=== PATIENT | female | born 1940 | race Caucasian/White ===

== ENCOUNTER 2022-03-11 17:16 | Emergency (ER) | payer OTHER ==
--- OUTSIDE RECORDS SUMMARY | 2022-03-11 17:24 | XMS REPORT | Continuity of Care Document ---
:1940 Author Organization [facility] t Address [address] [place] [address] Care Team Providers Name Role Phone FLORIAN Primary Care Physician Unavailable Rashida Attending Clinician Unavailable Rashida Attending Clinician Unavailable JEWELL Attending Clinician Unavailable Andrew IRAHETA, A Attending Clinician Unavailable JEWELL Attending Clinician Unavailable Franklyn HERNANDEZ Attending Clinician Dany HERNANDEZ Attending Clinician Jewell HERNANDEZ Attending Clinician MAYE Attending Clinician Unavailable Doctor Unassigned, Name Attending Clinician Unavailable Giorgio HERNANDEZ Attending Clinician GIORGIO Attending Clinician Unavailable HOSSEINR Attending Clinician Unavailable Bebe Hale DO Attending Clinician Bebe HALE Attending Clinician Unavailable ZITA Attending Clinician Unavailable TARA Attending Clinician Unavailable Daryl IRAHETA, M Attending Clinician Juan Carlos IRAHETA, L Attending Clinician Singer CHAVEZ Attending Clinician Bbee Johnson MD Attending Clinician Nayely HERNANDEZ Attending Clinician Trevor HERNANDEZ Attending Clinician Attending Clinician Unavailable Rashida Admitting Clinician Unavailable Milton Box Admitting Clinician Unavailable JEWELL Admitting Clinician Unavailable Jewell HERNANDEZ Admitting Clinician Giorgio HERNANDEZ Admitting Clinician GIORGIO Admitting Clinician Unavailable SICKLER Admitting Clinician Unavailable Trevor HERNANDEZ Admitting Clinician Payers Payer Name Policy Type Policy Number Effective Date Expiration Date S [place] Problems Condition Condition Condition Status Onset Resolution Last Treating Co mments Source Name Details Category Date Date Treatment Clinician Date Chest pain Chest pain Disease Active U nivers 5-18 ity of 00:00: [place] 00 Medical Branch Elevated Elevated Disease Active 2020-10 Unive rs troponin troponin 0-21 ity of 00:00: [place] 00 Medical Branch Essential Essential Disease Active 2020-10 Uni vers hypertensi hypertensi 0-21 it y of on on 00:00: [place] 00 Medical Branch 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 0-21 ity of disease disease 00:00: [place] involving involving 00 Medi lyssa [place] Branch coronary coronary artery of artery of [place] heart heart without without angina angina pectoris pectoris Dyslipidem Dyslipidem Disease Active 2020-10 U nivers ia ia 0-21 ity of 00:00: [place] 00 Medical Branch Elevated Elevated Disease Active 2020-10 Unive rs brain brain 0-21 ity of natriureti natriureti 00:00: [place] c peptide c peptide 00 Medi lyssa (BNP) (BNP) Branch level level Syncopal Syncopal Disease Active 2020-10 Unive rs episodes episodes 0-21 ity of 00:00: [place] 00 Medical Branch AMS AMS Disease Active 2020-10 Univers (altered (altered 0-21 ity of mental mental 00:00: [place] status) status) 00 Medical Branch New onset New onset Disease Active 2019-10 Uni vers a-fib a-fib 2-01 ity of 00:00: [place] 00 Medical Branch PAF PAF Disease Active 2019-10 Univers (paroxysma (paroxysma 2- it y of l atrial l atrial 00:00: [place] fibrillati fibrillati 00 Me dical on) on) Branch Acute Acute Disease Active 2019-10 Univers renal renal 1-29 ity of failure failure 00:00: [place] 00 Medical Branch Tachycardi Tachycardi Disease Active 2019-10 U nivers a a 1-29 ity of 00:00: [place] 00 Medical Branch Dementia Dementia Disease Active Unive rs 6-29 ity of 00:00: [place] 00 Medical Branch Allergies, Adverse Reactions, Alerts Allergy Allergy Status Severity Reaction(s) Onset Inactive Treating Comm ents Source Name Type Date Date Clinician No Known DA Active [facility] 03-03 [facility] NO KNOWN Drug Active Univers ALLERGIE Class ity of S [place] [facility] Social History Social Habit Start Date Stop Date Quantity Comments Source Exposure to 2022-02-17 2022-02-27 Not sure [facility] SARS-CoV-2 00:00:00 21:46:00 [facility] (event) [facility] Alcohol intake 2022-02-27 2022-02-27 Ex-drinker [facility] 00:00:00 00:00:00 (finding) [place] [facility] Tobacco use and 2021-08-03 2021-08-03 Never used Universit y of exposure 00:00:00 00:00:00 [place] [facility] Tobacco Comment 2021-08-03 2021-08-03 Stopped in 1963 Univ ersity of 00:00:00 00:00:00 [place] [facility] Sex Ass[birth year] At [birth year] Universit y of 00:00:00 00:00:00 [place] [facility] Smoking Status Start Date Stop Date Source Former smoker 2021-08-03 00:00:00 2021-08-03 00:00:00 Universi ty [facility] Unknown if ever smoked [facility] Medications Ordered Filled Start Stop Current Ordering Indication Dosage Frequency Signature Comments Components Source Medication Medication Date Date Medication? Clinician (SIG) Name Name NaCl 0.9% Yes Infuse Univer s (NS) PgBk 5-22 every 24 ity of 50 mL with 00:00: (twenty-[place] cefTRIAXone 00 ur) hours. Me dical 1 gram SolR Branch NaCl 0.9% Yes Infuse Univer s (NS) PgBk 5-22 every 24 ity of 50 mL with 00:00: (twenty-fo [place] cefTRIAXone 00 ur) hours. Me dical 1 gram SolR Branch pantoprazol Yes 40mg 40 mg, Univ ers e 03-03 Oral, ity of (PROTONIX) 14:00: DAILY, [place] EC tablet 00 First dose Medi lyssa 40 mg on Sat Branch 03/03/22 at 0900, Until Discontinu ed, Routine donepeziL 0 Yes 10mg Take 10 mg Un matti 10 mg 5-21 by mouth ity of tablet 02:42: every [place] [address] morning. Medical Branch memantine 0 Yes 28mg Take 28 mg Un matti HCl 5-21 by mouth ity of (MEMANTINE 02:42: daily. [place] ORAL) Medical Branch glimepiride 0 Yes 1mg Take 1 mg U nivers 1 mg tablet 5-21 by mouth ity of 02:42: daily with [place] [address] breakfast. Medical Branch psyllium Yes Take by Unive rs husk 5-21 mouth 2 ity of (METAMUCIL 02:42: (two) [place] ORAL) 33 times Medical daily. Branch atorvastati Yes 40mg Take 40 mg Univers n 40 mg 5-21 by mouth ity of tablet 02:42: at [place] [address] bedtime. Medical Branch carvediloL Yes 3.125mg Take 3.125 Univers 3.125 mg 5-21 mg by ity of tablet 02:42: mouth [place] [address] daily. Medical Branch carvediloL Yes 6.25mg Take 6.25 Univers 6.25 mg 5-21 mg by ity of tablet 02:42: mouth at [place] [address] bedtime. Medical Branch aspirin 81 0 Yes 81mg Take 81 mg U nivers mg chewable 5-21 by mouth ity of tablet 02:42: daily. [place] [address] Medical Branch donepeziL 0 Yes 10mg Take 10 mg Un matti 10 mg 5-21 by mouth ity of tablet 02:42: every [place] [address] morning. Medical Branch memantine Yes 28mg Take 28 mg Un matti HCl 5-21 by mouth ity of (MEMANTINE 02:42: daily. [place] ORAL) Medical Branch glimepiride 0 Yes 1mg Take 1 mg U nivers 1 mg tablet 5-21 by mouth ity of 02:42: daily with [place] [address] breakfast. Medical Branch psyllium Yes Take by Unive rs husk 5-21 mouth 2 ity of (METAMUCIL 02:42: (two) [place] ORAL) 33 times Medical daily. Branch atorvastati 2022-0 Yes 40mg Take 40 mg Univers n 40 mg 5-21 by mouth ity of tablet 02:42: at [place] [address] bedtime. Medical Branch carvediloL 2021-0 Yes 3.125mg Take 3.125 Univers 3.125 mg 5-21 mg by ity of tablet 02:42: mouth [place] [address] daily. Medical Branch carvediloL 2021-0 Yes 6.25mg Take 6.25 Univers 6.25 mg 5-21 mg by ity of tablet 02:42: mouth at [place] [address] bedtime. Medical Branch aspirin 81 2021-0 Yes 81mg Take 81 mg U nivers mg chewable 5-21 by mouth ity of tablet 02:42: daily. [place] [address] Medical Branch enoxaparin 2021-0 Yes 61mg inject Unive rs 60 mg/0.6 5-21 0.61 mL ity of mL 00:00: under the [place] injection 00 skin every Medi lyssa 12 Branch (twelve) hours. nitroglycer 2021-[address] 1 Uni vers in 0.4 mg 5-21 tablet ity of sublingual 00:00: under the [place] tablet 00 tongue Medical every 5 Branch (five) minutes as needed for Chest pain. pantoprazol 2021-0 Yes 40mg Take 1 Univ ers e 40 mg EC 5-21 tablet by ity of tablet 00:00: mouth [place] 00 daily. Medical Branch enoxaparin 2021-0 Yes 61mg inject Unive rs 60 mg/0.6 5-21 0.61 mL ity of mL 00:00: under the [place] injection 00 skin every Medi lyssa 12 Branch (twelve) hours. nitroglycer 2021-[address] 1 Uni vers in 0.4 mg 5-21 tablet ity of sublingual 00:00: under the [place] tablet 00 tongue Medical every 5 Branch (five) minutes as needed for Chest pain. pantoprazol 2021-0 Yes 40mg Take 1 Univ ers e 40 mg EC 5-21 tablet by ity of tablet 00:00: mouth [place] 00 daily. Medical Branch aspirin 2021-0 Yes 81mg 81 mg, Univers chewable 5-19 Oral, ity of tablet 81 14:00: DAILY, [place] mg 00 First dose Medical on [place] Branch 03/01/22 at 0900, Until Discontinu ed, Routine cefTRIAXone 2022-0 Yes 1000mg 1,000 mg, Univers (ROCEPHIN) 5-19 IV ity of 1,000 mg in 05:00: Piggyback, [place] NaCl 0.9% 00 Q24H ABX, Medic al (NS) 50 mL First dose Bra nch MINI-BAG (after last reorder) on [place] 03/01/22 at 0000, Until Discontinu ed, Administer over 30 Minutes, 50 mL
Reas on for Anti-Infec tive: Empiric Therapy for Suspected Infection< br>Empiric Therapy Site: Urine
D uration of therapy: 7 days carvediloL 0 Yes 6.25mg 6.25 mg, U nivers (COREG) 5-19 Oral, QHS, ity of tablet 6.25 02:00: First dose [place] mg 00 on [facility] 02/28/22 at Branch 2100, Until Discontinu ed, Routine atorvastati 0 Yes 40mg 40 mg, Univ ers n (LIPITOR) -19 Oral, QHS, it y of tablet 40 02:00: First dose [place] mg 00 on [facility] 02/28/22 at Branch 2100, Until Discontinu ed, Routine enoxaparin 0 Yes 1mg/kg 60 mg Univ ers (LOVENOX) 18 (rounded ity of injection 20:00: from 61.2 [place] 60 mg 00 mg = 1 Medical mg/kg Branch ?61.2 kg), Subcutaneo us, Q12H, First dose (after last reorder) on [facility] 02/28/22 at 1500, Until Discontinu ed, MARIELA memantine 0 Yes 20mg 20 mg, Univer s (NAMENDA) -18 Oral, ity of tablet 20 14:00: DAILY, [place] mg 00 First dose Medical on [facility] 02/28/22 at 0900, Until Discontinu ed
Facu lty member approving Restricted medication : NANDO MATTHEWS isosorbide 0 Yes 30mg 30 mg, Unive rs mononitrate 5-18 Oral, ity of (IMDUR) 24 14:00: DAILY, [place] hr tablet 00 First dose Medi lyssa 30 mg on [facility] 02/28/22 at 0900, Until Discontinu ed, Routine donepeziL Yes 10mg 10 mg, Univer s (ARICEPT) 02-28 Oral, QAM, ity of tablet 10 14:00: First dose [place] mg 00 on [facility] Medical 02/28/22 at Branch 0900, Until Discontinu ed, Routine aspirin No 325mg 325 mg, Unive rs tablet 325 02-2818 Oral, ity of mg 13:00: 13:47 ONCE, 1 [place] 00 :00 dose, On Medical [facility] Branch 02/28/22 at 0800, Routine artificial Yes 1[drp] 1 Drop, Un matti tears(hypro 02-28 Both Eyes, it y of mellose) 12:49: PRN, [place] (ISOPTO-TEA 00 Starting Medi lyssa RS) 0.5 % on Sat Branch ophthalmic 02/28/22 at drops 1 0749, Drop Until Discontinu ed, Routine, Dry eyes nitroglycer Yes .4mg 0.4 mg, Uni vers in 02-28 Sublingual ity of (NITROSTAT) 09:14: , Q5MIN [place] as sublingual 40 PRN, Medical tablet 0.4 Starting Branc h mg on [facility] 02/28/22 at 0414, Until Discontinu ed, Routine, Chest pain ondansetron Yes 4mg 4 mg, Slow Univers (ZOFRAN 02-28 IV Push, ity of (PF)) 09:14: Q6HPRN, [place] injection 4 21 Starting Medi lyssa mg on [facility] Branch 02/28/22 at 0414, Until Discontinu ed, Routine, Nausea and Vomiting (N/V) acetaminoph Yes 650mg 650 mg, Un amtti en 02-28 Oral, ity of (TYLENOL) 09:13: Q6HPRN, [place] tablet 650 45 Starting Medic al mg on [facility] Branch 02/28/22 at 0413, Until Discontinu ed, Routine, Pain (scale 1-3) enoxaparin 0 No 1mg/kg 60 mg Uni vers (LOVENOX) 02-2818 (rounded ity o f injection 08:15: 07:33 [place] 61.2 [place] 60 mg 00 :00 mg = 1 Medical mg/kg Branch ?61.2 kg), Subcutaneo us, ONCE, 1 dose, On Sat02/28/22 at 0315, MARIELA Cholecalcif No 2000U Take 2,000 Univers jovita, 02-28 Units by ity of Vitamin D3, 06:53: 00:00 [place] (VITAMIN 29 :00 daily. Medical D3) 50 mcg Branch (2,000 unit) tablet cefTRIAXone 2021- No 1000mg 1,000 mg, Univers (ROCEPHIN) 02-28 IV ity of 1,000 mg in 06:15: 07:35 Piggyback, [place] NaCl 0.9% 00 :00 ONCE, 1 Medical (NS) 50 mL dose, On Branc h MINI-BAG Sat02/28/22 at 0115, Administer over 30 Minutes, 50 mL
Reas on for Anti-Infec tive: Documented Infection< br>Documen romain Infection Site: Urine<br&g t;Duration of Therapy: Other (see Comments) furosemide 2020-10 No [id number] 20mg Take 1 Univers (LASIX) 20 0-23 11-23 tablet by ity of mg tablet 00:00: 05:59 mouth [place] 00 :00 every Medical morning Branch and evening for 30 days. furosemide 2020-10- No [id number] 20mg Take 1 Univers (LASIX) 20 0-23 11-23 tablet by ity of mg tablet 00:00: 05:59 mouth [place] 00 :00 every Medical morning Branch and evening for 30 days. donepeziL 2020-10 Yes 10mg Take 10 mg Un matti 10 mg 0-22 by mouth ity of tablet 18:48: every [place] [address] morning. Medical Branch memantine 2020-10 Yes 28mg Take 28 mg Un matti HCl 0-22 by mouth ity of (MEMANTINE 18:48: daily. [place] ORAL) 36 Medical Branch glimepiride 2020-10 Yes 1mg Take 1 mg U nivers 1 mg tablet 0-22 by mouth ity of 18:48: daily with [place] [address] breakfast. Medical Branch Cholecalcif 2020-10 Yes 2000U Take 2,000 Univers jovita, 0-22 Units by ity of Vitamin D3, 18:48: mouth [place] (VITAMIN 36 daily. Medical D3) 50 mcg Branch (2,000 unit) tablet psyllium 2020-10 Yes Take by Unive rs husk 0-22 mouth 2 ity of (METAMUCIL 18:48: (two) [place] ORAL) 36 times Medical daily. Branch donepeziL 2020-10 Yes 10mg Take 10 mg Un matti 10 mg 0-22 by mouth ity of tablet 18:48: every [place] 36 morning. Medical Branch memantine 2020-10 Yes 28mg Take 28 mg Un matti HCl 0-22 by mouth ity of (MEMANTINE 18:48: daily. [place] ORAL) 36 Medical Branch glimepiride 2020-10 Yes 1mg Take 1 mg U nivers 1 mg tablet 0-22 by mouth ity of 18:48: daily with [place] 36 breakfast. Medical Branch Cholecalcif 2020-10 Yes 2000U Take 2,000 Univers jovita, 0-22 Units by ity of Vitamin D3, 18:48: mouth [place] (VITAMIN 36 daily. Medical D3) 50 mcg Branch (2,000 unit) tablet psyllium 2020-10 Yes Take by Unive rs husk 0-22 mouth 2 ity of (METAMUCIL 18:48: (two) [place] ORAL) 36 times Medical daily. Branch donepeziL 2020-10 Yes 10mg Take 10 mg Un matti 10 mg 0-22 by mouth ity of tablet 18:48: every [place] 36 morning. Medical Branch memantine 2020-10 Yes 28mg Take 28 mg Un matti HCl 0-22 by mouth ity of (MEMANTINE 18:48: daily. [place] ORAL) 36 Medical Branch glimepiride 2020-10 Yes 1mg Take 1 mg U nivers 1 mg tablet 0-22 by mouth ity of 18:48: daily with [place] 36 breakfast. Medical Branch Cholecalcif 2020-10 Yes 2000U Take 2,000 Univers jovita, 0-22 Units by ity of Vitamin D3, 18:48: mouth [place] (VITAMIN 36 daily. Medical D3) 50 mcg Branch (2,000 unit) tablet psyllium 2020-10 Yes Take by Unive rs husk 0-22 mouth 2 ity of (METAMUCIL 18:48: (two) [place] ORAL) 36 times Medical daily. Branch furosemide 2020-10- No 20mg Take 20 mg Univers (LASIX) 20 0-22 by mouth ity of mg tablet 17:40: 00:00 daily. [place] 59 :00 Medical Branch furosemide 2020-10 Yes 20mg 20 mg, Unive rs (LASIX) 0-22 Oral, ity of tablet 20 14:00: QAM+PM, [place] mg 00 First dose Medical (after Branch last modificati on) on Sat08/04/21 at 0900, Until Discontinu ed, Routine memantine 2020-10 Yes 20mg 20 mg, Univer s (NAMENDA) 0-22 Oral, ity of tablet 20 14:00: DAILY, [place] mg 00 First dose Medical (after Branch last modificati on) on Sat08/04/21 at 0900, Until Discontinu ed
F aculty member approving Restricted medication : DAIANA SARGENT isosorbide 2020-10 Yes 30mg 30 mg, Unive rs mononitrate 0-22 Oral, ity of (IMDUR) 24 14:00: DAILY, [place] hr tablet 00 First dose Medi lyssa 30 mg on Sat Branch 08/04/21 at 0900, Until Discontinu ed, Routine donepeziL 2020-10 Yes 10mg 10 mg, Univer s (ARICEPT) 0-22 Oral, QAM, ity of tablet 10 14:00: First dose [place] mg 00 on Sat [facility] 08/04/21 Branch at 0900, Until Discontinu ed, Routine carvediloL 2020-10 Yes 3.125mg 3.125 mg, Univers (COREG) 0-22 Oral, BID ity of tablet 13:00: MEALS, [place] 3.125 mg 00 First dose Medic al on Sat Branch 08/04/21 at 0800, Until Discontinu ed, Routine atorvastati 2020-10 Yes 40mg 40 mg, Univ ers n (LIPITOR) 0-22 Oral, QHS, it y of tablet 40 02:00: First dose [place] mg 00 on [place] [facility] 08/03/21 Branch at 2100, Until Discontinu ed, Routine enoxaparin 2020-10 Yes 30mg 30 mg, Unive rs (LOVENOX) 0-21 Subcutaneo ity of injection 22:00: us, DAILY, [place] 30 mg 00 First dose Medical on [place] Branch 08/03/21 at 1700, Until Discontinu ed, Routine acetaminoph 2020-10 Yes 650mg 650 mg, Un matti en 0-21 Oral, ity of (TYLENOL) 20:54: Q6HPRN, [place] tablet 650 58 Starting Medic al mg on [place] Branch 08/03/21 at 1554, Until Discontinu ed, Routine, Pain (scale 1-3) isosorbide 2019-10 Yes 30mg 30 mg, Unive rs mononitrate 2-05 Oral, ity of (IMDUR) 24 15:00: DAILY, [place] hr tablet 00 First dose Medi lyssa 30 mg on [facility] Branch 09/17/20 at 0900, Until Discontinu ed, Routine atorvastati 2019-10 Yes 80mg 80 mg, Univ ers n (LIPITOR) 2-05 Oral, QHS, it y of tablet 80 03:00: First dose [place] mg 00 on Sat Medical 09/16/20 at Branch 2100, Until Discontinu ed, Routine lactated 2019-10 2020- No 500mL at 50 Univer s ringers IV 2-05 12-05 mL/hr, 500 it y of infusion 00:30: 00:06 mL, [place] 500 mL 00 :00 Intravenou Medical s, ONCE, 1 Branch dose, 09/16/20 at 1830, Routine apixaban 2019-10 Yes [id number] 2.5mg Take 1 Univer s 2.5 mg 2-05 tablet by ity of tablet 00:00: mouth 2 [place] [address] (two) Medical times Branch daily. Indication s: prevention of thromboemb olism in paroxysmal atrial fibrillati on atorvastati 2019-10 Yes [id number] 80mg Take 1 Univers n 80 mg 2-05 tablet by ity of tablet 00:00: mouth at [place] [address] bedtime. Medical Branch apixaban 2019-10 Yes [id number] 2.5mg Take 1 Univer s 2.5 mg 2-05 tablet by ity of tablet 00:00: mouth 2 [place] 00 (two) Medical times Branch daily. Indication s: prevention of thromboemb olism in paroxysmal atrial fibrillati on atorvastati 2019-10 Yes [id number] 80mg Take 1 Univers n 80 mg 2-05 tablet by ity of tablet 00:00: mouth at [place] 00 bedtime. Medical Branch carvediloL 2019-10 Yes [id number] 3.125mg Take 1 Univers 3.125 mg 2-05 tablet by ity of tablet 00:00: mouth (two) Medical times [facility] daily with meals. clopidogreL 2019-10 Yes [id number] 75mg Take 1 Univers 75 mg 2-05 tablet by ity of tablet 00:00: mouth [place] 00 daily. Medical Branch isosorbide 2019-10 Yes [id number] 30mg Take 1 U nivers mononitrate 2-05 tablet by ity of 30 mg 24 hr 00:00: mouth [place] tablet 00 daily. Medical Branch carvediloL 2019-10 Yes [id number] 3.125mg Take 1 Univers 3.125 mg 2-05 tablet by ity of tablet 00:00: mouth (two) Medical times [facility] daily with meals. apixaban 2019-10 Yes [id number] 2.5mg Take 1 Univer s 2.5 mg 2-05 tablet by ity of tablet 00:00: mouth (two) Medical times [facility] daily. Indication s: prevention of thromboemb olism in paroxysmal atrial fibrillati on atorvastati 2019-10 Yes [id number] 80mg Take 1 Univers n 80 mg 2-05 tablet by ity of tablet 00:00: mouth at [place] 00 bedtime. Medical Branch carvediloL 2019-10 Yes [id number] 3.125mg Take 1 Univers 3.125 mg 2-05 tablet by ity of tablet 00:00: mouth (two) Medical times [facility] daily with meals. clopidogreL 2019-10 Yes [id number] 75mg Take 1 Univers 75 mg 2-05 tablet by ity of tablet 00:00: mouth [place] 00 daily. Medical Branch isosorbide 2019-10 Yes [id number] 30mg Take 1 U nivers mononitrate 2-05 tablet by ity of 30 mg 24 hr 00:00: mouth [place] tablet 00 daily. Medical Branch apixaban 2019-10 Yes [id number] 2.5mg Take 1 Univer s 2.5 mg 2-05 tablet by ity of tablet 00:00: mouth (two) Medical times Branch daily. Indication s: prevention of thromboemb olism in paroxysmal atrial fibrillati on atorvastati 2019-10 Yes [id number] 80mg Take 1 Univers n 80 mg 2-05 tablet by ity of tablet 00:00: mouth at [place] 00 bedtime. Medical Branch clopidogreL 2019-10 Yes [id number] 75mg Take 1 Univers 75 mg 2-05 tablet by ity of tablet 00:00: mouth [place] 00 daily. Medical Branch carvediloL 2019-10 Yes [id number] 3.125mg Take 1 Univers 3.125 mg 2-05 tablet by ity of tablet 00:00: mouth 2 (two) Medical times Branch daily with meals. clopidogreL 2019-10 Yes [id number] 75mg Take 1 Univers 75 mg 2-05 tablet by ity of tablet 00:00: mouth [place] 00 daily. Medical Branch isosorbide 2019-10 Yes [id number] 30mg Take 1 U nivers mononitrate 2-05 tablet by ity of 30 mg 24 hr 00:00: mouth [place] tablet 00 daily. Medical Branch apixaban 2019-10 Yes [id number] 2.5mg Take 1 Univer s 2.5 mg 2-05 tablet by ity of tablet 00:00: mouth 2 (two) Medical times Branch daily. Indication s: prevention of thromboemb olism in paroxysmal atrial fibrillati on atorvastati 2019-10 Yes [id number] 80mg Take 1 Univers n 80 mg 2-05 tablet by ity of tablet 00:00: mouth at [place] 00 bedtime. Medical Branch carvediloL 2019-10 Yes [id number] 3.125mg Take 1 Univers 3.125 mg 2-05 tablet by ity of tablet 00:00: mouth (two) Medical times Branch daily with meals. clopidogreL 2019-10 Yes [id number] 75mg Take 1 Univers 75 mg 2-05 tablet by ity of tablet 00:00: mouth [place] 00 daily. Medical Branch isosorbide 2019-10 Yes [id number] 30mg Take 1 U nivers mononitrate 2-05 tablet by ity of 30 mg 24 hr 00:00: mouth [place] tablet 00 daily. Medical Branch isosorbide 2019-10 Yes [id number] 30mg Take 1 U nivers mononitrate 2-05 tablet by ity of 30 mg 24 hr 00:00: mouth [place] tablet 00 daily. Medical Branch apixaban 2019-10 Yes [id number] 2.5mg Take 1 Univer s 2.5 mg 2-05 tablet by ity of tablet 00:00: mouth 2 (two) Medical times Branch daily. Indication s: prevention of thromboemb olism in paroxysmal atrial fibrillati on atorvastati 2019-10 Yes [id number] 80mg Take 1 Univers n 80 mg 2-05 tablet by ity of tablet 00:00: mouth at [place] 00 bedtime. Medical Branch carvediloL 2019-10 Yes [id number] 3.125mg Take 1 Univers 3.125 mg 2-05 tablet by ity of tablet 00:00: mouth 2 (two) Medical times Branch daily with meals. clopidogreL 2019-10 Yes [id number] 75mg Take 1 Univers 75 mg 2-05 tablet by ity of tablet 00:00: mouth [place] 00 daily. Medical Branch isosorbide 2019-10 Yes [id number] 30mg Take 1 U nivers mononitrate 2-05 tablet by ity of 30 mg 24 hr 00:00: mouth [place] tablet 00 daily. Medical Branch apixaban 2019-10 Yes [id number] 2.5mg Take 1 Univer s 2.5 mg 2-05 tablet by ity of tablet 00:00: mouth 2 (two) Medical times Branch daily. Indication s: prevention of thromboemb olism in paroxysmal atrial fibrillati on atorvastati 2019-10 Yes [id number] 80mg Take 1 Univers n 80 mg 2-05 tablet by ity of tablet 00:00: mouth at [place] 00 bedtime. Medical Branch carvediloL 2019-10 Yes [id number] 3.125mg Take 1 Univers 3.125 mg 2-05 tablet by ity of tablet 00:00: mouth 2 (two) Medical times Branch daily with meals. clopidogreL 2019-10 Yes [id number] 75mg Take 1 Univers 75 mg 2-05 tablet by ity of tablet 00:00: mouth [place] 00 daily. Medical Branch isosorbide 2019-10 Yes [id number] 30mg Take 1 U nivers mononitrate 2-05 tablet by ity of 30 mg 24 hr 00:00: mouth [place] tablet 00 daily. Medical Branch apixaban 2019-10 Yes [id number] 2.5mg Take 1 Univer s 2.5 mg 2-05 tablet by ity of tablet 00:00: mouth 2 00 (two) Medical times Branch daily. Indication s: prevention of thromboemb olism in paroxysmal atrial fibrillati on atorvastati 2019-10 Yes [id number] 80mg Take 1 Univers n 80 mg 2-05 tablet by ity of tablet 00:00: mouth at 00 bedtime. Medical Branch carvediloL 2019-10 Yes [id number] 3.125mg Take 1 Univers 3.125 mg 2-05 tablet by ity of tablet 00:00: mouth 2 (two) Medical times Branch daily with meals. isosorbide 2019-10 Yes [id number] 30mg Take 1 U nivers mononitrate 2-05 tablet by ity of 30 mg 24 hr 00:00: mouth [place] tablet 00 daily. Medical Branch apixaban 2019-10 Yes [id number] 2.5mg Take 1 Univer s 2.5 mg 2-05 tablet by ity of tablet 00:00: mouth 2 (two) Medical times Branch daily. Indication s: prevention of thromboemb olism in paroxysmal atrial fibrillati on atorvastati 2019-10 Yes [id number] 80mg Take 1 Univers n 80 mg 2-05 tablet by ity of tablet 00:00: mouth at 00 bedtime. Medical Branch carvediloL 2019-10 Yes [id number] 3.125mg Take 1 Univers 3.125 mg 2-05 tablet by ity of tablet 00:00: mouth (two) Medical times Branch daily with meals. isosorbide 2019-10 Yes [id number] 30mg Take 1 U nivers mononitrate 2-05 tablet by ity of 30 mg 24 hr 00:00: mouth [place] tablet 00 daily. Medical Branch apixaban 2019-10 Yes [id number] 2.5mg Take 1 Univer s 2.5 mg 2-05 tablet by ity of tablet 00:00: mouth 2 (two) Medical times Branch daily. Indication s: prevention of thromboemb olism in paroxysmal atrial fibrillati on atorvastati 2019-10 Yes [id number] 80mg Take 1 Univers n 80 mg 2-05 tablet by ity of tablet 00:00: mouth at 00 bedtime. Medical Branch carvediloL 2019-10 Yes [id number] 3.125mg Take 1 Univers 3.125 mg 2-05 tablet by ity of tablet 00:00: mouth 2 (two) Medical times Branch daily with meals. isosorbide 2019-10 Yes [id number] 30mg Take 1 U nivers mononitrate 2-05 tablet by ity of 30 mg 24 hr 00:00: mouth [place] tablet 00 daily. Medical Branch isosorbide 2019-10 Yes [id number] 30mg Take 1 U nivers mononitrate 2-05 tablet by ity of 30 mg 24 hr 00:00: mouth [place] tablet 00 daily. Medical Branch isosorbide 2019-10 Yes [id number] 30mg Take 1 U nivers mononitrate 2-05 tablet by ity of 30 mg 24 hr 00:00: mouth [place] tablet 00 daily. Medical Branch apixaban 2019-10- No [id number] 2.5mg Take 1 Unive rs 2.5 mg 2-05 05-18 tablet by ity of tablet 00:00: 00:00 mouth 2 [place] 00 :00 (two) Medical times Branch daily. Indication s: prevention of thromboemb olism in paroxysmal atrial fibrillati on atorvastati 2019-10- No [id number] 80mg Take 1 Univers n 80 mg 2-05 05-18 tablet by ity of tablet 00:00: 00:00 mouth at [place] 00 :00 bedtime. Medical Branch carvediloL 2019-10- No [id number] 3.125mg Take 1 Univers 3.125 mg 2-05 05-18 tablet by ity o f tablet 00:00: 00:00 mouth 2 [place] 00 :00 (two) Medical times Branch daily with meals. clopidogreL 2019-10- No [id number] 75mg Take 1 Univers 75 mg 2-05 10-21 tablet by ity of tablet 00:00: 00:00 mouth [place] 00 :00 daily. Medical Branch clopidogreL 2019-10- No [id number] 75mg Take 1 Univers 75 mg 2-05 12-05 tablet by ity of tablet 00:00: 00:00 mouth [place] 00 :00 daily. Medical Branch isosorbide 2019-10- No [id number] 30mg Take 1 Univers mononitrate 2-05 12-05 tablet by it y of 30 mg 24 hr 00:00: 00:00 [place] tablet 00 :00 daily. [facility] Polyethylen 2019-10 Yes 17g 17 g, Unive rs e Glycol 2-04 Oral, ity of 3350 15:00: DAILY, [place] (MIRALAX) 00 First dose Medi lyssa powder 17 g on Sat Branch 09/16/20 at 0900, Until Discontinu ed, Routine clopidogreL 2019-10 Yes 75mg 75 mg, Univ ers (PLAVIX) 11-17 Oral, ity of tablet 75 15:00: DAILY, [place] mg 00 First dose Medical on Sat Branch 09/16/20 at 0900, Until Discontinu ed, Routine magnesium 2019-10- No 4g 4 g, IV Univ ers sulfate in 11-17 Piggyback, it y of water 4 15:00: 14:58 ONCE, 1 [place] gram/50 mL 00 :00 dose, Fri Medi lyssa (8 %) IV 09/16/20 at [facility] h Piggyback 4 0900, g Routine apixaban 2019-10 Yes 2.5mg 2.5 mg, Unive rs (ELIQUIS) 11-17 Oral, BID, ity of tablet 2.5 14:00: First dose [place] mg 00 on Sat Medical 09/16/20 at Branch 0800, Until Discontinu ed, Routine carvediloL 2019-10 Yes 3.125mg 3.125 mg, Univers (COREG) 11-17 Oral, BID ity of tablet 14:00: MEALS, [place] 3.125 mg 00 First dose Medic al on Sat Branch 09/16/20 at 0800, Until Discontinu ed, Routine KCL 2019-10- No 40meq 40 mEq, Univers (KLOR-CON 11-17 Oral, BID, ity of M20) tablet 14:00: 03:04 2 doses, [place] 40 mEq 00 :00 First dose Medical on Sat Branch 09/16/20 at 0800, Last dose on Sat09/16/20 at 2000, Routine apixaban 2019-10 2020- No [id number] 2.5mg Take 1 Unive rs 2.5 mg 11-17 tablet by ity of tablet 00:00: 00:00 mouth 2 [place] 00 :00 (two) Medical times Branch daily. Indication s: prevention of thromboemb olism in paroxysmal atrial fibrillati on atorvastati 2019-10 2020- No [id number] 80mg Take 1 Univers n 80 mg 11-17 tablet by ity of tablet 00:00: 00:00 mouth at [place] 00 :00 bedtime. Medical Branch carvediloL 2019-10- No [id number] 3.125mg Take 1 Univers 3.125 mg 11-17 tablet by ity o f tablet 00:00: 00:00 mouth 2 [place] 00 :00 (two) Medical times Branch daily with meals. NaCl 0.9% 2019-10 No 250mL at 75 Unive rs (NS) bolus 11-16 mL/hr, 250 it y of infusion 20:00: 22:55 mL, IV [place] 250 mL 00 :00 Piggyback, Medical ONCE, 1 Branch dose, [place] 12/20 at 1400, MARIELA lidocaine 2019-10- No Infiltrati U nivers 1% (PF) 11-16 on, ity of (XYLOCAINE) 17:15: 17:15 TITRATE - [place] injection 15 :15 FOR Medical PROCEDURE Branch USE, 1 dose, Starting [place] 12//20 at 1115, Until [place] 12//20 at 1115, Routine FENTanyl PF 2019-10- No Slow IV Un matti (SUBLIMAZE 11-16 Push, ity of (PF)) 17:00: 17:00 TITRATE - [place] injection 00 :00 FOR Medical PROCEDURE Branch USE, 1 dose, Starting [place] 12//20 at 1100, Until [place] 12/3/20 at 1100, Routine midazolam 2019-10- No IV Push, Uni vers (VERSED) 11-16 TITRATE - ity o f injection 17:00: 17:00 FOR [place] 00 :00 PROCEDURE Medical USE, 1 Branch dose, Starting [place] 12//20 at 1100, Until [place] 12/3/20 at 1100, Routine aspirin 2019-10- No Oral, Univers chewable 11-16 TITRATE - ity o f tablet 15:33: 15:33 FOR [place] 23 :23 PROCEDURE Medical USE, 1 Branch dose, Starting [place] 12/3/20 at 0933, Until [place] 12/3/20 at 0933, Routine magnesium 2019-10- No 2g 2 g, IV Univ ers sulfate in 11-15 Piggyback, it y of water 2 15:00: 16:00 ONCE, 1 [place] gram/50 mL 00 :00 dose, Wed Medi lyssa (4 %) 09/14/20 at [facility] infusion 2 0900, g Routine NaCl 0.9% 2019-10- No 250mL at 999 Univ ers (NS) bolus 11-1502 mL/hr, 250 it y of infusion 14:15: 14:00 mL, IV [place] 250 mL 00 :00 Piggyback, Medical ONCE, 1 Branch dose, 09/14/20 at 0815, STAT heparin 2019-10- No 80U/kg 5,000 Univer s 1000 11-15 Units (80 ity of unit/mL 05:15: 05:50 Units/kg [place] injection 00 :00 ?62.5 kg), Medi lyssa Soln 5,000 IV Push, Branc h Units ONCE, 1 dose, Sat09/13/20 at 2315, Routine heparin 2019-10- No 3000U FOR Univers (1,000 11-15 REBOLUSING ity of unit/mL, 10 05:12: 12:45 , Starting [place] mL vial) 14 :26 Tue Medical 09/13/20 at Branch 2312, Until 09/16/20 at 0645, Routine
Dosing based on aPTT testing parameters (refer to continuous heparin drip order)
heparin 2019-10- No 18U/kg/ 18 Univer s 25,000 11-15 12-04 h Units/kg/h ity of Units/250 05:12: 12:45 r ?62.5 kg [place] mL 14 :26 (11.25 Medical (Premixed mL/hr), IV Bran ch Bag) in Infusion, 0.45 % NS TITRATE, Parameters in Admin. Instr., Starting Sat09/13/20 at 2312
CA UTION - If LMWH given in ER, AVOID bolus and start next dose/drip 12 hrs after ER dosage.&nb sp; M ust program rate using programmab le infusion pump.&nbsp ;&nbsp ;Check with the ordering provider first prior to any administra tion should the patient be on existing/a dditional anticoagul ant therapy. Rang e, Dosing and Testing: &nbs p;DO NOT ADJUST INITIAL BOLUS OR INITIAL INFUSION RATE.&nbsp ; _ &nb sp;FOR [facility], AND [facility] ONLY &nbs p; - aPTT < 35: & nbsp;Bolus 5000 units, increase rate 300 units/hr&n bsp; - aPTT 35-44:&nbs p; Lv jolene 3000 units, increase rate 200 units/hr&n bsp; - aPTT 45-54:&nbs p; In crease rate 100 units/hr&n bsp; - aPTT 55-85:&nbs p; NO CHANGE&nbs p; - aPTT 86-95:&nbs p; De crease rate 100 units/hr&n bsp; - aPTT 96-120:&nb sp; H old 30 minutes, decrease rate 150 units/hr&n bsp; - aPTT > 120: Hold 60 minutes, decrease rate 200 units/hr&n bsp; Check aPTT 6 hours after initiation , then Q6H after every change, aPTT Q12H once therapeuti c levels are reached.&n bsp;&n bsp; ____ &nbs p; FO [facility] ONLY - aPTT < 40: & nbsp;Bolus 5000 units, increase rate 300 units/hr&n bsp; - aPTT 40-49:&nbs p; Lv jolene 3000 units, increase rate 200 units/hr&n bsp; - aPTT 50-59:&nbs p; In crease rate 100 units/hr&n bsp; - aPTT 60-85:&nbs p; NO CHANGE&nbs p; - aPTT 86-95:&nbs p; De crease rate 100 units/hr&n bsp; - aPTT 96-120:&nb sp; H old 30 minutes, decrease rate 150 units/hr&n bsp; - aPTT > 120: Hold 60 minutes, decrease rate 200 units/hr&a mp;nbsp;&n bsp;Check aPTT 6 hours after initiation , then Q6H after every change, aPTT Q12H once therapeuti c levels are reached.<b r> KCL 2019-10- No 40meq 40 mEq, IV Unive rs (POTASSIUM 11-15 Piggyback, it y of CHLORIDE) 03:00: 04:21 ONCE, 1 [place] 40 mEq in 00 :00 dose, [facility] Medic al NaCl 0.9% 09/13/20 at Bran ch (NS) 2100, 250 piggyback mL lidocaine 2019-10- No 5mL 5 mL, Univer s 1% (PF) 11-15 Subcutaneo ity o f (XYLOCAINE) 00:15: 01:03 us, ONCE, [place] injection 5 00 :00 1 dose, Medic al mL [facility] 09/13/20 at 1815, Routine potassium 2019-10- No 40meq 40 mEq, Uni vers chloride 40 11-14 Intravenou i ty of mEq in 100 23:30: 05:11 s, ONCE, 1 [place] mL IVPB 00 :00 dose, [facility] Medical 09/13/20 at Branch 1730, 100 mL Sliding 2019-10 Yes Subcutaneo Univ ers Scale 2-01 us, TID ity of Insulin - 23:00: MEALS+HS, [place]re as Aspart 00 First dose Medical (NOVOLOG) + on [facility] Fsbg 09/13/20 at Testing 1700, Until Discontinu ed, Routine NaCl 0.9% 2019-10 2020- No 1000mL at 999 Uni vers (NS) IV 11-14 mL/hr, IV ity of infusion 18:15: 19:00 Infusion, Jere as 1,000 mL 00 :00 ONCE, 1 Medical dose, [facility] 09/13/20 at 1215, Routine amiodarone 2019-10- No 150mg 150 mg, IV Univers 150 mg/100 11-14 Piggyback, it y of mL 18:15: 17:32 ONCE, 1 [place] (NEXTERONE) 00 :00 dose, [facility] Med ical RTU 09/13/20 at Branch infusion 1215 150 mg lactated 2019-10- No 1000mL at 100 Univ ers ringers IV 11-14 12-02 mL/hr, ity of infusion 15:30: 15:05 1,000 mL, Jere as 1,000 mL 00 :00 IV Medical Infusion, Branch ONCE, 1 dose, [facility] 09/13/20 at 0930, Routine NaCl 0.9% 2019-10 2020- No 500mL at 100 Univ ers (NS) IV 11-1402 mL/hr, IV ity of infusion 03:15: 15:04 Infusion, [place] as 500 mL 00 :00 ONCE, 1 Medical dose, [facility] 09/12/20 at 2115, Routine NaCl 0.9% 2019-10 2020- No 500mL at 999 Univ ers (NS) bolus 11-14 mL/hr, 500 it y of infusion 03:15: 15:04 mL, IV [place] 500 mL 00 :00 Piggyback, Medical ONCE, 1 Branch dose, [facility] 09/12/20 at 2115, STAT NaCl 0.9% 2019-10 2020- No 500mL at 100 Univ ers (NS) IV 11-12 1202 mL/hr, IV ity of infusion 17:45: 13:11 Infusion, [place] 500 mL 00 :02 CONTINUOUS Medical , Starting Branch 09/12/20 at 1145, Until Sat09/14/20 at 0711, Routine NaCl 0.9% 2019-10 2020- No 500mL at 999 Univ ers (NS) bolus 11-1230 mL/hr, 500 it y of infusion 17:45: 20:00 mL, IV [place] 500 mL 00 :00 Piggyback, Medical ONCE, 1 Branch dose, [facility] 09/12/20 at 1145, STAT NORepinephr 2019-10 2020- No .05ug/k 0.05-1.5 Univers ine 4 mg in 11-12 12-04 g/min mcg/kg/min ity of D5W 250 mL 16:12: 12:45 ?62.5 kg [place] infusion 13 :26 (11.7188-3 Medic al RTU 51.5625 Branch mL/hr, rounded to 11.72-351. 56 mL/hr), IV Infusion, TITRATE, MAP Goal > or = 60 mmHg, Starting Sat09/12/20 at 1012
In itiate titration at 0.05 mcg/kg/min . &nb sp;Increas e by 0.01 mcg/kg/min every 30 seconds to 5 minutes as needed to reach and maintain goal blood pressure.& nbsp;&nbsp ;Maximum dose = 1.5 mcg/kg/min . &nb sp;If goal not maintained at maximum allowed dose, contact prescriber .
magnesium 2019-10- No 2g 2 g, IV Univ ers sulfate in 11-12 Piggyback, it y of water 2 13:00: 16:00 ONCE, 1 [place] gram/50 mL 00 :00 dose, Mon Medi lyssa (4 %) 09/12/20 Branch infusion 2 at 0700, g Routine vancomycin 2019-10 No 15mg/kg 1,000 mg Univers (VANCOCIN) 11-12 (rounded ity of 1,000 mg in 11:15: 13:00 from 937.5 [place] NaCl 0.9% 00 :00 mg = 15 Medical (NS) 250 mL mg/kg Branch VIAL-MATE ?62.5 kg), IV IV piggyback Piggyback, ONCE, 1 dose, 09/12/20 at 0515, 250 mL
Reas on for Anti-Infec tive: Empiric Therapy for Suspected Infection< br>Empiric Therapy Site: Blood
D uration of therapy: 72 hours magnesium 2019-10- No 2g 2 g, IV Univ ers sulfate in 11-12 Piggyback, it y of water 2 11:00: 12:00 ONCE, 1 [place] gram/50 mL 00 :00 dose, Mon Medi lyssa (4 %) 09/12/20 Branch infusion 2 at 0500, g Routine dextrose 50 2019-10- No 1{vial} 50 mL (1 Univers % in water 11-12 Vial), ity of (D50W) 05:00: 03:15 Slow IV [place] injection 00 :00 Push, Medical 50 mL ONCE, 1 Branch dose, 09/11/20 at 2300, Routine glucagon 2019-10 Yes 1mg 1 mg, Univers (GLUCAGEN 30 Intramuscu ity of DIAGNOSTIC 03:54: lar, PRN, [place] KIT) 54 Starting Medical injection 1 [place] mg 09/11/20 at 2154, Until Discontinu ed, MARIELA, Blood Glucose < or = 70 mg/dL and patient is unable to swallow or has mental changes. dextrose 50 2019-10 Yes 25mL 25 mL, Univ ers % in water 30 Slow IV ity of (D50W) 03:54: Push, PRN, [place] injection 54 Starting Medica l 25 mL [place] Branch 09/11/20 at 2154, Until Discontinu ed, MARIELA, Blood Glucose < or = 70 mg/dL and patient is unable to swallow or has mental status changes. phenylephri 2019-10 2020- No .5ug/kg 0.5-6 U nivers ne 10 mg in 11-12 12-04 /min mcg/kg/min i ty of NaCl 0.9% 01:14: 12:45 ?62.5 kg [place] as (NS) 250 mL 14 :26 (46.875-56 Me dical infusion 2.5 mL/hr, Branc h RTU rounded to 46.88-562. 5 mL/hr), IV Infusion, TITRATE, MAP Goal > or = 65 mmHg, Starting [place] 09/11/20 at 1914
In itiate infusion at 0.5 mcg/kg/min . &nb sp;Increas e by 0.1 mcg/kg/min every 30 seconds to 5 minutes as needed to reach and maintain goal blood pressure.& nbsp;&nbsp ;Maximum dose = 6 mcg/kg/min . &nb sp;If goal not maintained at maximum allowed dose, contact prescriber .
sodium 2019-10 2020- No 150meq IV Univers bicarbonate 11-11 Infusion, it y of 150 mEq in 23:45: 00:06 at 75 [place] water for 00 :00 mL/hr, 150 Medi lyssa injection, mEq, ONCE, Bra nch sterile 1 dose, 1,000 mL IV Sun infusion 09/11/20 at 1745, Routine Sliding 2019-10- No Subcutaneo Uni vers Scale 11-11 us, TID ity of Insulin - 19:30: 22:37 MEALS+HS, [place] Aspart 00 :43 First dose Medical (NOVOLOG) + on [place] Branch Fsbg 09/11/20 Testing at 1330, Until Discontinu ed, Routine meropenem 2019-10- No 500mg 500 mg, IV Univers (MERREM) 11-11 Piggyback, ity of 500 mg in 18:45: 16:13 Administer [place] NaCl 0.9% 00 :19 over 60 Medical (NS) 100 mL Minutes, Bran ch MINI-BAG Q6H ABX, First dose (after last modificati on) on [place] 09/11/20 at 1245, Until Discontinu ed, MARIELA
Re stricted use approved by: BRIAN 8TH FLOOR
R randy for Anti-Infec tive: Empiric Therapy for Suspected Infection< br>Empiric Therapy Site: Blood
D uration of therapy: 7 days CVVHD fluid 2019-10- No 2000mL 2,000 mL, Univers (ACCUSOL 11-11 CRRT ity of 2R3811) 14:45: 13:57 Circuit, [place] dialysate 00 :34 CONTINUOUS Medi lyssa 2,000 mL , Starting Branc h [place] 09/11/20 at 0845, Until Sat09/16/20 at 0757, Routine heparin 2019-10- No 5000U 5,000 Univers (porcine) 11-11 Units, ity of injection 14:00: 21:52 Subcutaneo [place] 5,000 Units 00 :08 us, Q12H, Med ical First dose Branch on [place] 09/11/20 at 0800, Until Discontinu ed, Routine NORepinephr 2019-10- No .05ug/k 0.05-1.5 Univers ine 4 mg in 11-11 1130 g/min mcg/kg/min ity of D5W 250 mL 11:32: 16:12 ?62.5 kg [place] infusion 33 :59 (11.7188-3 Medic al RTU 51.5625 Branch mL/hr, rounded to 11.72-351. 56 mL/hr), IV Infusion, TITRATE, MAP Goal > or = 65 mmHg, Starting [place] 09/11/20 at 0532
In itiate titration at 0.05 mcg/kg/min . &nb sp;Increas e by 0.01 mcg/kg/min every 30 seconds to 5 minutes as needed to reach and maintain goal blood pressure.& nbsp;&nbsp ;Maximum dose = 1.5 mcg/kg/min . &nb sp;If goal not maintained at maximum allowed dose, contact prescriber .
CVVHD fluid 2019-10- No 2000mL 2,000 mL, Univers (ACCUSOL 11-11 1204 CRRT ity of 5B248) 11:00: 13:57 Circuit, [place] dialysate 00 :34 CONTINUOUS Medi lyssa 2,000 mL , Starting [facility] 09/11/20 at 0500, Until Sat09/16/20 at 0757, Routine NaCl 0.9% 2019-10- No 1000mL at 999 Uni vers (NS) IV 11-11 mL/hr, IV ity of infusion 10:15: 10:25 Infusion, Jere as 1,000 mL 00 :00 ONCE, 1 Medical dose, [facility] 09/11/20 at 0415, Routine calcium 2019-10- No 2g 2,000 mg Unive rs gluconate 11-11 (2 g), ity of 100 mg/mL 09:30: 08:31 Slow IV [place] (10%) 00 :00 Push, Medical injection ONCE, 1 Branch 2,000 mg dose, [place] 09/11/20 at 0330, Routine phenylephri 2019-10 2020- No .5ug/kg 0.5-6 U nivers ne 10 mg in 11-11 /min mcg/kg/min i ty of NaCl 0.9% 09:17: 21:48 ?62.5 kg [place] as (NS) 250 mL 08 :17 (46.875-56 Me dical infusion 2.5 mL/hr, [facility] h RTU rounded to 46.88-562. 5 mL/hr), IV Infusion, TITRATE, MAP Goal > or = 65 mmHg, Starting 09/11/20 at 0317
In itiate infusion at 0.5 mcg/kg/min . &nb sp;Increas e by 0.1 mcg/kg/min every 30 seconds to 5 minutes as needed to reach and maintain goal blood pressure.& nbsp;&nbsp ;Maximum dose = 6 mcg/kg/min . &nb sp;If goal not maintained at maximum allowed dose, contact prescriber .
meropenem 2019-10- No 500mg 500 mg, IV Univers (MERREM) 11-11 Piggyback, ity of 500 mg in 09:00: 18:38 Administer [place] NaCl 0.9% 00 :19 over 60 Medical (NS) 100 mL Minutes, Bran ch MINI-BAG Q24H ABX, First dose on 09/11/20 at 0300, Until Discontinu ed, MARIELA
Re stricted use approved by: BRIAN 8TH FLOOR
R randy for Anti-Infec tive: Empiric Therapy for Suspected Infection< br>Empiric Therapy Site: Blood
D uration of therapy: 7 days vancomycin 2019-10- No 15mg/kg 1,000 mg Univers (VANCOCIN) 11-11 (rounded ity of 1,000 mg in 09:00: 10:13 from 937.5 [place] NaCl 0.9% 00 :00 mg = 15 Medical (NS) 250 mL mg/kg Branch VIAL-MATE ?62.5 kg), IV IV piggyback Piggyback, ONCE NOW, 1 dose, [place] 09/11/20 at 0300, 250 mL
Reas on for Anti-Infec tive: Empiric Therapy for Suspected Infection< br>Empiric Therapy Site: Blood
D uration of therapy: 72 hours sodium 2019-10- No IV Univers bicarbonate 11-11 Infusion, it y of 150 mEq in 09:00: 21:47 CONTINUOUS [place] D5W 1,000 00 :55 , Starting Medi lyssa mL IV Sun Branch Solution 09/11/20 at 0300, Until 09/11/20 at 1547, 1,000 mL, at 150 mL/hr insulin 2019-10- No 5U 5 Units, Unive rs regular 11-11 IV Push, ity of human 09:00: 07:57 ONCE, 1 [place] (HUMULIN R) 00 :00 dose, [place] Med ical injection 5 09/11/20 Bran ch Units at 0300, Routine dextrose 2019-10- No 250mL 250 mL, IV U nivers 10% (D10W) 11-11 Infusion, ity of bolus 09:00: 07:53 ONCE, [facility] infusion 00 :00 09/11/20 Medical 250 mL at 0300, Branch For 1 dose
De xtrose 10% 250 mL bag contains:& nbsp;10 gm = 100 mL 20 gm = 200 mL 25 gm = 250 mL (whole bag) The maximum rate at which dextrose can be infused without producing glycosuria is 0.5 g/kg/hour. BUD: If wrapper is open bag is good for 30 days at room temperatur e. <b r> sodium 2019-10- No 100meq 100 mEq, Univ ers bicarbonate 11-11 Slow IV ity of 8.4 % (1 08:03: 08:15 Push, [place] mEq/mL) 00 :00 ONCE, 1 Medical injection dose, [place] Branc h 100 mEq 09/11/20 at 0215, MARIELA sodium 2019-10- No 50meq 50 mEq, [facility] s bicarbonate 11-11 Slow IV ity of 1 mEq/mL 07:48: 07:53 Push, [place] (8.4 %) 00 :00 ONCE, 1 Medical injection dose, [place] Branc h 50 mEq 09/11/20 at 0200, Routine cefTRIAXone 2019-10- No 1000mg 1,000 mg, Univers (ROCEPHIN) 11-11 IV ity of 1,000 mg in 03:45: 03:16 Piggyback, [place] NaCl 0.9% 00 :00 ONCE, 1 Medical (NS) 50 mL dose, Sat Bran ch MINI-BAG 09/10/20 at 2145, 50 mL
Reas on for Anti-Infec tive: Empiric Non-Surgic al Prophylaxi s
Durat ion of therapy: 72 hours ondansetron 2019-10- No 4mg 4 mg, Slow Univers (ZOFRAN 11-11 IV Push, ity of (PF)) 03:32: 03:33 ONCE, 1 [place] injection 4 00 :00 dose, Sat Med ical mg 09/10/20 Branch at 2145, MARIELA NaCl 0.9% 2019-10- No 30mL/kg at 999 Un matti (NS) bolus 11-11 mL/hr, ity of infusion 03:00: 05:08 1,863 mL [place] 1,863 mL 00 :00 (30 mL/kg Medica l ?62.1 kg), Branch IV Piggyback, ONCE, 1 dose, 09/10/20 at 2100, STAT Immunizations Ordered Filled Immunization Date Status Comments [facility] Immunization Name Name SARS-COV-2 COVID-19 2020-12-26 Completed Unive rsity of PFIZER VACCINE 00:00:00 [facility] SARS-COV-2 COVID-19 2020-12-26 Completed Unive rsity of PFIZER VACCINE 00:00:00 [facility] SARS-COV-2 COVID-19 2020-12-26 Completed Unive rsity of PFIZER VACCINE 00:00:00 [facility] SARS-COV-2 COVID-19 2020-12-26 Completed Unive rsity of PFIZER VACCINE 00:00:00 [facility] SARS-COV-2 COVID-19 2020-12-26 Completed Unive rsity of PFIZER VACCINE 00:00:00 [facility] SARS-COV-2 COVID-19 2020-12-26 Completed Unive rsity of PFIZER VACCINE 00:00:00 [facility] SARS-COV-2 COVID-19 2020-12-26 Completed Unive rsity of PFIZER VACCINE 00:00:00 [facility] SARS-COV-2 COVID-19 2020-12-26 Completed Unive rsity of PFIZER VACCINE 00:00:00 [facility] SARS-COV-2 COVID-19 2020-12-05 Completed Unive rsity of PFIZER VACCINE 00:00:00 [facility] SARS-COV-2 COVID-19 2020-12-05 Completed Unive rsity of PFIZER VACCINE 00:00:00 [facility] SARS-COV-2 COVID-19 2020-12-05 Completed Unive rsity of PFIZER VACCINE 00:00:00 [facility] SARS-COV-2 COVID-19 2020-12-05 Completed Unive rsity of PFIZER VACCINE 00:00:00 [facility] SARS-COV-2 COVID-19 2020-12-05 Completed Unive rsity of PFIZER VACCINE 00:00:00 [facility] SARS-COV-2 COVID-19 2020-12-05 Completed Unive rsity of PFIZER VACCINE 00:00:00 [facility] SARS-COV-2 COVID-19 2020-12-05 Completed Unive rsity of PFIZER VACCINE 00:00:00 [facility] SARS-COV-2 COVID-19 2020-12-05 Completed Unive rsity of PFIZER VACCINE 00:00:00 [facility] Vital Signs Vital Name Observation Time Observation Value Comments Source Systolic blood 2022-03-03 07:33:00 135 mm[Hg] Univer sity of pressure [facility] Diastolic blood 2022-03-03 07:33:00 76 mm[Hg] Unive rsity of pressure [facility] Heart rate 2022-03-03 07:33:00 63 /min [facility] Body temperature 2022-03-03 07:33:00 36.28 Faiza [facility] [place] [facility] Respiratory rate 2022-03-03 07:33:00 18 /min [facility] [place] [facility] [place] [facility] Oxygen saturation in 2022-03-03 07:33:00 98 /min [facility] Arterial blood by [facility] Pulse oximetry [facility] Body height 2022-03-02 19:45:00 162.6 cm [facility] Body weight 2022-03-02 19:45:00 64.864 kg [facility] BMI 2022-03-02 19:45:00 24.55 kg/m2 [facility] Systolic blood 2021-08-04 20:43:00 122 mm[Hg] Univer sity of pressure [facility] Diastolic blood 2021-08-04 20:43:00 68 mm[Hg] Unive rsity of pressure [facility] Heart rate 2021-08-04 20:43:00 81 /min [facility] [place] [facility] Body temperature 2021-08-04 20:43:00 36.22 Faiza [facility] [place] [facility] Respiratory rate 2021-08-04 20:43:00 16 /min [facility] [place] [facility] Oxygen saturation in 2021-08-04 20:43:00 98 /min [facility] of Arterial blood by [facility] Pulse oximetry Branch Body height 2021-08-03 21:57:00 162.6 cm [facility] [place] [facility] Body weight 2021-08-03 21:57:00 57.97 kg [facility] [place] [facility] BMI 2021-08-03 21:57:00 21.94 kg/m2 [facility] [place] [facility] Systolic blood 2021-03-04 19:41:00 151 mm[Hg] Univer sity of pressure [place] [facility] Diastolic blood 2021-03-04 19:41:00 95 mm[Hg] [facility] Heart rate 2021-03-04 19:41:00 76 /min [facility] Body temperature 2021-03-04 19:41:00 37 [facility] Respiratory rate 2021-03-04 19:41:00 18 /min [facility] Body weight 2021-03-04 19:41:00 61.236 kg [facility] BMI 2021-03-04 19:41:00 21.79 kg/m2 [facility] Oxygen saturation in 2021-03-04 19:41:00 99 /min [facility] Arterial blood by [facility] Pulse oximetry Branch Systolic blood 2020-09-17 17:47:00 123 mm[Hg] Univer sity of pressure [facility] Diastolic blood 2020-09-17 17:47:00 79 mm[Hg] Unive rsity of pressure [facility] Heart rate 2020-09-17 17:47:00 75 /min [facility] [place] [facility] Body temperature 2020-09-17 17:47:00 36.78 Faiza Univ ers[facility] [place] [facility] Respiratory rate 2020-09-17 17:47:00 18 /min Univ [facility] Oxygen saturation in 2020-09-17 17:47:00 97 /min University of Arterial blood by [facility] Pulse oximetry Branch Body weight 2020-09-17 10:12:00 59.467 kg bedscale [facility] BMI 2020-09-17 10:12:00 21.16 kg/m2 [facility] Body height 2020-09-15 13:48:00 167.6 cm [facility] Procedures Procedure Date / Time Performing Clinician Source Performed [id number] 2022-03-05 00:00:[address] [facility] [id number] 2022-03-05 00:00:[address] [facility] [id number] 2022-03-05 00:00:[address] [facility] TRANSTHORACIC ECHO (TTE) 2022-03-02 19:45:29 Laney Owen [facility] [place] MAGNESIUM 2022-03-02 09:20:00 [facility] COMP. METABOLIC PANEL 2022-03-02 09:20:00 [facility] ([id number]) [facility] CBC WITH DIFF 2022-03-02 09:20:00 [facility] TROPONIN I 2022-03-01 09:08:00 Dinesh Corcoran [facility] BASIC METABOLIC PANEL (NA, 2022-03-01 09:08:00 Nando Matthews [facility] K, CL, CO2, GLUCOSE, BUN, Medica l Branch CREATININE, CA) CBC WITH DIFF 2022-03-01 09:08:00 Kristan [facility] TROPONIN I 2022-02-28 15:34:00 Dany [facility] TROPONIN I 2022-02-28 09:50:00 [facility] 2022-02-28 04:03:00 Walt Estes [facility] XR CHEST 1 VW 2022-02-28 03:02:00 Walt Estes [facility] URINE CULTURE 2022-02-28 02:51:00 Walt Estes [facility] LACTIC ACID WHOLE BLOOD 2022-02-28 02:49:00 Walt Estes [facility] BLOOD CULTURE SCREEN 2022-02-28 02:47:00 Walt Estes [facility] LIPASE 2022-02-28 02:47:00 Walt Estes [facility] TROPONIN I 2022-02-28 02:47:00 Walt Estes [facility] COMP. METABOLIC PANEL 2022-02-28 02:47:00 Walt Estes [facility] ([id number]) [facility] CBC WITH DIFF 2022-02-28 02:47:00 Walt Estes [facility] PROTHROMBIN TIME / INR 2022-02-28 02:47:00 Walt [facility]es [facility] ACTIVATED PARTIAL THRMPLAS 2022-02-28 02:47:00 Walt Estes [facility] N-TERMINAL PRO-BNP 2022-02-28 02:47:00 Walt Estes [facility] BLOOD CULTURE SCREEN 2022-02-28 02:46:00 Walt Estes [facility] HB ECG ROUTINE & RHYTHM 2022-02-28 02:32:25 Walt Estes [facility] AUTHORIZATION FOR RELEASE 2021-09-04 06:01:00 Doctor Unassigned, [facility] [place] [facility] CAROTID DUPLEX BILATERAL - 2021-08-04 16:17:00 Evelyn Saha [facility] BY VASCULAR LAB [facility] TRANSTHORACIC ECHO (TTE) 2021-08-04 15:42:00 Palak Alvares [facility] COMPLETE Medical Branch MAGNESIUM 2021-08-04 09:07:00 Palak Alvares [facility] TROPONIN I 2021-08-04 09:07:00 Evelyn Saha [facility] BASIC METABOLIC PANEL (NA, 2021-08-04 09:07:00 Palak [facility] K, CL, CO2, GLUCOSE, BUN, Medica l Branch CREATININE, CA) CBC WITH DIFF 2021-08-04 09:07:00 Palak Alvares [facility] N-TERMINAL PRO-BNP 2021-08-04 09:07:00 Palak Alvares [facility] LACTIC ACID WHOLE BLOOD 2021-08-04 02:41:00 Walt Estes [facility] TROPONIN I 2021-08-04 01:40:00 Giorgio [facility] CT HEAD WO CONTRAST 2021-08-03 18:56:10 Walt Estes [facility] XR CHEST 1 VW 2021-08-03 18:51:29 Walt Estes [facility] CONSENT/REFUSAL FOR 2021-08-03 18:21:08 Doctor Unassigned, [facility] DIAGNOSIS AND TREATMENT [place] [facility] URINE CULTURE 2021-08-03 18:21:00 Walt Estes [facility] URINALYSIS 2021-08-03 18:20:00 Walt Estes [facility] URINE DRUG (IMMUNOASSAY) - 2021-08-03 18:20:00 [facility] COMPREHENSIVE DRUG SCREEN Medica l [facility] W/O REFLEX BLOOD CULTURE SCREEN 2021-08-03 18:19:00 Walt Estes [facility] TROPONIN I 2021-08-03 18:19:00 Walt Estes [facility] COMP. METABOLIC PANEL 2021-08-03 18:19:00 Walt Estes [facility] ([id number]) Medical Branch ETHANOL 2021-08-03 18:19:00 Walt Estes [facility] CBC WITH DIFF 2021-08-03 18:19:00 Walt Estes [facility] PROTHROMBIN TIME / INR 2021-08-03 18:19:00 [facility]es [facility] ACTIVATED PARTIAL THRMPLAS 2021-08-03 18:19:00 Walt Estes [facility] N-TERMINAL PRO-BNP 2021-08-03 18:19:00 Walt Estes [facility] LACTIC ACID WHOLE BLOOD 2021-08-03 18:19:00 Walt Estes [facility] COVID-19 (ID NOW RAPID 2021-08-03 18:19:00 Walt Estes [facility] TESTING) Medical Branch LAB ONLY COVID 2021-08-03 18:19:00 Walt Estes [facility] INTERPRETATION [facility] - OTHER 2021-03-01 05:01:00 Doctor Unassgerald [facility] 2021-02-06 05:01:00 Doctor Unasulma [facility] 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 POCT GLUCOSE (AUTOMATED) 2020-09-17 16:16:00 Nayely [facility] POCT GLUCOSE (AUTOMATED) 2020-09-17 03:01:00 Nayely [facility] POCT GLUCOSE (AUTOMATED) 2020-09-16 23:25:00 Nayely [facility] POCT GLUCOSE (AUTOMATED) 2020-09-16 18:53:00 Nayely [facility] POCT GLUCOSE (AUTOMATED) 2020-09-16 15:17:00 Nayely [facility] HB ECG ROUTINE & RHYTHM 2020-09-16 14:14:[address] [facility] PHOSPHORUS 2020-09-16 12:11:00 Anna, [facility] MAGNESIUM 2020-09-16 12:11:00 Shoshana [facility] BASIC METABOLIC PANEL (NA, 2020-09-16 12:11:00 Harmeet Anna [facility] K, CL, CO2, GLUCOSE, BUN, Medica l Branch CREATININE, CA) CBC WITH DIFF 2020-09-16 12:11:00 Shoshana [facility] ACTIVATED PARTIAL THRMPLAS 2020-09-16 12:11:00 Dorys Das [facility] ACTIVATED PARTIAL THRMPLAS 2020-09-16 04:53:00 Dorys Das [facility] POCT GLUCOSE (AUTOMATED) 2020-09-16 03:47:00 Nayely [facility] ACTIVATED PARTIAL THRMPLAS 2020-09-15 21:50:00 Dorys Das [facility] POCT GLUCOSE (AUTOMATED) 2020-09-15 19:16:00 Maria R Adler [facility] CORONARY ANGIOGRAPHY 2020-09-15 17:13:45 Doctor Unassigned, [facility] [place] [facility] PHOSPHORUS 2020-09-15 09:29:00 Shoshana [facility] MAGNESIUM 2020-09-15 09:29:00 Shoshana [facility] BASIC METABOLIC PANEL (NA, 2020-09-15 09:29:00 Shoshana, [facility] K, CL, CO2, GLUCOSE, BUN, Medica l Branch CREATININE, CA) CBC WITH DIFF 2020-09-15 09:29:00 Shoshana [facility] ACTIVATED PARTIAL THRMPLAS 2020-09-15 09:29:00 Dorys Das [facility] ACTIVATED PARTIAL THRMPLAS 2020-09-15 02:24:00 Dorys Das [facility] POCT GLUCOSE (AUTOMATED) 2020-09-15 02:24:00 Darrel Johnson [facility] POCT GLUCOSE (AUTOMATED) 2020-09-14 22:53:00 Darrel Johnson [facility] ACTIVATED PARTIAL THRMPLAS 2020-09-14 19:15:00 Dorys Das [facility] POCT GLUCOSE (AUTOMATED) 2020-09-14 18:13:00 Darrel Johnson [facility] ECHO ROUTINE W/DOPPLER 2020-09-14 16:56:06 Christina Infante [facility] EKG-12 LEAD 2020-09-14 15:15:58 Nayely [facility] POCT GLUCOSE (AUTOMATED) 2020-09-14 15:03:00 Darrel Johnson [facility] ACTIVATED PARTIAL THRMPLAS 2020-09-14 11:36:00 [facility] PHOS[facility]US 2020-09-14 10:06:00 Shoshana [facility] MAGNESIUM 2020-09-14 10:06:00 Shoshana [facility] TROPONIN I 2020-09-14 10:06:00 Marquez, [facility] BASIC METABOLIC PANEL (NA, 2020-09-14 10:06:00 Harmeet Anna [facility] K, CL, CO2, GLUCOSE, BUN, Medica l Branch CREATININE, CA) INTACT PTH CALCIUM GROUP 2020-09-14 10:06:00 [facility] CBC WITH DIFF 2020-09-14 10:06:00 Shoshana [facility] VITAMIN D, 25-OH 2020-09-14 10:06:00 [facility] TROPONIN I 2020-09-14 02:52:00 Marquez [facility] BASIC METABOLIC PANEL (NA, 2020-09-14 02:52:00 Dread [facility] K, CL, CO2, GLUCOSE, BUN, [facility] CREATININE, CA) CREATININE, URINE RANDOM 2020-09-14 02:52:00 [facility] TOTAL PROTEIN, URINE 2020-09-14 02:52:00 [facility] POCT GLUCOSE (AUTOMATED) 2020-09-13 22:33:00 Darrel Johnson [facility] HB ECG ROUTINE & RHYTHM 2020-09-13 21:47:12 Kamrar, [facility] POCT GLUCOSE (AUTOMATED) 2020-09-13 18:03:00 Darrel Johnson [facility] HB ECG ROUTINE & RHYTHM 2020-09-13 17:28:21 Arelis, [facility] HB ECG ROUTINE & RHYTHM 2020-09-13 16:59:49 Arelis, [facility] PHOSPHORUS 2020-09-13 11:30:00 Shoshana [facility] MAGNESIUM 2020-09-13 11:30:00 Shoshana [facility] FREE T4 2020-09-13 11:30:00 Kamrar, [facility] THYROID STIMULATING 2020-09-13 11:30:00 Arelis, Christina [facility] BASIC METABOLIC PANEL (NA, 2020-09-13 11:30:00 Harmeet [facility] K, CL, CO2, GLUCOSE, BUN, Medica l Branch CREATININE, CA) VANCOMYCIN RANDOM LEVEL 2020-09-13 11:30:00 Harmeet Anna [facility] CBC WITH DIFF 2020-09-13 11:30:00 Shoshana [facility] POCT GLUCOSE (AUTOMATED) 2020-09-13 02:35:00 Darrel Johnson [facility] POCT GLUCOSE (AUTOMATED) 2020-09-12 22:35:00 Darrel Johnson [facility] BASIC METABOLIC PANEL (NA, 2020-09-12 20:12:00 [facility] K, CL, CO2, GLUCOSE, BUN, Medica l Branch CREATININE, CA) AC PANEL 20 + LACTIC ACID 2020-09-12 18:35:00 Christina [facility] ([facility]OMATED) 2020-09-12 17:59:00 Darrel Johnson [facility] EKG-12 LEAD 2020-09-12 15:23:11 Darrel Johnson [facility] POCT GLUCOSE (AUTOMATED) 2020-09-12 13:56:00 Darrel Johnson [facility] AC PANEL 20 + LACTIC ACID 2020-09-12 12:23:00 Christina [facility] CBC WITH DIFF 2020-09-12 09:39:00 Shoshana [facility] PHOSPHORUS 2020-09-12 08:01:00 Shoshana [facility] MAGNESIUM 2020-09-12 08:01:00 Shoshana [facility] BASIC METABOLIC PANEL (NA, 2020-09-12 08:01:00 Harmeet [facility] K, CL, CO2, GLUCOSE, BUN, Medica l Branch CREATININE, CA) VANCOMYCIN RANDOM LEVEL 2020-09-12 08:01:00 Navya [facility] AC PANEL 20 + LACTIC ACID 2020-09-12 08:01:00 Christina [facility] POCT GLUCOSE (AUTOMATED) 2020-09-12 04:52:00 Darrel Johnson [facility] POCT GLUCOSE (AUTOMATED) 2020-09-12 03:57:00 Darrel Johnson [facility] POCT GLUCOSE (AUTOMATED) 2020-09-12 03:14:00 Darrel Johnson [facility] AC PANEL 20 + LACTIC ACID 2020-09-12 02:47:00 Christina Infante [facility] AC PANEL 20 + LACTIC ACID 2020-09-11 23:04:00 [facility]OUTINE & RHYTHM 2020-09-11 20:22:51 [facility] 2020-09-11 19:07:00 [facility] MAGN[facility]UM 2020-09-11 19:07:00 [facility] BASIC METABOLIC PANEL (NA, 2020-09-11 19:07:00 Harmeet Anna [facility] K, CL, CO2, GLUCOSE, BUN, Medica l Branch CREATININE, CA) AC PANEL 20 + LACTIC ACID 2020-09-11 19:07:00 Navya [facility] POCT GLUCOSE (AUTOMATED) 2020-09-11 18:49:00 Darrel Johnson [facility] US RETROPERITONEAL LIMITED 2020-09-11 16:06:00 Navya U [facility] AC PANEL 20 + LACTIC ACID 2020-09-11 14:17:00 Christina [facility] AC PANEL 20 + LACTIC ACID 2020-09-11 11:54:00 [facility]Sonny [facility] AC PANEL 20 + LACTIC ACID 2020-09-11 09:39:00 GrierSonny [facility] XR CHEST 1 VW 2020-09-11 09:20:00 Joseph Aguirre [facility] BLOOD CULTURE SCREEN 2020-09-11 08:08:00 [facility] PROT[facility] / INR 2020-09-11 08:08:00 [facility]itt [facility] D-DIMER 2020-09-11 08:08:00 [facility] ACTIVATED PARTIAL THRMPLAS 2020-09-11 08:08:00 [facility] FIBRINOGEN 2020-09-11 08:08:00 [facility] BLOOD CULTURE SCREEN 2020-09-11 08:05:00 [facility] CREATININE, URINE RANDOM 2020-09-11 08:05:00 Navya [facility] UREA NITROGEN, URINE 2020-09-11 08:05:00 [facility] SODIUM, URINE RANDOM 2020-09-11 08:05:00 [facility] AC PANEL 20 + LACTIC ACID 2020-09-11 08:00:00 GrierBritt [facility] POCT GLUCOSE (AUTOMATED) 2020-09-11 07:47:00 Darrel Johnson [facility] EKG-12 LEAD 2020-09-11 07:34:24 Darrel Johnson [facility] ABG+COOX+NA+K+GLU+CA2+ 2020-09-11 05:13:00 Zaheer Bautista [facility] IRON PANEL 2020-09-11 05:08:00 Zaheer Bautista [facility] SALICYLATE 2020-09-11 05:08:00 Zaheer Bautista [facility] ETHANOL 2020-09-11 05:08:00 Singer [facility] METHANOL 2020-09-11 05:08:00 Zaheer Bautista [facility] ETHYLENE GLYCOL 2020-09-11 05:08:00 Singer [facility] LACTIC ACID WHOLE BLOOD 2020-09-11 04:34:00 Zaheer Bautista [facility] HB ECG ROUTINE & RHYTHM 2020-09-11 03:51:54 Singer [facility] STRIP [facility] ABDOMEN PELVIS WO 2020-09-11 03:30:[address] [facility] CONTRAST [facility] HEAD WO CONTRAST 2020-09-11 03:29:43 Zaheer Bautista [facility] LACTIC ACID WHOLE BLOOD 2020-09-11 02:40:00 Singer [facility] BLOOD CULTURE SCREEN 2020-09-11 02:19:00 Singer Zaheer [facility] PHOSPHORUS 2020-09-11 02:17:00 Shoshana [facility] TROPONIN I 2020-09-11 02:17:00 Singer [facility] COMP. METABOLIC PANEL 2020-09-11 02:17:00 Singer [facility] ([id number] Medical Branch URINALYSIS 2020-09-11 02:17:00 Singer [facility] URINE CULTURE 2020-09-11 02:17:00 Singer [facility] COVID-19 (ID NOW RAPID 2020-09-11 02:17:00 Singer [facility] TESTING) Medical Branch LAB ONLY COVID 2020-09-11 02:17:00 Singer [facility] INTERPRETATION [facility] CBC WITH DIFF 2020-09-11 02:16:00 Singer [facility] GLYCOSYLATED HEMOGLOBIN 2020-09-11 02:16:00 Shoshana [facility] (A1C) Medical Branch LACTIC ACID WHOLE BLOOD 2020-09-11 02:15:00 Singer [facility] XR CHEST 1 VW 2020-09-11 02:09:22 Singer [facility] EMERGENCY SERVICES 2020-09-10 06:01:00 Doctor Unassigned, [facility] AGREEMENTS AND [place] [facility] AUTHORIZATIONS Encounters Start End Encounter Admission Attending Care Care Encounter Source Date/Time Date/Time Type Type Clinicians Facility Department ID 2019-11-02 Inpatient Jessica Field [facility] MAMMO [id number] 09:54:00 Jessica Field [facility] 2022-03-03 2022-03-06 Inpatient MILAGRO FRASER ADMI [id number] [facility] 03:52:00 13:27:00 DINESH 19 [facility] 2022-03-03 2022-03-06 Inpatient MILAGRO FRASER ADMI [id number] [facility] 03:52:00 13:27:00 DINESH [id number] [facility] 2022-03-05 2022-03-05 Transition GIGI Morales [id number] Univers 00:00:00 00:00:00 of Care Cholo SERRATO [id number] ity of [id number] [id number] [facility] 403 Branch 2022-02-27 2022-03-03 Inpatient X JEWELL [facility] [id number] Univers 21:26:00 02:41:00 DINESH ity of [facility] 2022-02-27 2022-03-03 [facility] Walt Estes [facility] [id number] Univers 21:26:00 02:41:00 Encounter Nando Matthews [id number] ity of [place] [id number] [facility] [id number] [facility] lyssa 081 Branch 2021-10-26 2021-10-26 Outpatient MAYE, [facility] [id number] [place] 00:00:00 00:00:00 GORD[address] 2021-10-26 2021-10-26 Outpatient [facility] [id number] [place] 00:00:00 00:00:[address] 2021-09-04 2021-09-04 Orders Doctor TONEY [id number] [facility] 00:00:00 00:00:00 Only Unassigned, SAMANTHA [id number] [facility] [id number] Jere as [id number] Medi lyssa 009 Branch 2021-08-07 2021-08-07 Transition Gigi Morales [id number] Univers 00:00:00 00:00:00 of Care Cholo Serrato [id number] it[place] of [id number] [id number] [facility] 403 Branch 2021-08-03 2021-08-04 Emergency FranklynWalt [facility] 1.2.840. [id number] Univers 13:13:00 18:15:00 Palak Alvares [id number] ity of [place] [id number] [facility] [id number] [facility] 081 [facility] 2021-08-03 2021-08-04 Outpatient X GIORGIO [facility] KENDAL [id number] Univers 13:13:00 18:15:00 [facility] 2021-06-12 2021-06-12 Outpatient SICKLER, [facility] [id number] [place] 00:00:00 00:00:00 LUKASZ 158 Method i 2021-05-22 2021-05-22 Outpatient SICKLER, [facility] 021 [id number] [place] 00:00:00 00:00:00 LUKASZ 979 Method i 2021-04-20 2021-04-20 Outpatient FARIDAR, [facility] [id number] [place] 00:00:00 00:00:00 GORDY 676 Method i 2021-04-20 2021-04-20 Outpatient [facility] [id number] [place] 00:00:00 00:00:00 549 Method i 2021-03-04 2021-03-04 [facility] [id number] Univers 14:43:00 15:15:00 Jyothi Knutson [id number] ity of [place] [id number] [facility] [id number] [facility] 084 [facility] 2021-03-04 2021-03-04 Emergency X [facility] ERT [id number] Univers 14:43:00 14:43:00 JYOTHI carter [facility] 2021-03-03 2021-03-03 Outpatient ZITA, [facility] [id number] 473 [place] 00:00:00 00:00:00 ALDEN 073 Method i 2021-03-01 2021-03-01 Orders Doctor FENG [id number] [facility] 00:00:00 00:00:00 Only Unassigned, SAMANTHA [id number] ity [facility] [id number] Jere as [id number] [address] 2021-02-22 2021-02-22 Outpatient ZITA, [facility] [id number] [place] 00:00:00 00:00:00 ALDEN 958 Method i 2021-02-17 2021-02-17 Outpatient ZITA, [facility] [id number] [place] 00:00:00 00:00:00 ALDEN 672 Method i 2021-02-17 2021-02-17 Outpatient ZITA [facility] [id number] 509 [place] 00:00:00 00:00:00 ALDEN 673 Method i 2021-02-08 2021-02-08 Outpatient ZITA, [facility] [id number] 374 [place] 00:00:00 00:00:00 ALDEN 888 Method i 2021-02-06 2021-02-06 Orders Doctor FENG [id number] [facility] 00:00:00 00:00:00 Only Unassigned, SAMANTHA [id number] ity [facility] [id number] Jere as [id number] [address] 2020-12-21 2020-12-21 Outpatient TORINIDAR, [facility] [id number] [place] 00:00:00 00:00:00 GORDY 012 Method i 2020-12-21 2020-12-21 Outpatient TORINIDAR, [facility] [id number] [place] 00:00:00 00:00:00 GORDY 183 Method i 2020-12-21 2020-12-21 Outpatient TORINIDAR, [facility] [id number] [place] 00:00:00 00:00:00 GORDY 693 Method i 2020-12-152020-12-15 Outpatient TARA, [facility] [id number] 447 [place] 00:00:00 00:00:00 MADHURI [address] 2020-12-15 2020-12-15 Outpatient [facility] [id number] 353 [place] 00:00:00 00:00:[address] 2020-09-25 2020-09-25 Orders Doctor FENG 1.2.840.114 [id number] Univers 00:00:00 00:00:00 Only Unassigned, SAMANTHA [id number] [facility] [id number] Jere as [phone] [facility] 009 Branch 2020-09-19 2020-09-19 Transition Gigi Brito 1.2.840.114 [id number] Univers 00:00:00 00:00:00 of Care Madelyn Medinay [id number] i [id number] [id number] [facility] 403 Branch 2020-09-19 2020-09-19 Transition Gigi Rangel 1.2.840.114 [id number] Univers 00:00:00 00:00:00 of Care Alsysa L Serrato [id number] [id number] [id number] [facility] 403 Branch 2020-09-10 2020-09-17 [facility] Zaheer Bautista 1.2.840.1 [id number] Univers 19:40:00 18:12:00 Encounter Darrel Johnson [id number]. 10 ity of [facility] [id number] [place] Serina Murray [id number] Medical 3 Branch 2020-09-10 2020-09-10 Emergency X SINGER [facility] ERT [id number] Univers 19:40:00 19:40:00 ZAHEER carter of [facility] 2017-09-10 2017-09-10 Outpatient C [facility] [id number] 09:15:00 09:15:00 [facility] 2017 2017 Outpatient C [facility] [id number] 14:37:00 14:37:00 [facility] 2017-07-24 2017-07-24 Outpatient C [facility] [id number] 12:19:00 12:19:00 [facility] Results Test Description Test Time Test Comments Results Result Comments Source COAGULATION TIME ACTIVATED 2022-03-05 21:50:00 Test Item Value Reference Range Interpretation Comme nts COAGULATION TIME ACTIVATED (test code = ACT) 299 sec 250-300 N ACTIVATED CLOTTING TIME RESULT (seconds) = 299BASIC METABOLIC [id number] 10:15:00 Test Item Value Reference Range Interpretation Comments SODIUM (test code = NA) 141 mmol/l 134.0-147.0 N POTASSIUM (test code = K) 3.7 mmol/L 3.6-5.2 N CHLORIDE (test code = CL) 107 mmol/l 98.0-107.0 N CARBON DIOXIDE (test code = CO2) 27.7 mmol/l 21.0-33.0 N ANION GAP (test code = GAP) 10.0 0-20 N GLUCOSE (test code = GLU) 119 mg/dl 70.0-110.0 H BLOOD UREA NITROGEN (test code = 16 mg/dl 7.0-18.0 N BUN) CREATININE (test code = CREAT) 0.78 mg/dL 0.60-1.30 N GFR NON BLACK (test code = 75 mL/min 70-80 N GFRNONBLACK) GFR BLACK (test code = GFRBLACK) 91 mL/min 85-97 N CALCIUM (test code = CA) 8.5 mg/dl 8.0-10.5 N FAMILY DIDNT WANT HER WOKEN UP SPOKE TO SUSANNE IRWIN.03/05/22 0707.CBC W/AUTO [id number] 09:50:00 Test Item Value Reference Range Interpretation Comments WHITE BLOOD CELL (test code = 4.8 K/mm3 4.5-11.0 N WBC) RED BLOOD CELL (test code = 4.15 M/mm3 3.80-5.20 N RBC) HEMOGLOBIN (test code = HGB) 12.9 gm/dL 12.0-16.0 N HEMATOCRIT (test code = HCT) 38.9 % 36.0-48.0 N MEAN CELL VOLUME (test code = 93.7 UM3 82.0-99.0 N MCV) MEAN CELL HGB (test code = MCH) 31.1 UUG 25.5-32.5 N MEAN CELL HGB CONCETRATION 33.2 gm/dL 29.0-35.5 N (test code = MCHC) RED CELL DISTRIBUTION WIDTH 12.5 % 11.5-15.0 N (test code = RDW) RED CELL DISTRIBUTION WIDTH SD 42.9 fL 34.8-50.2 N (test code = RDW-SD) PLATELET COUNT (test code = 179 K/mm3 150-400 N PLT) MEAN PLATELET VOLUME (test code 11.7 fl 7.4-10.4 H = MPV) NEUTROPHIL % (test code = NT%) 54.3 % 49.0-76.0 N IMMATURE GRANULOCYTE % (test 0.2 % 0.0-0.4 N code = IG%) LYMPHOCYTE % (test code = LY%) 31.7 % 23.0-38.0 N MONOCYTE % (test code = MO%) 9.4 % 1.0-10.0 N EOSINOPHIL % (test code = EO%) 4.0 % 1.0-5.0 N BASOPHIL % (test code = BA%) 0.4 % 0.0-1.0 N NUCLEATED RBC % (test code = 0.0 % 0.0-0.1 N NRBC%) NEUTROPHIL # (test code = NT#) 2.6 K/mm3 2.4-6.3 N IMMATURE GRANULOCYTE # (test 0.01 x10 3/uL 0.00-0.07 N code = IG#) LYMPHOCYTE # (test code = LY#) 1.5 K/mm3 1.2-4.0 N MONOCYTE # (test code = MO#) 0.5 K/mm3 0.0-0.6 N EOSINOPHIL # (test code = EO#) 0.2 K/MM3 0.0-0.7 N BASOPHIL # (test code = BA#) 0.0 K/mm3 0.0-0.2 N NUCLEATED RBC # (test code = 0.00 X10 3uL 0.00-0.01 N NRBC#) DIDNT WANT HER WOKEN UP SPOKE TO SUSANNE PEREZKN03/05/22 0708. [id number] 17:04:00 Test Item Value Reference Range Interpretation Comments TROPONIN-I (test <0.02 NG/ML 0.00-0.06 N REFERENCE R PERNELL code = TROPI) TROPONIN I HEA LTHY INDIVIDUALS: < 0.06 ng/mL R/O ISCHE STEVE: 0.07 - 0.60 ng/ mL CUT-OFF RANGE F OR AMI: 0.60 - 1.5 ng/m L BASIC METABOLIC [id number] 13:14:00 Test Item Value Reference Range Interpretation Comments SODIUM (test code = NA) 141 mmol/l 134.0-147.0 N POTASSIUM (test code = K) 3.8 mmol/L 3.6-5.2 N CHLORIDE (test code = CL) 105 mmol/l 98.0-107.0 N CARBON DIOXIDE (test code = CO2) 28.3 mmol/l 21.0-33.0 N ANION GAP (test code = GAP) 11.5 0-20 N GLUCOSE (test code = GLU) 192 mg/dl 70.0-110.0 H BLOOD UREA NITROGEN (test code = 16 mg/dl 7.0-18.0 N BUN) CREATININE (test code = CREAT) 0.84 mg/dL 0.60-1.30 N GFR NON BLACK (test code = 69 mL/min 70-80 L GFRNONBLACK) GFR BLACK (test code = GFRBLACK) 84 mL/min 85-97 L CALCIUM (test code = CA) 8.6 mg/dl 8.0-10.5 N [id number] 13:14:00 Test Item Value Reference Range Interpretation Comments TROPONIN-I (test 0.04 NG/ML 0.00-0.06 N REFERENCE R PERNELL TROPONIN code = TROPI) I HEALTHY DOE VIDUALS: <0.06 ng/mL R/O ISCHEMIA: 0.07 - 0.60 ng/mL CUT-OFF R PERNELL FOR AMI: 0.60 - 1. 5 ng/mL CBC W/AUTO [id number] 13:02:00 Test Item Value Reference Range Interpretation Comments WHITE BLOOD CELL (test code = 5.7 K/mm3 4.5-11.0 N WBC) RED BLOOD CELL (test code = 4.33 M/mm3 3.80-5.20 N RBC) HEMOGLOBIN (test code = HGB) 13.7 gm/dL 12.0-16.0 N HEMATOCRIT (test code = HCT) 41.6 % 36.0-48.0 N MEAN CELL VOLUME (test code = 96.1 UM3 82.0-99.0 N MCV) MEAN CELL HGB (test code = MCH) 31.6 UUG 25.5-32.5 N MEAN CELL HGB CONCETRATION 32.9 gm/dL 29.0-35.5 N (test code = MCHC) RED CELL DISTRIBUTION WIDTH 12.2 % 11.5-15.0 N (test code = RDW) RED CELL DISTRIBUTION WIDTH SD 43.6 fL 34.8-50.2 N (test code = RDW-SD) PLATELET COUNT (test code = 189 K/mm3 150-400 N PLT) MEAN PLATELET VOLUME (test code 11.4 fl 7.4-10.4 H = MPV) NEUTROPHIL % (test code = NT%) 57.9 % 49.0-76.0 N IMMATURE GRANULOCYTE % (test 0.2 % 0.0-0.4 N code = IG%) LYMPHOCYTE % (test code = LY%) 30.8 % 23.0-38.0 N MONOCYTE % (test code = MO%) 7.4 % 1.0-10.0 N EOSINOPHIL % (test code = EO%) 3.2 % 1.0-5.0 N BASOPHIL % (test code = BA%) 0.5 % 0.0-1.0 N NUCLEATED RBC % (test code = 0.0 % 0.0-0.1 N NRBC%) NEUTROPHIL # (test code = NT#) 3.3 K/mm3 2.4-6.3 N IMMATURE GRANULOCYTE # (test 0.01 x10 3/uL 0.00-0.07 N code = IG#) LYMPHOCYTE # (test code = LY#) 1.8 K/mm3 1.2-4.0 N MONOCYTE # (test code = MO#) 0.4 K/mm3 0.0-0.6 N EOSINOPHIL # (test code = EO#) 0.2 K/MM3 0.0-0.7 N BASOPHIL # (test code = BA#) 0.0 K/mm3 0.0-0.2 N NUCLEATED RBC # (test code = 0.00 X10 3uL 0.00-0.01 N NRBC#) Transthoracic echo (TTE)2022-03-02 21:15:33 Test Item Value Reference Range Interpretation Comments LVOT diameter (test code 1.90 cm = 9251275856) LVIDD (test code = 4.00 cm 6497301241) IVS (test code = 0.77 cm 6682694981) Interventricular Septum 0.77 cm Diastolic Thickness by 2D (test code = 1450585) LVPWD (test code = 0.97 cm 7895654827) PW (test code = 0.97 cm 0.6-1.6 4261872097) EF(Teich) (test code = 68.50 % 2551021205) LVIDS (test code = 2.50 cm 3434598445) FS (test code = 38 % 4873887775) EF - 2D (test code = 68.50 % 02829347) LA size (test code = 3.1 cm 7165105778) Ao root annulus (test 2.5 cm code = 4634030576) Ao root diam (test code = 2.50 cm 5344024980) Aortic root (test code = 2.5 cm 3824620178) TR Peak Teresa (test code = 267.1 cm/s 8147815425) Triscuspid Valve mmHg Regurgitation Peak Gradient (test code = 0728918558) E wave decelartion time 0.15 s (test code = 6293792758) MV Peak A Teresa (test code 93.2 cm/s = 4516532715) MV Peak E Teresa (test code 52.8 cm/s = 6851383179) E/A ratio (test code = ratio 5214877722) MV E/e' septal (test code 7.5 cm/s = 1783290094) Tapse (test code = 2.23 cm 0416779500) LVOT stroke volume (test 58.70 cm3 code = 5668235127) LVOT peak teresa (test code 97.0 cm/s = 5885479493) LVOT mn grad (test code = mmHg 7373061511) AV LVOT peak gradient mmHg (test code = 0737649230) LVOT peak VTI (test code 20.8 cm = 1664138652) LV V1 mean (test code = 68.70 cm/s 7560067076) Aortic valve mean 69.0 cm/s velocity (test code = 9021486862) Ao peak teresa (test code = 106.9 cm/s 9369731416) Ao VTI (test code = 18.9 cm 4090074298) AV area by cont VTI (test 3.1 cm2 code = 2299799136) AV area peak teresa (test 2.6 cm2 code = 0206880227) Ao max PG (test code = 4.60 mm[Hg] 6420889729) AV peak gradient (test mmHg code = 4616517238) AV valve area (test code 3.10 cm2 = 5249859134) AV mean gradient (test mmHg code = 9685239461) Radiology Study observation (narrative) (test code = 52614-2) MYNOR (test code = MYNOR) ?Left?Ventricle: Left ventricle size is normal. Normal wall thickness. Normal wall motion. Normal systolic function with a visually estimated EF of 55 - 60%. There is impaired relaxation. ?Tricuspid?Valve: Right ventricular systolic pressure is 30-35 mmHg. ?RA pressure is 0-5 mmHg. VitalsHeight Weight BSA (Calculated - sq m) BP Pulse 5' 4" (1.626 m) 143 lb (64.9 kg) 1.71 sq meters 120/60 [facility]. METABOLIC PANEL (73174)2022-03-02 11:19:12 Test Item Value Reference Range Interpretation Comments NA (test code = 140 mmol/L 135-145 6664161444) K (test code = 4.2 mmol/L 3.5-5.0 3486076427) CL (test code = 105 mmol/L 98-108 6463499297) CO2 TOTAL (test code = 29 mmol/L 23-31 4465989383) AGAP (test code = 2-16 2770096246) BUN (test code = 27 mg/dL 7-23 H 7771611133) GLUCOSE (test code = 139 mg/dL 70-110 H 5879746938) CREATININE (test code = 0.99 mg/dL 0.50-1.04 3955500060) TOTAL BILI (test code = 0.4 mg/dL 0.1-1.2 9792241304) CALCIUM (test code = 8.2 mg/dL 8.6-10.6 L 3283697295) T PROTEIN (test code = 5.9 g/dL 6.3-8.2 L 4162878843) ALBUMIN (test code = 3.1 g/dL 3.5-5.0 L 0193808999) ALK PHOS (test code = 84 U/L 34-122 7287695925) ALTv (test code = 16 U/L 5-35 1742-6) AST(SGOT) (test code = 26 U/L 13-40 3650482385) eGFR (test code = mL/min/1.73m2 4098794409) MYNOR (test code = MYNOR) Association of Glomerular Filtration Rate (GFR) and Staging of Kidney Disease* + --+ --+ ------+| GFR (mL/min/1.73 m2) ?| With Kidney Damage ?| ?Without Kidney Damage+ --------+ --------+ +| ?>90 ?| ?Stage one ?| ? Normal ?+ ---+ ---+ -------+| ?60-89 ?| ?Stage two ?| ? Decreased GFR ? + --+ --+ ------+| ?30-59 ?| ?Stage three ?| ? Stage three ? + --+ --+ ------+| ?15-29 ?| ?Stage four ? | ? Stage four ?+ ---+ ---+ -------+| ?<15 (or dialysis) ? ?| ?Stage five ? | ? Stage five ?+ ---+ ---+ -------+ *Each stage assumes the associated GFR level has been in effect for at least three months. ?Stages 1 to 5, with or without kidney disease, indicate chronic kidney disease. Notes: Determination of stages one and two (with eGFR >59mL/min/1.73 m2) requires estimation of kidney damage for at least three months as defined by structural or functional abnormalities of the kidney, manifested by either:Pathological abnormalities or Markers of kidney damage (including abnormalities in the composition of the blood or urine or abnormalities in imaging tests). Lab Interpretation Abnormal (test code = 25324-2) [facility]12 Test Item Value Reference Range Interpretation Comments MAGNESIUM (test code = 7419127811) 2.2 mg/dL 1.7-2.4 Lab Interpretation (test code = Normal 29830-6) [facility] WITH [id number] 10:30:06 Test Item Value Reference Range Interpretation Comments WBC (test code = See_Comment [Automated 6690-2) message] The sy stem which generated this result transmitted reference range : 4.30 - 11.10 10*3/?L. The reference range was not used to interpret this result as normal/abnormal . RBC (test code = See_Comment [Automated 789-8) message] The sy stem which generated this result transmitted reference range : 3.93 - 5.25 10*6/?L. The reference range was not used to interpret this result as normal/abnormal . HGB (test code = 13.1 g/dL 11.6-15.0 718-7) HCT (test code = 41.3 % 35.7-45.2 4544-3) MCV (test code = 96.9 fL 80.6-95.5 H 787-2) MCH (test code = 30.8 pg 25.9-32.8 785-6) MCHC (test code = 31.7 g/dL 31.6-35.1 786-4) RDW-SD (test code = 43.9 fL 39.0-49.9 61960-1) RDW-CV (test code = 12.3 % 12.0-15.5 788-0) PLT (test code = See_Comment [Automated 777-3) message] The sy stem which generated this result transmitted reference range : 166 - 358 10*3/ ?L. The reference r pernell was not used to interpret this result as normal/abnormal . MPV (test code = 11.9 fL 9.5-12.9 16212-2) NRBC/100 WBC (test See_Comment [Automat ed code = 6637261378) message] The system which generated this result transmitted reference range : 0.0 - 10.0 /100 WBCs. The refer ence range was not u sed to interpret th is result as normal/abnormal . NRBC x10^3 (test code <0.01 See_Comment [Auto mated = 7047368656) message] The s ystem which generated this result transmitted reference range : 10*3/?L. The reference range was not used to interpret this result as normal/abnormal . GRAN MAT (NEUT) % 49.7 % (test code = 770-8) IMM GRAN % (test code 0.10 % = 7069112051) LYMPH % (test code = 39.1 % 736-9) MONO % (test code = 8.6 % 5905-5) EOS % (test code = 2.1 % 713-8) BASO % (test code = 0.4 % 706-2) GRAN MAT x10^3(ANC) 3.80 10*3/uL 1.88-7.09 (test code = 2986790957) IMM GRAN x10^3 (test <0.03 0.00-0.06 code = 2685596590) LYMPH x10^3 (test code 2.99 10*3/uL 1.32-3.29 = 731-0) MONO x10^3 (test code 0.66 10*3/uL 0.33-0.92 = 742-7) EOS x10^3 (test code = 0.16 10*3/uL 0.03-0.39 711-2) BASO x10^3 (test code 0.03 10*3/uL 0.01-0.07 = 704-7) Lab Interpretation Abnormal (test code = 08168-1) [facility] [id number] 10:04:54 Test Item Value Reference Interpretation Comments Range TROPONIN I (test 0.210 ng/mL See_Comment H [Automated code = 3877890668) message] The system which generated this result transmitted reference range : <=0.034. The reference range was not used to interpret this result as normal/abnormal . MYNOR (test code = Reference (Normal) MYNOR) Range (defined by the 99th percentile reference limit): <= 0.034 ng/mL Note: Cardiac troponin begins to rise 3-4 hours after the onset of ischemia. Repeat in 4-6 hours if the sample was drawn within 3-4 hours of the onset of the symptom and found normal. Diagnosis of myocardial injury is made with acute changes in cTn concentrations with at least one serial sample above the 99th percentile upper reference limit (URL), taken together with the patient's clinical presentation. Biotin has been reported to cause a negative bias, interpret results relative to patient's use of biotin. Lab Interpretation Abnormal (test code = 05000-1) [facility] with [id number] 09:53:52 Test Item Value Reference Range Interpretation Comments WBC (test code = See_Comment [Automated 6690-2) message] The sy stem which generated this result transmitted reference range : 4.30 - 11.10 10*3/?L. The reference range was not used to interpret this result as normal/abnormal . RBC (test code = See_Comment [Automated 789-8) message] The sy stem which generated this result transmitted reference range : 3.93 - 5.25 10*6/?L. The reference range was not used to interpret this result as normal/abnormal . HGB (test code = 14.4 g/dL 11.6-15.0 718-7) HCT (test code = 44.1 % 35.7-45.2 4544-3) MCV (test code = 96.1 fL 80.6-95.5 H 787-2) MCH (test code = 31.4 pg 25.9-32.8 785-6) MCHC (test code = 32.7 g/dL 31.6-35.1 786-4) RDW-SD (test code = 44.1 fL 39.0-49.9 77115-5) RDW-CV (test code = 12.4 % 12.0-15.5 788-0) PLT (test code = See_Comment [Automated 777-3) message] The sy stem which generated this result transmitted reference range : 166 - 358 10*3/ ?L. The reference r pernell was not used to interpret this result as normal/abnormal . MPV (test code = 12.0 fL 9.5-12.9 71418-4) NRBC/100 WBC (test See_Comment [Automat ed code = 9614911059) message] The system which generated this result transmitted reference range : 0.0 - 10.0 /100 WBCs. The refer ence range was not u sed to interpret th is result as normal/abnormal . NRBC x10^3 (test code <0.01 See_Comment [Auto mated = 6543270104) message] The s [employer] which generated this result transmitted reference range : 10*3/?L. The reference range was not used to interpret this result as normal/abnormal . GRAN MAT (NEUT) % 48.2 % (test code = 770-8) IMM GRAN % (test code 0.30 % = 9771129455) LYMPH % (test code = 42.0 % 736-9) MONO % (test code = 7.3 % 5905-5) EOS % (test code = 1.8 % 713-8) BASO % (test code = 0.4 % 706-2) GRAN MAT x10^3(ANC) 3.51 10*3/uL 1.88-7.09 (test code = 4863453650) IMM GRAN x10^3 (test <0.03 0.00-0.06 code = 6138143260) LYMPH x10^3 (test code 3.06 10*3/uL 1.32-3.29 = 731-0) MONO x10^3 (test code 0.53 10*3/uL 0.33-0.92 = 742-7) EOS x10^3 (test code = 0.13 10*3/uL 0.03-0.39 711-2) BASO x10^3 (test code 0.03 10*3/uL 0.01-0.07 = 704-7) Lab Interpretation Abnormal (test code = 13949-7) [facility] Metabolic Panel (NA, K, CL, CO2, GLUCOSE, BUN, CREATININE, CA)2022-03-01 09:53:52 Test Item Value Reference Range Interpretation Comments NA (test code = 140 mmol/L 135-145 0659454936) K (test code = 4.0 mmol/L 3.5-5.0 8246225747) CL (test code = 107 mmol/L 98-108 0459109047) CO2 TOTAL (test code = 28 mmol/L 23-31 7525531395) AGAP (test code = 2-16 5891779554) BUN (test code = 27 mg/dL 7-23 H 6547574898) GLUCOSE (test code = 135 mg/dL 70-110 H 6872502715) CREATININE (test code = 0.96 mg/dL 0.50-1.04 4743783452) CALCIUM (test code = 8.5 mg/dL 8.6-10.6 L 6748301699) eGFR (test code = mL/min/1.73m2 1192129093) MYNOR (test code = MYNOR) Association of Glomerular Filtration Rate (GFR) and Staging of Kidney Disease* + --+ --+ ------+| GFR (mL/min/1.73 m2) ?| With Kidney Damage ?| ?Without Kidney Damage+ --------+ --------+ +| ?>90 ?| ?Stage one ?| ? Normal ?+ ---+ ---+ -------+| ?60-89 ?| ?Stage two ?| ? Decreased GFR ? + --+ --+ ------+| ?30-59 ?| ?Stage three ?| ? Stage three ? + --+ --+ ------+| ?15-29 ?| ?Stage four ? | ? Stage four ?+ ---+ ---+ -------+| ?<15 (or dialysis) ? ?| ?Stage five ? | ? Stage five ?+ ---+ ---+ -------+ *Each stage assumes the associated GFR level has been in effect for at least three months. ?Stages 1 to 5, with or without kidney disease, indicate chronic kidney disease. Notes: Determination of stages one and two (with eGFR >59mL/min/1.73 m2) requires estimation of kidney damage for at least three months as defined by structural or functional abnormalities of the kidney, manifested by either:Pathological abnormalities or Markers of kidney damage (including abnormalities in the composition of the blood or urine or abnormalities in imaging tests). Lab Interpretation Abnormal (test code = 79012-0) [facility] [id number] 16:21:00 Test Item Value Reference Interpretation Comments Range TROPONIN I (test 0.507 ng/mL See_Comment H [Automated code = 9391078622) message] The system which generated this result transmitted reference range : <=0.034. The reference range was not used to interpret this result as normal/abnormal . MYNOR (test code = Reference (Normal) MYNOR) Range (defined by the 99th percentile reference limit): <= 0.034 ng/mL Note: Cardiac troponin begins to rise 3-4 hours after the onset of ischemia. Repeat in 4-6 hours if the sample was drawn within 3-4 hours of the onset of the symptom and found normal. Diagnosis of myocardial injury is made with acute changes in cTn concentrations with at least one serial sample above the 99th percentile upper reference limit (URL), taken together with the patient's clinical presentation. Biotin has been reported to cause a negative bias, interpret results relative to patient's use of biotin. Lab Interpretation Abnormal (test code = 35547-6) [facility] [id number] 11:06:18 Test Item Value Reference Interpretation Comments Range TROPONIN I (test 0.662 ng/mL See_Comment H [Automated code = 4283901784) message] The system which generated this result transmitted reference range : <=0.034. The reference range was not used to interpret this result as normal/abnormal . MYNOR (test code = Reference (Normal) MYNOR) Range (defined by the 99th percentile reference limit): <= 0.034 ng/mL Note: Cardiac troponin begins to rise 3-4 hours after the onset of ischemia. Repeat in 4-6 hours if the sample was drawn within 3-4 hours of the onset of the symptom and found normal. Diagnosis of myocardial injury is made with acute changes in cTn concentrations with at least one serial sample above the 99th percentile upper reference limit (URL), taken together with the patient's clinical presentation. Biotin has been reported to cause a negative bias, interpret results relative to patient's use of biotin. Lab Interpretation Abnormal (test code = 88906-8) [facility] [id number] 03:39:54 Test Item Value Reference Interpretation Comments Range TROPONIN I (test 0.048 ng/mL See_Comment H [Automated code = 2211499608) message] The system which generated this result transmitted reference range : <=0.034. The reference range was not used to interpret this result as normal/abnormal . MYNOR (test code = Reference (Normal) MYNOR) Range (defined by the 99th percentile reference limit): <= 0.034 ng/mL Note: Cardiac troponin begins to rise 3-4 hours after the onset of ischemia. Repeat in 4-6 hours if the sample was drawn within 3-4 hours of the onset of the symptom and found normal. Diagnosis of myocardial injury is made with acute changes in cTn concentrations with at least one serial sample above the 99th percentile upper reference limit (URL), taken together with the patient's clinical presentation. Biotin has been reported to cause a negative bias, interpret results relative to patient's use of biotin. Lab Interpretation Abnormal (test code = 56167-9) [facility] [id number] 03:36:52 Test Item Value Reference Range Interpretation Comments NT-proBNP (test code 140 pg/mL See_Comment [Autom ated = 4176198054) message] The system which generated this result transmitted reference range : <=450. The reference range was not used to interpret this result as normal/abnormal . MYNOR (test code = MYNOR) Biotin has been reported to cause a negative bias, interpret results relative to patient's use of biotin. Lab Interpretation Normal (test code = 26655-4) [facility] METABOLIC PANEL (22883)2022-02-28 03:28:11 Test Item Value Reference Range Interpretation Comments NA (test code = 140 mmol/L 135-145 1448099595) K (test code = 4.1 mmol/L 3.5-5.0 4982821628) CL (test code = 105 mmol/L 98-108 6744693258) CO2 TOTAL (test code = 23 mmol/L 23-31 0858728605) AGAP (test code = 2-16 9769855285) BUN (test code = 22 mg/dL 7-23 3207153178) GLUCOSE (test code = 180 mg/dL 70-110 H 7178481252) CREATININE (test code = 0.90 mg/dL 0.50-1.04 4961109254) TOTAL BILI (test code = 0.6 mg/dL 0.1-1.7 4567520780) CALCIUM (test code = 9.2 mg/dL 8.6-10.6 2884282028) T PROTEIN (test code = 7.2 g/dL 6.3-8.2 7773550126) ALBUMIN (test code = 4.2 g/dL 3.5-5.0 8417055840) ALK PHOS (test code = 138 U/L 34-122 H 8829764006) ALTv (test code = 22 U/L 5-35 1742-6) AST(SGOT) (test code = 27 U/L 13-40 8766651934) eGFR (test code = mL/min/1.73m2 7884278278) MYNOR (test code = MYNOR) Association of Glomerular Filtration Rate (GFR) and Staging of Kidney Disease* + --+ --+ ------+| GFR (mL/min/1.73 m2) ?| With Kidney Damage ?| ?Without Kidney Damage+ --------+ --------+ +| ?>90 ?| ?Stage one ?| ? Normal ?+ ---+ ---+ -------+| ?60-89 ?| ?Stage two ?| ? Decreased GFR ? + --+ --+ ------+| ?30-59 ?| ?Stage three ?| ? Stage three ? + --+ --+ ------+| ?15-29 ?| ?Stage four ? | ? Stage four ?+ ---+ ---+ -------+| ?<15 (or dialysis) ? ?| ?Stage five ? | ? Stage five ?+ ---+ ---+ -------+ *Each stage assumes the associated GFR level has been in effect for at least three months. ?Stages 1 to 5, with or without kidney disease, indicate chronic kidney disease. Notes: Determination of stages one and two (with eGFR >59mL/min/1.73 m2) requires estimation of kidney damage for at least three months as defined by structural or functional abnormalities of the kidney, manifested by either:Pathological abnormalities or Markers of kidney damage (including abnormalities in the composition of the blood or urine or abnormalities in imaging tests). Lab Interpretation Abnormal (test code = 09305-7) [facility] 03:27:26 Test Item Value Reference Range Interpretation Comments LIPASE (test code = 8584389951) 179 U/L 0-220 Lab Interpretation (test code = Normal 96823-2) [facility] CenterACTIVATED PARTIAL THRMPLAS [id number] 03:23:09 Test Item Value Reference Range Interpretation Comments APTT Patient (test See_Comment [Automat ed code = 3173-2) message] The system which generated this result transmitted reference range : 23 - 38 Seconds . The reference range was not used to interpr et this result as normal/abnormal . MYNOR (test code = MYNOR) The [facility] patient population mean normal value for aPTT is 30 seconds. Lab Interpretation Normal (test code = 93934-1) [facility] CenterPROTHROMBIN TIME / [id number] 03:21:06 Test Item Value Reference Range Interpretation Comments PROTIME PATIENT (test See_Comment [Auto mated message] code = 5964-2) The system wh ich generated this result transmitted ref erence range: 12.0 - 1 4.7 Seconds. The re ference range was not u sed to interpret this result as normal/abnor mal. INR (test code = 6301-6) Nor mal INR <1.1; Warfarin Therap eutic range 2.0 to 3. 0 or 2.5 to 3.5, dep ending upon the indica tions. Lab Interpretation (test Normal code = 07731-7) [facility] [id number] 03:18:46 Test Item Value Reference Range Interpretation Comments WBC (test code = See_Comment H [Automated 5690-2) message] The system which generated this result transmit romain reference range : 4.30 - 11.10 10*3/?L. The reference range was not used to interpret this result as normal/abnormal . RBC (test code = See_Comment [Automated 719-8) message] The system which generated this result transmit romain reference range : 3.93 - 5.25 10*6/?L. The reference range was not used to interpret this result as normal/abnormal . HGB (test code = 15.9 g/dL 11.6-15.0 H 718-7) HCT (test code = 47.2 % 35.7-45.2 H 4544-3) MCV (test code = 93.1 fL 80.6-95.5 787-2) MCH (test code = 31.4 pg 25.9-32.8 785-6) MCHC (test code = 33.7 g/dL 31.6-35.1 786-4) RDW-SD (test code = 41.8 fL 39.0-49.9 95668-2) RDW-CV (test code = 12.2 % 12.0-15.5 788-0) PLT (test code = See_Comment [Automated 777-3) message] The system which generated this result transmit romain reference range : 166 - 358 10*3/ ?L. The reference range was not u sed to interpret th is result as normal/abnormal . MPV (test code = 11.7 fL 9.5-12.9 06382-5) NRBC/100 WBC (test See_Comment [Automat ed code = 5796550230) message] The system which generated this result transmit romain reference range : 0.0 - 10.0 /100 WBCs. The reference range was not used to interpret this result as normal/abnormal . NRBC x10^3 (test code <0.01 See_Comment [Auto mated = 5272344674) message] The system which generated this result transmit romain reference range : 10*3/?L. The reference range was not used to interpret this result as normal/abnormal . GRAN MAT (NEUT) % 81.5 % (test code = 770-8) IMM GRAN % (test code 0.50 % = 5899050292) LYMPH % (test code = 11.7 % 736-9) MONO % (test code = 4.6 % 5905-5) EOS % (test code = 1.5 % 713-8) BASO % (test code = 0.2 % 706-2) GRAN MAT x10^3(ANC) 10.57 10*3/uL 1.88-7.09 H (test code = 5559264136) IMM GRAN x10^3 (test 0.06 10*3/uL 0.00-0.06 code = 6008556963) LYMPH x10^3 (test code 1.52 10*3/uL 1.32-3.29 = 731-0) MONO x10^3 (test code 0.60 10*3/uL 0.33-0.92 = 742-7) EOS x10^3 (test code = 0.19 10*3/uL 0.03-0.39 711-2) BASO x10^3 (test code 0.03 10*3/uL 0.01-0.07 = 704-7) Lab Interpretation Abnormal (test code = 86391-3) [id number] 14:13:40 Test Item Value Reference Interpretation Comments Range TROPONIN I (test 0.040 ng/mL See_Comment H [Automated code = 2135357830) message] The system which generated this result transmitted reference range : <=0.034. The reference range was not used to interpret this result as normal/abnormal . MYNOR (test code = Reference (Normal) MYNOR) Range (defined by the 99th percentile reference limit): <= 0.034 ng/mL Note: Cardiac troponin begins to rise 3-4 hours after the onset of ischemia. Repeat in 4-6 hours if the sample was drawn within 3-4 hours of the onset of the symptom and found normal. Diagnosis of myocardial injury is made with acute changes in cTn concentrations with at least one serial sample above the 99th percentile upper reference limit (URL), taken together with the patient's clinical presentation. Biotin has been reported to cause a negative bias, interpret results relative to patient's use of biotin. Lab Interpretation Abnormal (test code = 92676-4) [facility] [id number] 10:21:39 Test Item Value Reference Range Interpretation Comments NT-proBNP (test code 4390 pg/mL See_Comment H [Autom ated = 8053076350) message] The system which generated this result transmitted reference range : <=450. The reference range was not used to interpret this result as normal/abnormal . MYNOR (test code = MYNOR) Biotin has been reported to cause a negative bias, interpret results relative to patient's use of biotin. Lab Interpretation Abnormal (test code = 43878-6) [facility] Center[facility] (NA, K, CL, CO2, GLUCOSE, BUN, CREATININE, CA)2021-08-04 10:16:20 Test Item Value Reference Range Interpretation Comments NA (test code = 135 mmol/L 135-145 9511492006) K (test code = 3.6 mmol/L 3.5-5.0 1763350038) CL (test code = 103 mmol/L 98-108 5003659871) CO2 TOTAL (test code = 30 mmol/L 23-31 6474314103) AGAP (test code = 2-16 4286084631) BUN (test code = 25 mg/dL 7-23 H 9207598138) GLUCOSE (test code = 107 mg/dL 70-110 6331904658) CREATININE (test code = 0.83 mg/dL 0.50-1.04 8196125023) CALCIUM (test code = 9.0 mg/dL 8.6-10.6 5342760851) eGFR (test code = mL/min/1.73m2 6061105493) MYNOR (test code = MYNOR) Association of Glomerular Filtration Rate (GFR) and Staging of Kidney Disease* + --+ --+ ------+| GFR (mL/min/1.73 m2) ?| With Kidney Damage ?| ?Without Kidney Damage+ --------+ --------+ +| ?>90 ?| ?Stage one ?| ? Normal ?+ ---+ ---+ -------+| ?60-89 ?| ?Stage two ?| ? Decreased GFR ? + --+ --+ ------+| ?30-59 ?| ?Stage three ?| ? Stage three ? + --+ --+ ------+| ?15-29 ?| ?Stage four ? | ? Stage four ?+ ---+ ---+ -------+| ?<15 (or dialysis) ? ?| ?Stage five ? | ? Stage five ?+ ---+ ---+ -------+ *Each stage assumes the associated GFR level has been in effect for at least three months. ?Stages 1 to 5, with or without kidney disease, indicate chronic kidney disease. Notes: Determination of stages one and two (with eGFR >59mL/min/1.73 m2) requires estimation of kidney damage for at least three months as defined by structural or functional abnormalities of the kidney, manifested by either:Pathological abnormalities or Markers of kidney damage (including abnormalities in the composition of the blood or urine or abnormalities in imaging tests). Lab Interpretation Abnormal (test code = 18368-8) [facility] CenterMagnesium [id number] 10:16:20 Test Item Value Reference Range Interpretation Comments MAGNESIUM (test code = 3675339393) 2.0 mg/dL 1.7-2.4 Lab Interpretation (test code = Normal 03248-6) [facility] with [id number] 09:41:17 Test Item Value Reference Range Interpretation Comments WBC (test code = See_Comment [Automated message] 9290-2) The system [employer] generated this result transmitted ref erence range: 4.30 - 1 1.10 10*3/?L. The re ference range was not u sed to interpret this result as normal/abnor mal. RBC (test code = See_Comment [Automated message] 079-8) The system [employer] generated this result transmitted ref erence range: 3.93 - 5 .25 10*6/?L. The re ference range was not u sed to interpret this result as normal/abnor mal. HGB (test code = 13.5 g/dL 11.6-15.0 718-7) HCT (test code = 39.9 % 35.7-45.2 4544-3) MCV (test code = 94.3 fL 80.6-95.5 787-2) MCH (test code = 31.9 pg 25.9-32.8 785-6) MCHC (test code = 33.8 g/dL 31.6-35.1 786-4) RDW-SD (test code 42.8 fL 39.0-49.9 = 88191-5) RDW-CV (test code 12.3 % 12.0-15.5 = 788-0) PLT (test code = See_Comment [Automated message] 187-3) The system [employer] generated this result transmitted ref erence range: 166 - 35 8 10*3/?L. The re ference range was not u sed to interpret this result as normal/abnor mal. MPV (test code = 12.0 fL 9.5-12.9 95173-5) NRBC/100 WBC (test See_Comment [Automat ed message] code = 1229362085) The syste [employer] which generated this result transmitted ref erence range: 0.0 - 10 .0 /100 WBCs. The refer ence range was not u sed to interpret this result as normal/abnor mal. NRBC x10^3 (test <0.01 See_Comment [Automated message] code = 8814474585) The syste m which generated this result transmitted ref erence range: 10*3/?L. The reference range was not used to interpr et this result as normal/abnormal . GRAN MAT (NEUT) % 50.0 % (test code = 770-8) IMM GRAN % (test 0.30 % code = 7999221878) LYMPH % (test code 38.3 % = 736-9) MONO % (test code 9.1 % = 5905-5) EOS % (test code = 1.9 % 713-8) BASO % (test code 0.4 % = 706-2) GRAN MAT 3.69 10*3/uL 1.88-7.09 x10^3(ANC) (test code = 9576768227) IMM GRAN x10^3 <0.03 0.00-0.06 (test code = 6360534383) LYMPH x10^3 (test 2.82 10*3/uL 1.32-3.29 code = 731-0) MONO x10^3 (test 0.67 10*3/uL 0.33-0.92 code = 742-7) EOS x10^3 (test 0.14 10*3/uL 0.03-0.39 code = 711-2) BASO x10^3 (test 0.03 10*3/uL 0.01-0.07 code = 704-7) [facility] CenterLactic Acid Whole [id number] 03:02:20 Test Item Value Reference Range Interpretation Comments LACTIC ACID (test code = 1.50 mmol/L 0.50-2.20 1515455927) Lab Interpretation (test code = Normal 95825-4) [facility] CenterTROPONIN [id number] 02:58:46 Test Item Value Reference Interpretation Comments Range TROPONIN I (test 0.051 ng/mL See_Comment H [Automated code = 5360412039) message] The system which generated this result transmitted reference range : <=0.034. The reference range was not used to interpret this result as normal/abnormal . MYNOR (test code = Reference (Normal) MYNOR) Range (defined by the 99th percentile reference limit): <= 0.034 ng/mL Note: Cardiac troponin begins to rise 3-4 hours after the onset of ischemia. Repeat in 4-6 hours if the sample was drawn within 3-4 hours of the onset of the symptom and found normal. Diagnosis of myocardial injury is made with acute changes in cTn concentrations with at least one serial sample above the 99th percentile upper reference limit (URL), taken together with the patient's clinical presentation. Biotin has been reported to cause a negative bias, interpret results relative to patient's use of biotin. 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 The reference range was not used to interpret this result as normal/abnormal . MYNOR (test code = Reference (Normal) MYNOR) Range (defined by the 99th percentile reference limit): <= 0.034 ng/mL Note: Cardiac troponin begins to rise 3-4 hours after the onset of ischemia. Repeat in 4-6 hours if the sample was drawn within 3-4 hours of the onset of the symptom and found normal. Diagnosis of myocardial injury is made with acute changes in cTn concentrations with at least one serial sample above the 99th percentile upper reference limit (URL), taken together with the patient's clinical presentation. Biotin has been reported to cause a negative bias, interpret results relative to patient's use of biotin. Lab Interpretation Abnormal (test code = 46377-6) [facility] CenterN-TERMINAL [id number] 18:58:35 Test Item Value Reference Range Interpretation Comments NT-proBNP (test code 8920 pg/mL See_Comment H [Autom ated = 0443967166) message] The system which generated this result transmitted reference range : <=450. The reference range was not used to interpret this result as normal/abnormal . MYNOR (test code = MYNOR) Biotin has been reported to cause a negative bias, interpret results relative to patient's use of biotin. Lab Interpretation Abnormal (test code = 24154-5) [facility] CenterACTIVATED PARTIAL THRMPLAS [id number] 18:54:36 Test Item Value Reference Range Interpretation Comments APTT Patient (test See_Comment H [Automat ed code = 3173-2) message] The system which generated this result transmitted reference range : 23 - 38 Seconds . The reference range was not used to interpr et this result as normal/abnormal . MYNOR (test code = MYNOR) The [facility] patient population mean normal value for aPTT is 30 seconds. Lab Interpretation Abnormal (test code = 04647-9) [facility] CenterPROTHROMBIN TIME / [id number] 18:52:31 Test Item Value Reference Range Interpretation Comments PROTIME PATIENT (test See_Comment H [Auto mated message] code = 5964-2) The system wh ich generated this result transmitted ref erence range: 12.0 - 1 4.7 Seconds. The reference range was not used to int erpret this result as normal/abnormal . INR (test code = 6301-6) Nor mal INR <1.1; Warfarin Therap eutic range 2.0 to 3. 0 or 2.5 to 3.5, dep ending upon the indica tions. Lab Interpretation (test Abnormal code = 80344-7) [facility] CenterCOMP. METABOLIC PANEL (44772)2021-08-03 18:49:51 Test Item Value Reference Range Interpretation Comments NA (test code = 137 mmol/L 135-145 2242133115) K (test code = 3.9 mmol/L 3.5-5.0 8158485886) CL (test code = 101 mmol/L 98-108 4692911276) CO2 TOTAL (test code = 28 mmol/L 23-31 1869354252) AGAP (test code = 2-16 0249399174) BUN (test code = 26 mg/dL 7-23 H 5766348306) GLUCOSE (test code = 261 mg/dL 70-110 H 3967498429) CREATININE (test code = 1.10 mg/dL 0.50-1.04 H 2505464563) TOTAL BILI (test code = 0.5 mg/dL 0.1-1.9 0334397116) CALCIUM (test code = 8.6 mg/dL 8.6-10.6 3130016959) T PROTEIN (test code = 6.0 g/dL 6.3-8.2 L 9572252532) ALBUMIN (test code = 3.3 g/dL 3.5-5.0 L 6487393440) ALK PHOS (test code = 77 U/L 34-122 3362873707) ALTv (test code = 19 U/L 5-35 1742-6) AST(SGOT) (test code = 26 U/L 13-40 2698210847) eGFR (test code = mL/min/1.73m2 2897294184) MYNOR (test code = MYNOR) Association of Glomerular Filtration Rate (GFR) and Staging of Kidney Disease* + --+ --+ ------+| GFR (mL/min/1.73 m2) ?| With Kidney Damage ?| ?Without Kidney Damage+ --------+ --------+ +| ?>90 ?| ?Stage one ?| ? Normal ?+ ---+ ---+ -------+| ?60-89 ?| ?Stage two ?| ? Decreased GFR ? + --+ --+ ------+| ?30-59 ?| ?Stage three ?| ? Stage three ? + --+ --+ ------+| ?15-29 ?| ?Stage four ? | ? Stage four ?+ ---+ ---+ -------+| ?<15 (or dialysis) ? ?| ?Stage five ? | ? Stage five ?+ ---+ ---+ -------+ *Each stage assumes the associated GFR level has been in effect for at least three months. ?Stages 1 to 5, with or without kidney disease, indicate chronic kidney disease. Notes: Determination of stages one and two (with eGFR >59mL/min/1.73 m2) requires estimation of kidney damage for at least three months as defined by structural or functional abnormalities of the kidney, manifested by either:Pathological abnormalities or Markers of kidney damage (including abnormalities in the composition of the blood or urine or abnormalities in imaging tests). Lab Interpretation Abnormal (test code = 82299-8) [facility] WITH [id number] 18:33:30 Test Item Value Reference Range Interpretation Comments WBC (test code = See_Comment [Automated 2690-2) message] The sy stem which generated this result transmitted reference range : 4.30 - 11.10 10*3/?L. The reference range was not used to interpret this result as normal/abnormal . RBC (test code = See_Comment [Automated 789-8) message] The sy stem which generated this result transmitted reference range : 3.93 - 5.25 10*6/?L. The reference range was not used to interpret this result as normal/abnormal . HGB (test code = 14.2 g/dL 11.6-15.0 718-7) HCT (test code = 43.1 % 35.7-45.2 4544-3) MCV (test code = 96.6 fL 80.6-95.5 H 787-2) MCH (test code = 31.8 pg 25.9-32.8 785-6) MCHC (test code = 32.9 g/dL 31.6-35.1 786-4) RDW-SD (test code = 44.2 fL 39.0-49.9 20214-2) RDW-CV (test code = 12.3 % 12.0-15.5 788-0) PLT (test code = See_Comment [Automated 777-3) message] The sy stem which generated this result transmitted reference range : 166 - 358 10*3/ ?L. The reference r pernell was not used to interpret this result as normal/abnormal . MPV (test code = 11.2 fL 9.5-12.9 89187-9) NRBC/100 WBC (test See_Comment [Automat ed code = 1576557489) message] The system which generated this result transmitted reference range : 0.0 - 10.0 /100 WBCs. The refer ence range was not u sed to interpret th is result as normal/abnormal . NRBC x10^3 (test code <0.01 See_Comment [Auto mated = 5474983502) message] The s ystem which generated this result transmitted reference range : 10*3/?L. The reference range was not used to interpret this result as normal/abnormal . GRAN MAT (NEUT) % 69.9 % (test code = 770-8) IMM GRAN % (test code 0.30 % = 9240144755) LYMPH % (test code = 21.0 % 736-9) MONO % (test code = 7.6 % 5905-5) EOS % (test code = 0.9 % 713-8) BASO % (test code = 0.3 % 706-2) GRAN MAT x10^3(ANC) 6.30 10*3/uL 1.88-7.09 (test code = 1154684421) IMM GRAN x10^3 (test 0.03 10*3/uL 0.00-0.06 code = 3564691851) LYMPH x10^3 (test code 1.89 10*3/uL 1.32-3.29 = 731-0) MONO x10^3 (test code 0.69 10*3/uL 0.33-0.92 = 742-7) EOS x10^3 (test code = 0.08 10*3/uL 0.03-0.39 711-2) BASO x10^3 (test code 0.03 10*3/uL 0.01-0.07 = 704-7) Lab Interpretation Abnormal (test code = 03367-3) [facility] GLUCOSE (AUTOMATED)2020-09-17 16:17:00 Test Item Value Reference Range Interpretation Comments POCT GLU (test code = 4577598048) 184 mg/dL 70-110 H Lab Interpretation (test code = Abnormal 27932-8) [facility] GLUCOSE (AUTOMATED)2020-09-17 03:08:00 Test Item Value Reference Range Interpretation Comments POCT GLU (test code = 1604426042) 150 mg/dL 70-110 H Lab Interpretation (test code = Abnormal 11854-8) [facility] GLUCOSE (AUTOMATED)2020-09-16 23:26:00 Test Item Value Reference Range Interpretation Comments POCT GLU (test code = 166 mg/dL 70-110 H Notifi ed Provider [id number]) Lab Interpretation (test Abnormal code = 52176-6) [facility] GLUCOSE (AUTOMATED)2020-09-16 18:54:00 Test Item Value Reference Range Interpretation Comments POCT GLU (test code = 147 mg/dL 70-110 H Notifi ed Provider [id number]) Lab Interpretation (test Abnormal code = 41666-3) [facility] GLUCOSE (AUTOMATED)2020-09-16 15:18:00 Test Item Value Reference Range Interpretation Comments POCT GLU (test code = 146 mg/dL 70-110 H Notif ed Provider [id number]) Lab Interpretation (test Abnormal code = 74622-4) [facility] METABOLIC PANEL (NA, K, CL, CO2, GLUCOSE, BUN, CREATININE, CA)2020-09-16 13:17:00 Test Item Value Reference Range Interpretation Comments NA (test code = 149 mmol/L 135-145 H 3378202911) K (test code = 3.3 mmol/L 3.5-5 L 9870108431) CL (test code = 114 mmol/L 98-108 H 5192996387) CO2 TOTAL (test code = 31 mmol/L 23-31 7487097032) AGAP (test code = 2-16 4442349297) BUN (test code = 31 mg/dL 7-23 H 1509239284) GLUCOSE (test code = 141 mg/dL 70-110 H 0651263136) CREATININE (test code = 1.66 mg/dL 0.5-1.04 H 5638503033) CALCIUM (test code = 8.6 mg/dL 8.6-10.6 3231625548) eGFR Calculation mL/min/1.73m2 (Non-) (test code = 3170485637) eGFR Calculation mL/min/1.73m2 () (test code = 3205514513) MYNOR (test code = MYNOR) Association of Glomerular Filtration Rate (GFR) and Staging of Kidney Disease* + --+ --+ ------+| GFR (mL/min/1.73 m2) ?| With Kidney Damage ?| ?Without Kidney Damage+ --------+ --------+ +| ?>90 ?| ?Stage one ?| ? Normal ?+ ---+ ---+ -------+| ?60-89 ?| ?Stage two ?| ? Decreased GFR ? + --+ --+ ------+| ?30-59 ?| ?Stage three ?| ? Stage three ? + --+ --+ ------+| ?15-29 ?| ?Stage four ? | ? Stage four ?+ ---+ ---+ -------+| ?<15 (or dialysis) ? ?| ?Stage five ? | ? Stage five ?+ ---+ ---+ -------+ *Each stage assumes the associated GFR level has been in effect for at least three months. ?Stages 1 to 5, with or without kidney disease, indicate chronic kidney disease. Notes: Determination of stages one and two (with eGFR >59mL/min/1.73 m2) requires estimation of kidney damage for at least three months as defined by structural or functional abnormalities of the kidney, manifested by either:Pathological abnormalities or Markers of kidney damage (including abnormalities in the composition of the blood or urine or abnormalities in imaging tests). Lab Interpretation Abnormal (test code = 11020-0) [facility] Center[facility]2020-12-04 13:17:00 Test Item Value Reference Range Interpretation Comments MAGNESIUM (test code = 7791273282) 1.7 mg/dL 1.7-2.4 Lab Interpretation (test code = Normal 57023-1) [facility] CenterPHOSPHORUS2020-12-04 13:17:00 Test Item Value Reference Range Interpretation Comments PHOSPHORUS (test code = 9346106667) 3.3 mg/dL 2.5-5 Lab Interpretation (test code = Normal 45672-5) [facility] CenteraPTT (for use with Heparin Drip)2020-09-16 13:05:00 Test Item Value Reference Range Interpretation Comments APTT Patient (test code See_Comment H [Au tomated message] = 3173-2) The system [employer] generated this result transmitted ref erence range: 26 - 36 Seconds. The reference range was not used to int erpret this result as normal/abnormal . Lab Interpretation (test Abnormal code = 48290-3) [facility] CenterCBC WITH [id number] 12:55:00 Test Item Value Reference Range Interpretation Comments WBC (test code = See_Comment [Automated 4090-2) message] The sy stem which generated this result transmitted reference range : 4.30 - 11.10 10*3/?L. The reference range was not used to interpret this result as normal/abnormal . RBC (test code = See_Comment L [Automated 039-8) message] The sy stem which generated this result transmitted reference range : 3.93 - 5.25 10*6/?L. The reference range was not used to interpret this result as normal/abnormal . HGB (test code = 10.2 g/dL 11.6-15 L 718-7) HCT (test code = 30.9 % 35.7-45.2 L 4544-3) MCV (test code = 94.8 fL 80.6-95.5 787-2) MCH (test code = 31.3 pg 25.9-32.8 785-6) MCHC (test code = 33.0 g/dL 31.6-35.1 786-4) RDW-SD (test code = 41.2 fL 39-49.9 46268-4) RDW-CV (test code = 11.9 % 12-15.5 L 788-0) PLT (test code = See_Comment [Automated 777-3) message] The sy stem which generated this result transmitted reference range : 166 - 358 10*3/ ?L. The reference r pernell was not used to interpret this result as normal/abnormal . MPV (test code = 11.3 fL 9.5-12.9 45194-8) NRBC/100 WBC (test See_Comment [Automat ed code = 0047157056) message] The system which generated this result transmitted reference range : 0.0 - 10.0 /100 WBCs. The refer ence range was not u sed to interpret th is result as normal/abnormal . NRBC x10^3 (test code <0.01 See_Comment [Auto mated = 2474282619) message] The s ystem which generated this result transmitted reference range : 10*3/?L. The reference range was not used to interpret this result as normal/abnormal . GRAN MAT (NEUT) % 67.4 % (test code = 770-8) IMM GRAN % (test code 0.40 % = 1183150681) LYMPH % (test code = 18.5 % 736-9) MONO % (test code = 10.2 % 5905-5) EOS % (test code = 3.1 % 713-8) BASO % (test code = 0.4 % 706-2) GRAN MAT x10^3(ANC) 4.73 10*3/uL 1.88-7.09 (test code = 4847611408) IMM GRAN x10^3 (test 0.03 10*3/uL 0-0.06 code = 9666896128) LYMPH x10^3 (test code 1.30 10*3/uL 1.32-3.29 L = 731-0) MONO x10^3 (test code 0.72 10*3/uL 0.33-0.92 = 742-7) EOS x10^3 (test code = 0.22 10*3/uL 0.03-0.39 711-2) BASO x10^3 (test code 0.03 10*3/uL 0.01-0.07 = 704-7) Lab Interpretation Abnormal (test code = 80321-8) [facility] CULTURE [id number] 11:01:00 Test Item Value Reference Range Interpretation Comments Blood Culture-Aerobic No organisms No growth Previo us (test code = 56849-8) isolated prelim inary verified result was Culture In Progress on 09/11/2020 at 0801 CSTPreviou s preliminary verified result was No growth a t 24 hours on 09/12/2020 at 0501 CSTPreviou s preliminary verified result was No growth a t 48 hours on 09/13/2020 at 05 01 CSTPrevious preliminary verified result was No growth a t 72 hours on 09/14/2020 at 05 01 [employer] Blood No organisms No growth Previous Culture-Anaerobic isolated preliminar y (test code = 02236-8) verifi ed result was Culture In Progress on 09/11/2020 at 0801 CSTPreviou s preliminary verified result was No growth a t 24 hours on 09/12/2020 at 0501 CSTPreviou s preliminary verified result was No growth a t 48 hours on 09/13/2020 at 05 01 CSTPrevious preliminary verified result was No growth a t 72 hours on 09/14/2020 at 05 01 [employer] Lab Interpretation Normal (test code = 55987-8) [facility] CULTURE [id number] 11:01:00 Test Item Value Reference Range Interpretation Comments Blood Culture-Aerobic No organisms No growth Previo us (test code = 94994-3) isolated prelim inary verified result was Culture In Progress on 09/11/2020 at 0801 CSTPreviou s preliminary verified result was No growth a t 24 hours on 09/12/2020 at 0501 CSTPreviou s preliminary verified result was No growth a t 48 hours on 09/13/2020 at 05 01 CSTPrevious preliminary verified result was No growth a t 72 hours on 09/14/2020 at 05 01 [employer] Blood No organisms No growth Previous Culture-Anaerobic isolated preliminar y (test code = 76255-5) verifi ed result was Culture In Progress on 09/11/2020 at 0801 CSTPreviou s preliminary verified result was No growth a t 24 hours on 09/12/2020 at 0501 CSTPreviou s preliminary verified result was No growth a t 48 hours on 09/13/2020 at 05 01 CSTPrevious preliminary verified result was No growth a t 72 hours on 09/14/2020 at 05 01 [employer] Lab Interpretation Normal (test code = 42165-2) [facility]2020-09-16 05:35:00 Test Item Value Reference Range Interpretation Comments APTT Patient (test code See_Comment HH [Au tomated message] = 3173-2) The system [employer] generated this result transmitted ref erence range: 26 - 36 Seconds. The reference range was not used to int erpret this result as normal/abnormal . Lab Interpretation (test Abnormal code = 02553-1) [facility]2020-09-16 03:48:00 Test Item Value Reference Range Interpretation Comments POCT GLU (test code = 129 mg/dL 70-110 H Notifi ed Provider [id number]) Lab Interpretation (test Abnormal code = 19235-9) [facility] Center[facility] - Peripheral # [id number] 03:01:00 Test Item Value Reference Range Interpretation Comments Blood Culture-Aerobic No organisms No growth Previo us (test code = 76978-3) isolated prelim inary verified result was Culture In Progress on 09/11/2020 at 0001 CSTPreviou s preliminary verified result was No growth a t 24 hours on 09/11/2020 at 2101 CSTPreviou s preliminary verified result was No growth a t 48 hours on 09/12/2020 at 2101 CSTPreviou s preliminary verified result was No growth a t 72 hours on 09/13/2020 at 21 01 [employer] Blood No organisms No growth Previous Culture-Anaerobic isolated preliminar y (test code = 37531-6) verifi ed result was Culture In Progress on 09/11/2020 at 0001 CSTPreviou s preliminary verified result was No growth a t 24 hours on 09/11/2020 at 210 CSTPreviou s preliminary verified result was No growth a t 48 hours on 09/12/2020 at 2101 CSTPreviou s preliminary verified result was No growth a t 72 hours on 09/13/2020 at 21 01 [employer] Lab Interpretation Normal (test code = 00690-5) [facility] # [id number] 03:01:00 Test Item Value Reference Range Interpretation Comments Blood Culture-Aerobic No organisms No growth Previo us (test code = 05389-0) isolated prelim inary verified result was Culture In Progress on 09/11/2020 at 0001 CSTPreviou s preliminary verified result was No growth a t 24 hours on 09/11/2020 at 210 CSTPreviou s preliminary verified result was No growth a t 48 hours on 09/12/2020 at 210 CSTPreviou s preliminary verified result was No growth a t 72 hours on 09/13/2020 at 21 01 [employer] Blood No organisms No growth Previous Culture-Anaerobic isolated preliminar y (test code = 78433-1) verifi ed result was Culture In Progress on 09/11/2020 at 0001 CSTPreviou s preliminary verified result was No growth a t 24 hours on 09/11/2020 at 210 CSTPreviou s preliminary verified result was No growth a t 48 hours on 09/12/2020 at 210 CSTPreviou s preliminary verified result was No growth a t 72 hours on 09/13/2020 at 21 01 [employer] Lab Interpretation Normal (test code = 47021-8) [facility]arin Drip[facility]2020-09-15 22:29:00 Test Item Value Reference Range Interpretation Comments APTT Patient (test code See_Comment L [Au tomated message] = 3173-2) The system [employer] generated this result transmitted ref erence range: 26 - 36 Seconds. The reference range was not used to int erpret this result as normal/abnormal . Lab Interpretation (test Abnormal code = 70628-4) [facility]2020-09-15 19:17:00 Test Item Value Reference Range Interpretation Comments POCT GLU (test code = 2076389386) 137 mg/dL 70-110 H Lab Interpretation (test code = Abnormal 70285-0) [facility] METABOLIC PANEL (NA, K, CL, CO2, GLUCOSE, BUN, CREATININE, CA)2020-09-15 10:11:00 Test Item Value Reference Range Interpretation Comments NA (test code = 145 mmol/L 135-145 0227238361) K (test code = 3.6 mmol/L 3.5-5 2266229171) CL (test code = 111 mmol/L 98-108 H 2131589856) CO2 TOTAL (test code = 30 mmol/L 23-31 0776231008) AGAP (test code = 2-16 4578201900) BUN (test code = 39 mg/dL 7-23 H 6819570431) GLUCOSE (test code = 149 mg/dL 70-110 H 0866989970) CREATININE (test code = 2.05 mg/dL 0.5-1.04 H 9483853996) CALCIUM (test code = 8.2 mg/dL 8.6-10.6 L 4317074983) eGFR Calculation mL/min/1.73m2 (Non-) (test code = 9543682500) eGFR Calculation mL/min/1.73m2 () (test code = 9044749898) MYNOR (test code = MYNOR) Association of Glomerular Filtration Rate (GFR) and Staging of Kidney Disease* + --+ --+ ------+| GFR (mL/min/1.73 m2) ?| With Kidney Damage ?| ?Without Kidney Damage+ --------+ --------+ +| ?>90 ?| ?Stage one ?| ? Normal ?+ ---+ ---+ -------+| ?60-89 ?| ?Stage two ?| ? Decreased GFR ? + --+ --+ ------+| ?30-59 ?| ?Stage three ?| ? Stage three ? + --+ --+ ------+| ?15-29 ?| ?Stage four ? | ? Stage four ?+ ---+ ---+ -------+| ?<15 (or dialysis) ? ?| ?Stage five ? | ? Stage five ?+ ---+ ---+ -------+ *Each stage assumes the associated GFR level has been in effect for at least three months. ?Stages 1 to 5, with or without kidney disease, indicate chronic kidney disease. Notes: Determination of stages one and two (with eGFR >59mL/min/1.73 m2) requires estimation of kidney damage for at least three months as defined by structural or functional abnormalities of the kidney, manifested by either:Pathological abnormalities or Markers of kidney damage (including abnormalities in the composition of the blood or urine or abnormalities in imaging tests). Lab Interpretation Abnormal (test code = 39708-1) [facility]2020-12-03 10:11:00 Test Item Value Reference Range Interpretation Comments MAGNESIUM (test code = 4953140375) 2.2 mg/dL 1.7-2.4 Lab Interpretation (test code = Normal 08455-4) [facility]PH[facility]2020-12-03 10:11:00 Test Item Value Reference Range Interpretation Comments PHOSPHORUS (test code = 2016058889) 2.8 mg/dL 2.5-5 Lab Interpretation (test code = Normal 58820-0) [facility]for use with Heparin Drip)2020-09-15 09:53:00 Test Item Value Reference Range Interpretation Comments APTT Patient (test code See_Comment H [Au tomated message] = 3173-2) The system [employer] generated this result transmitted ref erence range: 26 - 36 Seconds. The reference range was not used to int erpret this result as normal/abnormal . Lab Interpretation (test Abnormal code = 64643-9) [facility] CenterCBC WITH [id number] 09:49:00 Test Item Value Reference Range Interpretation Comments WBC (test code = See_Comment [Automated 7390-2) message] The sy stem which generated this result transmitted reference range : 4.30 - 11.10 10*3/?L. The reference range was not used to interpret this result as normal/abnormal . RBC (test code = See_Comment L [Automated 789-8) message] The sy stem which generated this result transmitted reference range : 3.93 - 5.25 10*6/?L. The reference range was not used to interpret this result as normal/abnormal . HGB (test code = 10.4 g/dL 11.6-15 L 718-7) HCT (test code = 31.8 % 35.7-45.2 L 4544-3) MCV (test code = 95.5 fL 80.6-95.5 787-2) MCH (test code = 31.2 pg 25.9-32.8 785-6) MCHC (test code = 32.7 g/dL 31.6-35.1 786-4) RDW-SD (test code = 42.1 fL 39-49.9 56170-7) RDW-CV (test code = 11.9 % 12-15.5 L 788-0) PLT (test code = See_Comment L [Automated 777-3) message] The sy stem which generated this result transmitted reference range : 166 - 358 10*3/ ?L. The reference r pernell was not used to interpret this result as normal/abnormal . MPV (test code = 11.8 fL 9.5-12.9 82208-3) NRBC/100 WBC (test See_Comment [Automat ed code = 9008674198) message] The system which generated this result transmitted reference range : 0.0 - 10.0 /100 WBCs. The refer ence range was not u sed to interpret th is result as normal/abnormal . NRBC x10^3 (test code <0.01 See_Comment [Auto mated = 4218445905) message] The s ystem which generated this result transmitted reference range : 10*3/?L. The reference range was not used to interpret this result as normal/abnormal . GRAN MAT (NEUT) % 76.7 % (test code = 770-8) IMM GRAN % (test code 0.30 % = 5160788836) LYMPH % (test code = 13.9 % 736-9) MONO % (test code = 7.1 % 5905-5) EOS % (test code = 1.7 % 713-8) BASO % (test code = 0.3 % 706-2) GRAN MAT x10^3(ANC) 5.97 10*3/uL 1.88-7.09 (test code = 1986804225) IMM GRAN x10^3 (test <0.03 0-0.06 code = 9949101307) LYMPH x10^3 (test code 1.08 10*3/uL 1.32-3.29 L = 731-0) MONO x10^3 (test code 0.55 10*3/uL 0.33-0.92 = 742-7) EOS x10^3 (test code = 0.13 10*3/uL 0.03-0.39 711-2) BASO x10^3 (test code <0.03 0.01-0.07 = 704-7) Lab Interpretation Abnormal (test code = 32442-7) [facility] CenterMETHANOL2020-12-03 03:31:00 Test Item Value Reference Range Interpretation Comments METHANOL (test code = <5 mg/dL INTERP RETIVE INFORMATION: 5693-7) Methanol No the rapeutic range - Limit o f detection: 5 mg/dLToxic: G reater than 20 mg/dLToxic concentrations may cause intoxication, m etabolic acidosis, ocula r toxicity, PLASMA CENTER TECHNICIAN depression and fatality if patients do not receive medical treatme nt. See Compliance Stat ement B: [email or web address] /CSPerformed By: FLAKO vásquez[address] [address] ory Director: Sridevi Chambers MD [facility] CenterLAB ONLY COVID [id number] 03:07:00COVID DMT InterpretationInterpretation/Recommendations: Molecular NAAT Tests for Active Infection with the SARS-CoV-2 Virus: This result indicates that the patient has tested negative on one occasion for the SARS-CoV-2 virus that causes COVID-19 illness. This most likely indicates that the patient does not have an active infection with the SARS-CoV-2 virus. However, infection is not completely ruled out as the false negative rate for molecular NAAT testing using a nasopharyngeal sample can be up to 30%, mostly dependent on the timing of sample collection in relation to illness onset and any deficiencies in sampling techniques. If the patient continues to have persistent or worsening symptoms concerning for COVID-19 illness, a repeat NAAT test (PCR, Rapid ID Now, etc.) should be performed, at which time the SARS-CoV-2 virus - if present - may have reached a detectable viral load (usually peaking by the end of the first week of symptoms). Tests for IgM and/or IgG Antibodies to SARS-CoV-2 Virus: Testing for IgM and IgG antibodies 1-3 weeks after illness onset will indicate whether the patient has produced antibodies to the virus. At this time, it is not known if the production of antibodies - specifically IgG antibodies - indicates whether the patient is immune to future infections with the SARS-CoV-2 virus. ? ? Interp retation Result Comments: These interpretation comments are based upon aggregate COVID-19 test results pooled from [facility]. They apply to the following tests offered at [facility] and assume the acceptable specimen type(s) were used: A. Tests for the Identification of SARS-CoV-2 RNA (Molecular NAAT Tests): ?- SARS-CoV-2 PCR assays including [place] Aptima, [place] Fusion, Rocha RealTime, and [employer] Xpert Xpress. ?- SARS-CoV-2 Rapid ID NOW by the ID NOW assay. ? B. Tests for the Identification of SARS-CoV-2 Antibodies: ?- Chemiluminescent immunoassays including Access SARS-CoV-2 IgM (DXI 600), VITROS Mizd-UFHS-WqL-2 IgG (Vitros 5600 and Vitros 3600), and Rocha SARS-CoV-2 IgG (PROFESSOR OF EARLY CHILDHOOD EDUCATION I System). These interpretations are autopopulated into [facility] based on computerized algorithms matching an interpretation code to the patient's set of test results, and a clinical pathologist evaluates the comments for accuracy. However, these comments do not consider testing a patient may have hadoutside of the [facility] system. If results for COVID-19 infection continue to be negative in the contextof a suspected viral respiratory illness, it is possible the patient may have an infection with another respiratory virus. Influenza testing and a respiratory pathogen panel if clinically indicated maybe beneficial in this setting. If there continues to be a high degree of clinical suspicion for COVID- 19 illness despite multiple negative tests on nasopharyngeal specimens, then it may be necessary totest the patient for the SARS-CoV-2 virus using lower respiratory tract samples (such as sputum, bronchoalveolar lavage fluid (BAL), tracheal aspirate, etc.). ? [facility] LABORATORY SERVICESCOVID DvcjcddYJZY-LwP-6 Rapid ID NOW (no units) ? ? Date ? Value ? 09/10/2020 ? Not Detected ? [facility] (for use with Heparin Drip)2020-09-15 02:56:00 Test Item Value Reference Range Interpretation Comments APTT Patient (test code See_Comment H [Au tomated message] = 3173-2) The system [employer] generated this result transmitted ref erence range: 26 - 36 Seconds. The reference range was not used to int erpret this result as normal/abnormal . Lab Interpretation (test Abnormal code = 13525-3) [facility] GLUCOSE (AUTOMATED)2020-09-15 02:25:00 Test Item Value Reference Range Interpretation Comments POCT GLU (test code = 6165729281) 149 mg/dL 70-110 H Lab Interpretation (test code = Abnormal 34220-4) [facility] GLUCOSE (AUTOMATED)2020-09-14 22:55:00 Test Item Value Reference Range Interpretation Comments POCT GLU (test code = 9832901437) 162 mg/dL 70-110 H Lab Interpretation (test code = Abnormal 72999-4) [facility] (for use with Heparin Drip)2020-09-14 19:54:00 Test Item Value Reference Range Interpretation Comments APTT Patient (test code >150 See_Comment HH [Au tomated message] = 3173-2) The system [employer] generated this result transmitted ref erence range: 26 - 36 Seconds. The reference range was not used to int erpret this result as normal/abnormal . Lab Interpretation (test Abnormal code = 61689-1) [facility] GLUCOSE (AUTOMATED)2020-09-14 18:15:00 Test Item Value Reference Range Interpretation Comments POCT GLU (test code = 3424973142) 169 mg/dL 70-110 H Lab Interpretation (test code = Abnormal 78695-7) [facility] GLUCOSE (AUTOMATED)2020-09-14 15:04:00 Test Item Value Reference Range Interpretation Comments POCT GLU (test code = 6898757199) 147 mg/dL 70-110 H Lab Interpretation (test code = Abnormal 02822-8) [facility] D, [id number] 13:56:00 Test Item Value Reference Range Interpretation Comments VIT D 25OH (test code = 34 ng/mL 80 86938-0) MYNOR (test code = MYNOR) Deficiency: <20 ng/mLInsufficiency : 20-24 ng/mLOptimal: 25-80 ng/mL Lab Interpretation (test Normal code = 05530-9) [facility] CenterINTACT PTH CALCIUM [id number] 13:10:00 Test Item Value Reference Range Interpretation Comments PTH-INTACT (test code = 161.7 pg/mL H 4457375122) PTH-CA Interpretation Furthe r clinical (test code = 9053416688) mirna a needed for interpretation. CALCIUM (test code = 8.1 mg/dL 8.6-10.6 L 5784168234) Lab Interpretation (test Abnormal code = 58135-6) [facility] (for use with Heparin Drip)2020-09-14 12:09:00 Test Item Value Reference Range Interpretation Comments APTT Patient (test code >150 See_Comment HH [Au tomated message] = 3173-2) The system [employer] generated this result transmitted ref erence range: 26 - 36 Seconds. The reference range was not used to int erpret this result as normal/abnormal . Lab Interpretation (test Abnormal code = 64419-6) [facility] CenterCBC WITH [id number] 11:14:00 Test Item Value Reference Range Interpretation Comments WBC (test code = See_Comment [Automated 7690-2) message] The sy stem which generated this result transmitted reference range : 4.30 - 11.10 10*3/?L. The reference range was not used to interpret this result as normal/abnormal . RBC (test code = See_Comment L [Automated 789-8) message] The sy stem which generated this result transmitted reference range : 3.93 - 5.25 10*6/?L. The reference range was not used to interpret this result as normal/abnormal . HGB (test code = 10.6 g/dL 11.6-15 L 718-7) HCT (test code = 32.2 % 35.7-45.2 L 4544-3) MCV (test code = 94.4 fL 80.6-95.5 787-2) MCH (test code = 31.1 pg 25.9-32.8 785-6) MCHC (test code = 32.9 g/dL 31.6-35.1 786-4) RDW-SD (test code = 42.9 fL 39-49.9 46939-4) RDW-CV (test code = 12.4 % 12-15.5 788-0) PLT (test code = See_Comment L [Automated 777-3) message] The sy stem which generated this result transmitted reference range : 166 - 358 10*3/ ?L. The reference r pernell was not used to interpret this result as normal/abnormal . MPV (test code = 11.9 fL 9.5-12.9 73065-1) IPF % (test code = 4.5 % 1.3-7.7 Platelet count 6830757573) measured by fluorescence method. NRBC/100 WBC (test See_Comment [Automat ed code = 4592299008) message] The system which generated this result transmitted reference range : 0.0 - 10.0 /100 WBCs. The refer ence range was not u sed to interpret th is result as normal/abnormal . NRBC x10^3 (test code <0.01 See_Comment [Auto mated = 3076364710) message] The s ystem which generated this result transmitted reference range : 10*3/?L. The reference range was not used to interpret this result as normal/abnormal . GRAN MAT (NEUT) % 75.1 % (test code = 770-8) IMM GRAN % (test code 0.20 % = 6264325871) LYMPH % (test code = 15.9 % 736-9) MONO % (test code = 7.6 % 5905-5) EOS % (test code = 1.1 % 713-8) BASO % (test code = 0.1 % 706-2) GRAN MAT x10^3(ANC) 6.35 10*3/uL 1.88-7.09 (test code = 3093278506) IMM GRAN x10^3 (test <0.03 0-0.06 code = 0216439139) LYMPH x10^3 (test code 1.34 10*3/uL 1.32-3.29 = 731-0) MONO x10^3 (test code 0.64 10*3/uL 0.33-0.92 = 742-7) EOS x10^3 (test code = 0.09 10*3/uL 0.03-0.39 711-2) BASO x10^3 (test code <0.03 0.01-0.07 = 704-7) Lab Interpretation Abnormal (test code = 88020-1) [facility] METABOLIC PANEL (NA, K, CL, CO2, GLUCOSE, BUN, CREATININE, CA)2020-09-14 11:10:00 Test Item Value Reference Range Interpretation Comments NA (test code = 145 mmol/L 135-145 0042147662) K (test code = 4.1 mmol/L 3.5-5 8413066333) CL (test code = 112 mmol/L 98-108 H 4346108017) CO2 TOTAL (test code = 27 mmol/L 23-31 6914660758) AGAP (test code = 2-16 1316406862) BUN (test code = 45 mg/dL 7-23 H 3350102676) GLUCOSE (test code = 173 mg/dL 70-110 H 2419747905) CREATININE (test code = 2.89 mg/dL 0.5-1.04 H 8936245045) CALCIUM (test code = 8.1 mg/dL 8.6-10.6 L 9722364199) eGFR Calculation mL/min/1.73m2 (Non-) (test code = 7403148584) eGFR Calculation mL/min/1.73m2 () (test code = 3563214645) MYNOR (test code = MYNOR) Association of Glomerular Filtration Rate (GFR) and Staging of Kidney Disease* + --+ --+ ------+| GFR (mL/min/1.73 m2) ?| With Kidney Damage ?| ?Without Kidney Damage+ --------+ --------+ +| ?>90 ?| ?Stage one ?| ? Normal ?+ ---+ ---+ -------+| ?60-89 ?| ?Stage two ?| ? Decreased GFR ? + --+ --+ ------+| ?30-59 ?| ?Stage three ?| ? Stage three ? + --+ --+ ------+| ?15-29 ?| ?Stage four ? | ? Stage four ?+ ---+ ---+ -------+| ?<15 (or dialysis) ? ?| ?Stage five ? | ? Stage five ?+ ---+ ---+ -------+ *Each stage assumes the associated GFR level has been in effect for at least three months. ?Stages 1 to 5, with or without kidney disease, indicate chronic kidney disease. Notes: Determination of stages one and two (with eGFR >59mL/min/1.73 m2) requires estimation of kidney damage for at least three months as defined by structural or functional abnormalities of the kidney, manifested by either:Pathological abnormalities or Markers of kidney damage (including abnormalities in the composition of the blood or urine or abnormalities in imaging tests). Lab Interpretation Abnormal (test code = 71047-5) [facility]2020-12-02 11:10:00 Test Item Value Reference Range Interpretation Comments MAGNESIUM (test code = 8370921809) 1.9 mg/dL 1.7-2.4 Lab Interpretation (test code = Normal 94516-9) [facility] CenterPHOSPHORUS2020-12-02 11:10:00 Test Item Value Reference Range Interpretation Comments PHOSPHORUS (test code = 8609759712) 2.6 mg/dL 2.5-5 Lab Interpretation (test code = Normal 63017-9) [facility] CenterTROPONIN [id number] 10:52:00 Test Item Value Reference Range Interpretation Comments TROPONIN I (test 2.800 ng/mL See_Comment H [Automated code = 4377719906) message] The system which generated this result transmitted reference range : <=0.034. The reference range was not used to interpret this result as normal/abnormal . MYNOR (test code = Equal or Less than MYNOR) 0.034 ng/ml---Normal ?Note: Cardiac troponin begins to rise 3-4 hours after the onset of ischemia. Repeat in 4-6 hours if the sample was drawn within 3-4 hours of the onset of the symptom and found normal. Between 0.035 and 0.120 ng/mL--- Borderline. Questionable myocardial injury or necrosis ? ?Note: Serial measurement may be necessary to confirm or exclude the diagnosis of myocardial injury or necrosis; Clinical correlation (symptoms, EKGs, imaging studies, and others) required; Repeat in 4-6 hours if clinically indicated. ? Equal or Higher than 0.121 ng/mL---Abnormal. Myocardial Injury or Necrosis Likely ? Biotin has been reported to cause a negative bias, interpret results relative to patient's use of biotin. ? Lab Interpretation Abnormal (test code = 18140-6) [facility] CenterTROPONIN [id number] 04:51:00 Test Item Value Reference Range Interpretation Comments TROPONIN I (test 3.250 ng/mL See_Comment H [Automated code = 3231839627) message] The system which generated this result transmitted reference range : <=0.034. The reference range was not used to interpret this result as normal/abnormal . MYNOR (test code = Equal or Less than MYNOR) 0.034 ng/ml---Normal ?Note: Cardiac troponin begins to rise 3-4 hours after the onset of ischemia. Repeat in 4-6 hours if the sample was drawn within 3-4 hours of the onset of the symptom and found normal. Between 0.035 and 0.120 ng/mL--- Borderline. Questionable myocardial injury or necrosis ? ?Note: Serial measurement may be necessary to confirm or exclude the diagnosis of myocardial injury or necrosis; Clinical correlation (symptoms, EKGs, imaging studies, and others) required; Repeat in 4-6 hours if clinically indicated. ? Equal or Higher than 0.121 ng/mL---Abnormal. Myocardial Injury or Necrosis Likely ? Biotin has been reported to cause a negative bias, interpret results relative to patient's use of biotin. ? Lab Interpretation Abnormal (test code = 25116-2) [facility] CenterETHYLENE [id number] 04:37:00 Test Item Value Reference Range Interpretation Comments ETHYLENE GLY (test <5 mg/dL THERAPEUT IC RANGE: Ethylene code = 5646-5) Glycol Thera peutic: No therapeutic ran ge ? Assay detecti on limit 5 mg/dL. Potentia lly toxic: Greater than 20 mg/dL. Toxic concentra tions may cause intoxicat ion, PLASMA CENTER TECHNICIAN depression, met abolic acidosis, renal damage and hypocalcemia. E thylene glycol is extre maura toxic. Ingestion can b e fatal if patients do not receive immediate medic al treatment. INTE RPRETIVE INFORMATION: Et hylene Glycol Test de veloped and characteristics determined by [facility]. See Compliance Stat ement B: [employer]com/CSP erformed By: [facility] [address] [place], [place] [address]Aepnxrr [facility] Director: Sridevi Chambers MD [facility] CenterTOKETTERING [facility] PROTEIN, URINE [id number] 03:16:00 Test Item Value Reference Range Interpretation Comments T. PROT U (test code 37 mg/dL = 2888-6) MYNOR (test code = Random Urine Total MYNOR) Protein Reference Ranges Random Specimen: ? Less than 10 mg/dLFirst Morning Specimen: ? ?Less than 20 mg/dL ? [facility] CenterCREAT[facility], URINE [id number] 03:16:00 Test Item Value Reference Range Interpretation Comments CREAT U (test code = 0204936857) 29.1 mg/dL [facility]OL[facility] PANEL (NA, K, CL, CO2, GLUCOSE, BUN, CREATININE, CA)2020-09-14 03:15:00 Test Item Value Reference Range Interpretation Comments NA (test code = 144 mmol/L 135-145 3412817806) K (test code = 3.9 mmol/L 3.5-5 4303702097) CL (test code = 109 mmol/L 98-108 H 8012985740) CO2 TOTAL (test code = 33 mmol/L 23-31 H 9415187657) AGAP (test code = 2-16 5510043089) BUN (test code = 48 mg/dL 7-23 H 4740750869) GLUCOSE (test code = 154 mg/dL 70-110 H 7305751713) CREATININE (test code = 3.23 mg/dL 0.5-1.04 H 9387135056) CALCIUM (test code = 7.7 mg/dL 8.6-10.6 L 7903084622) eGFR Calculation mL/min/1.73m2 (Non-) (test code = 5938316673) eGFR Calculation mL/min/1.73m2 () (test code = 7109005547) MYNOR (test code = MYNOR) Association of Glomerular Filtration Rate (GFR) and Staging of Kidney Disease* + --+ --+ ------+| GFR (mL/min/1.73 m2) ?| With Kidney Damage ?| ?Without Kidney Damage+ --------+ --------+ +| ?>90 ?| ?Stage one ?| ? Normal ?+ ---+ ---+ -------+| ?60-89 ?| ?Stage two ?| ? Decreased GFR ? + --+ --+ ------+| ?30-59 ?| ?Stage three ?| ? Stage three ? + --+ --+ ------+| ?15-29 ?| ?Stage four ? | ? Stage four ?+ ---+ ---+ -------+| ?<15 (or dialysis) ? ?| ?Stage five ? | ? Stage five ?+ ---+ ---+ -------+ *Each stage assumes the associated GFR level has been in effect for at least three months. ?Stages 1 to 5, with or without kidney disease, indicate chronic kidney disease. Notes: Determination of stages one and two (with eGFR >59mL/min/1.73 m2) requires estimation of kidney damage for at least three months as defined by structural or functional abnormalities of the kidney, manifested by either:Pathological abnormalities or Markers of kidney damage (including abnormalities in the composition of the blood or urine or abnormalities in imaging tests). Lab Interpretation Abnormal (test code = 92012-8) [facility] CenterTHYROID STIMULATING [id number] 22:38:00 Test Item Value Reference Range Interpretation Comments TSH (test code = See_Comment Biotin has been 8444694877) reported to cau se a negative bias, interpret resul ts relative to pat allie's use of biotin. [Automated mess age] The system [employer] generated this result transmitted ref erence range: 0.45 - 4 .70 mIU/L. The refe rence range was not u sed to interpret this result as normal/abnor mal. Lab Interpretation (test Normal code = 35434-4) [facility] GLUCOSE (AUTOMATED)2020-09-13 22:36:00 Test Item Value Reference Range Interpretation Comments POCT GLU (test code = 1570903623) 136 mg/dL 70-110 H Lab Interpretation (test code = Abnormal 07318-3) [facility] CenterFREE [id number] 22:23:00 Test Item Value Reference Range Interpretation Comments FREE T4 (test code = See_Comment [Autom ated message] 5206365964) The system [employer] generated this result transmitted ref erence range: 0.78 - 2 .20 ng/dL:. The ref erence range was not u sed to interpret this result as normal/abnor mal. Lab Interpretation (test Normal code = 63182-5) [facility] GLUCOSE (AUTOMATED)2020-09-13 18:05:00 Test Item Value Reference Range Interpretation Comments POCT GLU (test code = 1047388366) 227 mg/dL 70-110 H Lab Interpretation (test code = Abnormal 97881-8) [facility] CenterVancomycin Random [id number] 12:41:00 Test Item Value Reference Range Interpretation Comments VANCO RANDOM (test code = 12.7 ug/mL 8971366334) [facility] (NA, K, CL, CO2, GLUCOSE, BUN, CREATININE, CA)2020-09-13 12:36:00 Test Item Value Reference Range Interpretation Comments NA (test code = 141 mmol/L 135-145 4644775896) K (test code = 3.4 mmol/L 3.5-5 L 9901484662) CL (test code = 106 mmol/L 98-108 9992250457) CO2 TOTAL (test code = 34 mmol/L 23-31 H 7984045737) AGAP (test code = 2-16 L 1258263915) BUN (test code = 55 mg/dL 7-23 H 8043483882) GLUCOSE (test code = 196 mg/dL 70-110 H 8668326228) CREATININE (test code = 3.88 mg/dL 0.5-1.04 H 5405063565) CALCIUM (test code = 7.5 mg/dL 8.6-10.6 L 3808301725) eGFR Calculation mL/min/1.73m2 (Non-) (test code = 9390835971) eGFR Calculation mL/min/1.73m2 () (test code = 3839272365) MYNOR (test code = MYNOR) Association of Glomerular Filtration Rate (GFR) and Staging of Kidney Disease* + --+ --+ ------+| GFR (mL/min/1.73 m2) ?| With Kidney Damage ?| ?Without Kidney Damage+ --------+ --------+ +| ?>90 ?| ?Stage one ?| ? Normal ?+ ---+ ---+ -------+| ?60-89 ?| ?Stage two ?| ? Decreased GFR ? + --+ --+ ------+| ?30-59 ?| ?Stage three ?| ? Stage three ? + --+ --+ ------+| ?15-29 ?| ?Stage four ? | ? Stage four ?+ ---+ ---+ -------+| ?<15 (or dialysis) ? ?| ?Stage five ? | ? Stage five ?+ ---+ ---+ -------+ *Each stage assumes the associated GFR level has been in effect for at least three months. ?Stages 1 to 5, with or without kidney disease, indicate chronic kidney disease. Notes: Determination of stages one and two (with eGFR >59mL/min/1.73 m2) requires estimation of kidney damage for at least three months as defined by structural or functional abnormalities of the kidney, manifested by either:Pathological abnormalities or Markers of kidney damage (including abnormalities in the composition of the blood or urine or abnormalities in imaging tests). Lab Interpretation Abnormal (test code = 21328-2) [facility] CenterMAG[facility]IUM2020-12-01 12:36:00 Test Item Value Reference Range Interpretation Comments MAGNESIUM (test code = 2196161781) 2.4 mg/dL 1.7-2.4 Lab Interpretation (test code = Normal 14737-7) [facility] CenterPHOSPHORUS2020-12-01 12:36:00 Test Item Value Reference Range Interpretation Comments PHOSPHORUS (test code = 8387419207) 3.1 mg/dL 2.5-5 Lab Interpretation (test code = Normal 13510-3) [facility] WITH [id number] 11:53:00 Test Item Value Reference Range Interpretation Comments WBC (test code = See_Comment [Automated 6690-2) message] The sy stem which generated this result transmitted reference range : 4.30 - 11.10 10*3/?L. The reference range was not used to interpret this result as normal/abnormal . RBC (test code = See_Comment L [Automated 789-8) message] The sy stem which generated this result transmitted reference range : 3.93 - 5.25 10*6/?L. The reference range was not used to interpret this result as normal/abnormal . HGB (test code = 10.9 g/dL 11.6-15 L 718-7) HCT (test code = 32.8 % 35.7-45.2 L 4544-3) MCV (test code = 94.0 fL 80.6-95.5 787-2) MCH (test code = 31.2 pg 25.9-32.8 785-6) MCHC (test code = 33.2 g/dL 31.6-35.1 786-4) RDW-SD (test code = 43.3 fL 39-49.9 68632-8) RDW-CV (test code = 12.6 % 12-15.5 788-0) PLT (test code = See_Comment L [Automated 777-3) message] The sy stem which generated this result transmitted reference range : 166 - 358 10*3/ ?L. The reference r pernell was not used to interpret this result as normal/abnormal . MPV (test code = 12.0 fL 9.5-12.9 79949-3) NRBC/100 WBC (test See_Comment [Automat ed code = 3327436694) message] The system which generated this result transmitted reference range : 0.0 - 10.0 /100 WBCs. The refer ence range was not u sed to interpret th is result as normal/abnormal . NRBC x10^3 (test code <0.01 See_Comment [Auto mated = 5147494761) message] The s ystem which generated this result transmitted reference range : 10*3/?L. The reference range was not used to interpret this result as normal/abnormal . GRAN MAT (NEUT) % 76.4 % (test code = 770-8) IMM GRAN % (test code 0.50 % = 8878698592) LYMPH % (test code = 13.6 % 736-9) MONO % (test code = 8.8 % 5905-5) EOS % (test code = 0.5 % 713-8) BASO % (test code = 0.2 % 706-2) GRAN MAT x10^3(ANC) 8.12 10*3/uL 1.88-7.09 H (test code = 0484559008) IMM GRAN x10^3 (test 0.05 10*3/uL 0-0.06 code = 6892287860) LYMPH x10^3 (test code 1.45 10*3/uL 1.32-3.29 = 731-0) MONO x10^3 (test code 0.94 10*3/uL 0.33-0.92 H = 742-7) EOS x10^3 (test code = 0.05 10*3/uL 0.03-0.39 711-2) BASO x10^3 (test code <0.03 0.01-0.07 = 704-7) Lab Interpretation Abnormal (test code = 53770-4) [facility] GLUCOSE (AUTOMATED)2020-09-13 06:36:00 Test Item Value Reference Range Interpretation Comments POCT GLU (test code = 0931347578) 244 mg/dL 70-110 H Lab Interpretation (test code = Abnormal 15641-2) [facility] GLUCOSE (AUTOMATED)2020-09-12 22:40:00 Test Item Value Reference Range Interpretation Comments POCT GLU (test code = 2198877227) 216 mg/dL 70-110 H Lab Interpretation (test code = Abnormal 83724-7) [facility] (NA, K, CL, CO2, GLUCOSE, BUN, CREATININE, CA)2020-09-12 20:50:00 Test Item Value Reference Range Interpretation Comments NA (test code = 137 mmol/L 135-145 0394653269) K (test code = 3.8 mmol/L 3.5-5 4770910911) CL (test code = 101 mmol/L 98-108 0217852792) CO2 TOTAL (test code = 30 mmol/L 23-31 3071506581) AGAP (test code = 2-16 2781951313) BUN (test code = 61 mg/dL 7-23 H 7183400875) GLUCOSE (test code = 250 mg/dL 70-110 H 3699554872) CREATININE (test code = 4.53 mg/dL 0.5-1.04 H 0546986650) CALCIUM (test code = 7.4 mg/dL 8.6-10.6 L 7065363549) eGFR Calculation mL/min/1.73m2 (Non-) (test code = 6344781620) eGFR Calculation mL/min/1.73m2 () (test code = 9588709181) MYNOR (test code = MYNOR) Association of Glomerular Filtration Rate (GFR) and Staging of Kidney Disease* + --+ --+ ------+| GFR (mL/min/1.73 m2) ?| With Kidney Damage ?| ?Without Kidney Damage+ --------+ --------+ +| ?>90 ?| ?Stage one ?| ? Normal ?+ ---+ ---+ -------+| ?60-89 ?| ?Stage two ?| ? Decreased GFR ? + --+ --+ ------+| ?30-59 ?| ?Stage three ?| ? Stage three ? + --+ --+ ------+| ?15-29 ?| ?Stage four ? | ? Stage four ?+ ---+ ---+ -------+| ?<15 (or dialysis) ? ?| ?Stage five ? | ? Stage five ?+ ---+ ---+ -------+ *Each stage assumes the associated GFR level has been in effect for at least three months. ?Stages 1 to 5, with or without kidney disease, indicate chronic kidney disease. Notes: Determination of stages one and two (with eGFR >59mL/min/1.73 m2) requires estimation of kidney damage for at least three months as defined by structural or functional abnormalities of the kidney, manifested by either:Pathological abnormalities or Markers of kidney damage (including abnormalities in the composition of the blood or urine or abnormalities in imaging tests). Lab Interpretation Abnormal (test code = 82115-5) [facility] CenterAC [facility] 20 + LACTIC [id number] 18:39:00 Test Item Value Reference Range Interpretation Comments PH (test code = 2) 7.35-7.45 PCO2 (test code = See_Comment [Automat ed 9438313483) message] The sy stem which generated this result transmitted reference range : 35 - 45 mmHg. The reference range was not used to interpret this result as normal/abnormal . PO2 (test code = See_Comment H [Automated 9696620542) message] The sy stem which generated this result transmitted reference range : 80 - 100 mmHg. The reference range was not used to interpret this result as normal/abnormal . HCO3 (test code = See_Comment H [Automate d 3819011794) message] The sy stem which generated this result transmitted reference range : 22 - 26 mEq/L. The reference range was not used to interpret this result as normal/abnormal . BE (test code = See_Comment [Automated 1600002596) message] The sy stem which generated this result transmitted reference range : -3.0 - 3.0 mEq/ L. The reference r pernell was not used to interpret this result as normal/abnormal . THB (test code = 11.7 g/dL 12-16 L 4500488000) %O2HB (test code = 98.2 % 94-99 3648360734) %COHB ART (test code = 0.3 % 0-1.5 0803619477) %METHB ART (test code = 0.1 % 0.4-1.5 L 4123977238) VOL%O2 ART (test code = 16.4 % 15-23 3684192479) NA (test code = 142 mmol/L 135-145 6514654761) K+ (test code = 3.9 mmol/L 3.5-5 2032230542) AC CA IONZ (test code = 4.10 mg/dL 4.5-5.3 L 0388966858) GLUCOSE (test code = 269 mg/dL 70-110 H 3639297016) LACTIC ACID (test code 2.25 mmol/L = 2991523994) Lab Interpretation Abnormal (test code = 51756-4) [facility]2020-09-12 18:01:00 Test Item Value Reference Range Interpretation Comments POCT GLU (test code = 4482060582) 209 mg/dL 70-110 H Lab Interpretation (test code = Abnormal 41687-7) [facility] CenterURINE [id number] 16:04:00 Test Item Value Reference Range Interpretation Comments URINE CULTURE (test code <10,000 CFU/mL = 630-4) Gram-Positive Cocci [facility]2020-09-12 14:01:00 Test Item Value Reference Range Interpretation Comments POCT GLU (test code = 6138941581) 182 mg/dL 70-110 H Lab Interpretation (test code = Abnormal 97640-3) [facility] 20 + LACTIC [id number] 12:30:00 Test Item Value Reference Range Interpretation Comments PH (test code = 2) 7.35-7.45 PCO2 (test code = See_Comment [Automat ed 3641449030) message] The sy stem which generated this result transmitted reference range : 35 - 45 mmHg. The reference range was not used to interpret this result as normal/abnormal . PO2 (test code = See_Comment L [Automated 6105068430) message] The sy stem which generated this result transmitted reference range : 80 - 100 mmHg. The reference range was not used to interpret this result as normal/abnormal . HCO3 (test code = See_Comment [Automate d 7945165614) message] The sy stem which generated this result transmitted reference range : 22 - 26 mEq/L. The reference range was not used to interpret this result as normal/abnormal . BE (test code = See_Comment [Automated 9187502612) message] The sy stem which generated this result transmitted reference range : -3.0 - 3.0 mEq/ L. The reference r pernell was not used to interpret this result as normal/abnormal . THB (test code = 11.7 g/dL 12-16 L 6334155319) %O2HB (test code = 91.3 % 94-99 L 4636855682) %COHB ART (test code = 0.3 % 0-1.5 7958720099) %METHB ART (test code = 0.3 % 0.4-1.5 L 6687242375) VOL%O2 ART (test code = 15.0 % 15-23 7202992216) NA (test code = 141 mmol/L 135-145 2238795243) K+ (test code = 3.9 mmol/L 3.5-5 6750636853) AC CA IONZ (test code = 4.20 mg/dL 4.5-5.3 L 5411739288) GLUCOSE (test code = 190 mg/dL 70-110 H 1075419845) LACTIC ACID (test code 1.35 mmol/L = 2069618859) Lab Interpretation Abnormal (test code = 61601-2) [facility] WITH [id number] 10:21:00 Test Item Value Reference Range Interpretation Comments WBC (test code = See_Comment H [Automated 6690-2) message] The system which generated this result transmit romain reference range : 4.30 - 11.10 10*3/?L. The reference range was not used to interpret this result as normal/abnormal . RBC (test code = See_Comment L [Automated 789-8) message] The system which generated this result transmit romain reference range : 3.93 - 5.25 10*6/?L. The reference range was not used to interpret this result as normal/abnormal . HGB (test code = 10.9 g/dL 11.6-15 L 718-7) HCT (test code = 31.5 % 35.7-45.2 L 4544-3) MCV (test code = 92.1 fL 80.6-95.5 787-2) MCH (test code = 31.9 pg 25.9-32.8 785-6) MCHC (test code = 34.6 g/dL 31.6-35.1 786-4) RDW-SD (test code = 41.0 fL 39-49.9 61340-9) RDW-CV (test code = 12.1 % 12-15.5 788-0) PLT (test code = See_Comment L [Automated 777-3) message] The system which generated this result transmit romain reference range : 166 - 358 10*3/ ?L. The reference range was not u sed to interpret th is result as normal/abnormal . MPV (test code = 11.4 fL 9.5-12.9 97876-8) NRBC/100 WBC (test See_Comment [Automat ed code = 8732173587) message] The system which generated this result transmit romain reference range : 0.0 - 10.0 /100 WBCs. The reference range was not used to interpret this result as normal/abnormal . NRBC x10^3 (test code <0.01 See_Comment [Auto mated = 7584264210) message] The system which generated this result transmit romain reference range : 10*3/?L. The reference range was not used to interpret this result as normal/abnormal . GRAN MAT (NEUT) % 80.3 % (test code = 770-8) IMM GRAN % (test code 0.40 % = 6310681895) LYMPH % (test code = 8.8 % 736-9) MONO % (test code = 10.2 % 5905-5) EOS % (test code = 0.1 % 713-8) BASO % (test code = 0.2 % 706-2) GRAN MAT x10^3(ANC) 13.20 10*3/uL 1.88-7.09 H (test code = 2396568688) IMM GRAN x10^3 (test 0.07 10*3/uL 0-0.06 H code = 9548470514) LYMPH x10^3 (test code 1.45 10*3/uL 1.32-3.29 = 731-0) MONO x10^3 (test code 1.67 10*3/uL 0.33-0.92 H = 742-7) EOS x10^3 (test code = <0.03 0.03-0.39 L 711-2) BASO x10^3 (test code 0.03 10*3/uL 0.01-0.07 = 704-7) BASO STIPPLING (test Present A code = 703-9) BANDS (test code = Increased A 5330814687) Lab Interpretation Abnormal (test code = 29237-8) [facility] CenterVancom[facility] Random [id number] 09:53:00 Test Item Value Reference Range Interpretation Comments VANCO RANDOM (test code = 8.2 ug/mL 0714745774) [facility]OL[facility] (NA, K, CL, CO2, GLUCOSE, BUN, CREATININE, CA)2020-09-12 09:48:00 Test Item Value Reference Range Interpretation Comments NA (test code = 139 mmol/L 135-145 8521581283) K (test code = 4.3 mmol/L 3.5-5 Slight 1303453616) hemolysis CL (test code = 102 mmol/L 98-108 0998621288) CO2 TOTAL (test code 26 mmol/L 23-31 = 8266403030) AGAP (test code = 2-16 1167410991) BUN (test code = 64 mg/dL 7-23 H Slight 4645731352) hemolysis GLUCOSE (test code = 127 mg/dL 70-110 H 3146243916) CREATININE (test code 4.08 mg/dL 0.5-1.04 H = 1911882792) CALCIUM (test code = 7.4 mg/dL 8.6-10.6 L 8376896468) eGFR Calculation mL/min/1.73m2 (Non-) (test code = 1566200752) eGFR Calculation mL/min/1.73m2 () (test code = 0015353061) MYNOR (test code = MYNOR) Association of Glomerular Filtration Rate (GFR) and Staging of Kidney Disease* + -----+ --------+ +| GFR (mL/min/1.73 m2) ?| With Kidney Damage ?| ?Without Kidney Damage+ +------- +---- --+| ?>90 ?| ?Stage one ?| ? Normal ?+ ------+ ---------+--------- +| ?60-89 ?| ?Stage two ?| ? Decreased GFR ? + -----+ --------+ +| ?30-59 ?| ?Stage three ?| ? Stage three ? + -----+ --------+ +| ?15-29 ?| ?Stage four ? | ? Stage four ?+ ------+ ---------+--------- +| ?<15 (or dialysis) ? ?| ?Stage five ? | ? Stage five ?+ ------+ ---------+--------- + *Each stage assumes the associated GFR level has been in effect for at least three months. ?Stages 1 to 5, with or without kidney disease, indicate chronic kidney disease. Notes: Determination of stages one and two (with eGFR >59mL/min/1.73 m2) requires estimation of kidney damage for at least three months as defined by structural or functional abnormalities of the kidney, manifested by either:Pathological abnormalities or Markers of kidney damage (including abnormalities in the composition of the blood or urine or abnormalities in imaging tests). Lab Interpretation Abnormal (test code = 28448-9) [facility]2020-[facility]-30 09:48:00 Test Item Value Reference Range Interpretation Comments MAGNESIUM (test code = 8776928033) 1.4 mg/dL 1.7-2.4 L Lab Interpretation (test code = Abnormal 05831-9) [facility]2020-11-30 09:48:00 Test Item Value Reference Range Interpretation Comments PHOSPHORUS (test code = 7678210163) 3.0 mg/dL 2.5-5 Lab Interpretation (test code = Normal 90785-8) [facility] 20 + LACTIC [id number] 08:16:00 Test Item Value Reference Range Interpretation Comments PH (test code = 2) 7.35-7.45 H PCO2 (test code = See_Comment [Automat ed 0292655241) message] The sy stem which generated this result transmitted reference range : 35 - 45 mmHg. The reference range was not used to interpret this result as normal/abnormal . PO2 (test code = See_Comment H [Automated 6267903669) message] The sy stem which generated this result transmitted reference range : 80 - 100 mmHg. The reference range was not used to interpret this result as normal/abnormal . HCO3 (test code = See_Comment H [Automate d 9861391640) message] The sy stem which generated this result transmitted reference range : 22 - 26 mEq/L. The reference range was not used to interpret this result as normal/abnormal . BE (test code = See_Comment H [Automated 5981815912) message] The sy stem which generated this result transmitted reference range : -3.0 - 3.0 mEq/ L. The reference r pernell was not used to interpret this result as normal/abnormal . THB (test code = 12.4 g/dL 12-16 4412118013) %O2HB (test code = 98.0 % 94-99 1884361442) %COHB ART (test code = 0.3 % 0-1.5 5762890404) %METHB ART (test code = 0.1 % 0.4-1.5 L 6600501328) VOL%O2 ART (test code = 17.3 % 15-23 7657541006) NA (test code = 141 mmol/L 135-145 7766187386) K+ (test code = 3.9 mmol/L 3.5-5 7530980760) AC CA IONZ (test code = 4.50 mg/dL 4.5-5.3 1315840438) GLUCOSE (test code = 138 mg/dL 70-110 H 6414473437) LACTIC ACID (test code 2.15 mmol/L = 2999657238) Lab Interpretation Abnormal (test code = 55893-8) [facility] GLUCOSE (AUTOMATED)2020-09-12 04:54:00 Test Item Value Reference Range Interpretation Comments POCT GLU (test code = 4726677428) 51 mg/dL 70-110 L Lab Interpretation (test code = Abnormal 91039-0) [facility] GLUCOSE (AUTOMATED)2020-09-12 04:54:00 Test Item Value Reference Range Interpretation Comments POCT GLU (test code = 1255592301) 139 mg/dL 70-110 H Lab Interpretation (test code = Abnormal 04160-6) [facility] GLUCOSE (AUTOMATED)2020-09-12 04:54:00 Test Item Value Reference Range Interpretation Comments POCT GLU (test code = 1775654734) 124 mg/dL 70-110 H Lab Interpretation (test code = Abnormal 66516-8) [facility]2020-[facility] 03:26:00 Test Item Value Reference Range Interpretation Comments ALBUMIN (test code = 9921664524) 2.7 g/dL 3.5-5 L Lab Interpretation (test code = Abnormal 52477-7) [facility] + LACTIC [id number] 02:55:00 Test Item Value Reference Range Interpretation Comments PH (test code = 2) 7.35-7.45 H PCO2 (test code = See_Comment L [Automat ed 2479907438) message] The sy stem which generated this result transmitted reference range : 35 - 45 mmHg. The reference range was not used to interpret this result as normal/abnormal . PO2 (test code = See_Comment H [Automated 5062524789) message] The sy stem which generated this result transmitted reference range : 80 - 100 mmHg. The reference range was not used to interpret this result as normal/abnormal . HCO3 (test code = See_Comment [Automate d 4845276941) message] The sy stem which generated this result transmitted reference range : 22 - 26 mEq/L. The reference range was not used to interpret this result as normal/abnormal . BE (test code = See_Comment [Automated 1123075361) message] The sy stem which generated this result transmitted reference range : -3.0 - 3.0 mEq/ L. The reference r pernell was not used to interpret this result as normal/abnormal . THB (test code = 10.6 g/dL 12-16 L 1331851808) %O2HB (test code = 97.1 % 94-99 7533136659) %COHB ART (test code = 0.2 % 0-1.5 1986438511) %METHB ART (test code = 0.3 % 0.4-1.5 L 5558203145) VOL%O2 ART (test code = 14.6 % 15-23 L 0260889973) NA (test code = 142 mmol/L 135-145 6401818214) K+ (test code = 3.9 mmol/L 3.5-5 6800087058) AC CA IONZ (test code = 4.00 mg/dL 4.5-5.3 L 0953168461) GLUCOSE (test code = 54 mg/dL 70-110 L 4765659533) LACTIC ACID (test code 4.53 mmol/L = 8722933743) Lab Interpretation Abnormal (test code = 80401-0) [facility] + LACTIC [id number] 23:11:00 Test Item Value Reference Range Interpretation Comments PH (test code = 2) 7.35-7.45 PCO2 (test code = See_Comment L [Automat ed 1199424530) message] The sy stem which generated this result transmitted reference range : 35 - 45 mmHg. The reference range was not used to interpret this result as normal/abnormal . PO2 (test code = See_Comment [Automated 9452638416) message] The sy stem which generated this result transmitted reference range : 80 - 100 mmHg. The reference range was not used to interpret this result as normal/abnormal . HCO3 (test code = See_Comment L [Automate d 5319933300) message] The sy stem which generated this result transmitted reference range : 22 - 26 mEq/L. The reference range was not used to interpret this result as normal/abnormal . BE (test code = See_Comment L [Automated 2408257064) message] The sy stem which generated this result transmitted reference range : -3.0 - 3.0 mEq/ L. The reference r pernell was not used to interpret this result as normal/abnormal . THB (test code = 10.4 g/dL 12-16 L 3131281179) %O2HB (test code = 96.9 % 94-99 3705865853) %COHB ART (test code = 0.2 % 0-1.5 4108345309) %METHB ART (test code = 0.3 % 0.4-1.5 L 9635097831) VOL%O2 ART (test code = 14.3 % 15-23 L 8371107266) NA (test code = 142 mmol/L 135-145 8303723825) K+ (test code = 3.9 mmol/L 3.5-5 3601941257) AC CA IONZ (test code = 4.10 mg/dL 4.5-5.3 L 0588756699) GLUCOSE (test code = 159 mg/dL 70-110 H 7438152547) LACTIC ACID (test code 7.50 mmol/L = 1075368808) Lab Interpretation Abnormal (test code = 17222-4) [facility] 22:30:00 Test Item Value Reference Range Interpretation Comments MAGNESIUM (test code = 2865822318) 1.6 mg/dL 1.7-2.4 L Lab Interpretation (test code = Abnormal 37573-9) [facility] (NA, K, CL, CO2, GLUCOSE, BUN, CREATININE, CA)2020-09-11 19:39:00 Test Item Value Reference Range Interpretation Comments NA (test code = 142 mmol/L 135-145 9771303477) K (test code = 4.0 mmol/L 3.5-5 7172337829) CL (test code = 103 mmol/L 98-108 2563991979) CO2 TOTAL (test code = 13 mmol/L 23-31 L 9290570473) AGAP (test code = 2-16 H 0217643929) BUN (test code = 56 mg/dL 7-23 H 0700121474) GLUCOSE (test code = 240 mg/dL 70-110 H 5205725632) CREATININE (test code = 3.86 mg/dL 0.5-1.04 H 0576927929) CALCIUM (test code = 7.9 mg/dL 8.6-10.6 L 2049713625) eGFR Calculation mL/min/1.73m2 (Non-) (test code = 5311929148) eGFR Calculation mL/min/1.73m2 () (test code = 2580778882) MYNOR (test code = MYNOR) Association of Glomerular Filtration Rate (GFR) and Staging of Kidney Disease* + --+ --+ ------+| GFR (mL/min/1.73 m2) ?| With Kidney Damage ?| ?Without Kidney Damage+ --------+ --------+ +| ?>90 ?| ?Stage one ?| ? Normal ?+ ---+ ---+ -------+| ?60-89 ?| ?Stage two ?| ? Decreased GFR ? + --+ --+ ------+| ?30-59 ?| ?Stage three ?| ? Stage three ? + --+ --+ ------+| ?15-29 ?| ?Stage four ? | ? Stage four ?+ ---+ ---+ -------+| ?<15 (or dialysis) ? ?| ?Stage five ? | ? Stage five ?+ ---+ ---+ -------+ *Each stage assumes the associated GFR level has been in effect for at least three months. ?Stages 1 to 5, with or without kidney disease, indicate chronic kidney disease. Notes: Determination of stages one and two (with eGFR >59mL/min/1.73 m2) requires estimation of kidney damage for at least three months as defined by structural or functional abnormalities of the kidney, manifested by either:Pathological abnormalities or Markers of kidney damage (including abnormalities in the composition of the blood or urine or abnormalities in imaging tests). Lab Interpretation Abnormal (test code = 80191-8) [facility] GLUCOSE (AUTOMATED)2020-09-11 19:31:00 Test Item Value Reference Range Interpretation Comments POCT GLU (test code = 6478709320) 241 mg/dL 70-110 H Lab Interpretation (test code = Abnormal 46297-0) [facility] CenterUS RETROPERITONEAL [id number] 19:22:01 1. ?Mildly increased bilateral renal cortical echogenicity, may representunderlying medical renal disease. 2. ?No nephrolithiasis or hydronephrosis. Preliminary Report Dictated by Resident: Seamus Roach MD., have reviewed this study and agree with the abovereport.EXAM: US RETROPERITONEAL LIMITED HISTORY: 80 years-old Female with JENA . TECHNIQUE: Ultrasound of kidneys was performed with grayscale and selectedcolor Doppler imaging. Pad Machine Feeder images were obtained for the record.COMPARISON: CT abdomen pelvis 09/10/2020 FINDINGS: KIDNEYS:RIGHT:Length: Normal, 9.5 cm.Parenchyma:Mildly increased renal cortical echogenicity with normalthickness. No focal solid or cystic renal lesions are detected.Collecting System: No hydronephrosis.Other: None. LEFT:Length: Normal, 9.5 cm.Parenchyma: Mildly increased renal cortical echogenicity with normalthickness. No focal solid or cystic renal lesions are detected.Collecting System: No hydronephrosis.Other: None. OTHER: None. [facility], Radiant Results Inft User - 09/11/2020 1:23 PM CSTEXAM: US RETROPERITONEAL LIMITEDHISTORY: 80 years-old Female with JENA .TECHNIQUE: Ultrasound of kidneys was performed with grayscale and selectedcolor Doppler imaging. Pad Machine Feeder images were obtained for the record.COMPARISON: CT abdomen pelvis 09/10/2020FINDINGS: KIDNEYS:RIGHT:Length: Normal, 9.5 cm.Parenchyma: Mildly increased renal cortical echogenicity with normalthickness. No focal solid or cystic renal lesions are detected.Collecting System: No hydronephrosis.Other: None.LEFT:Length: Normal, 9.5 cm.Parenchyma: Mildly increased renal cortical echogenicity with normalthickness. No focal solid or cystic renal lesions are detected.Collecting System: No hydronephrosis.Other: None.OTHER: None.IMPRESSION1. Mildly increased bilateral renal cortical echogenicity, may representunderlying medical renal disease.2. No nephrolithiasis or hydronephrosis. Preliminary Report Dictated by Resident: Ali MorshidI, Seamus M Rosas, MD., have reviewed this study and agree with the abovereport.[facility] CenterAC PAN[facility] 20 + LACTIC ACID 2020-09-11 19:15:00 Test Item Value Reference Range Interpretation Comments PH (test code = 2) 7.35-7.45 PCO2 (test code = See_Comment L [Automat ed 1811459090) message] The sy stem which generated this result transmitted reference range : 35 - 45 mmHg. The reference range was not used to interpret this result as normal/abnormal . PO2 (test code = See_Comment H [Automated 9102303145) message] The sy stem which generated this result transmitted reference range : 80 - 100 mmHg. The reference range was not used to interpret this result as normal/abnormal . HCO3 (test code = See_Comment L [Automate d 4245621468) message] The sy stem which generated this result transmitted reference range : 22 - 26 mEq/L. The reference range was not used to interpret this result as normal/abnormal . BE (test code = See_Comment L [Automated 5983944119) message] The sy stem which generated this result transmitted reference range : -3.0 - 3.0 mEq/ L. The reference r pernell was not used to interpret this result as normal/abnormal . THB (test code = 11.2 g/dL 12-16 L 2286380912) %O2HB (test code = 97.0 % 94-99 8712169706) %COHB ART (test code = 0.2 % 0-1.5 6979039341) %METHB ART (test code = 0.3 % 0.4-1.5 L 8043682260) VOL%O2 ART (test code = 15.4 % 15-23 4295102092) NA (test code = 143 mmol/L 135-145 6537760378) K+ (test code = 4.0 mmol/L 3.5-5 6916112261) AC CA IONZ (test code = 4.40 mg/dL 4.5-5.3 L 7147749191) GLUCOSE (test code = 248 mg/dL 70-110 H 3015855461) LACTIC ACID (test code 8.69 mmol/L = 1941304192) Lab Interpretation Abnormal (test code = 02968-9) [facility] CenterXR CHEST 1 [id number] 16:36:18 FINDINGS/IMPRESSION: The lung apices are not fully visualized. A right-sided central venous catheterappears to end in the projection ofthe mid SVC. No interval parenchymal consolidation, definite pneumothorax, orappreciable pleural effusion. The cardiac silhouette is not enlarged. EXAM: XR CHEST 1 VWHISTORY: ?80 yearsyear-old Female CVC placement COMPARISON: Chest x-ray 09/10/2020 [facility], Radiant Results Inft User - 09/11/2020 10:37 AM CSTEXAM: XR CHEST 1 VWHISTORY: 80 yearsyear-old Female CVC placement COMPARISON: Chest x-ray 09/10/2020IMPRESSIONFINDINGS/IMPRESSION:The lung apices are not fully v isualized.A right-sided central venous catheter appears to end in the projection ofthe mid SVC.No interval parenchymal consolidation, definite pneumothorax, orappreciable pleural effusion. The cardiac silhouette is not enlarged. [facility] CenterPHOSPHORUS2020-11-29 15:01:00 Test Item Value Reference Range Interpretation Comments PHOSPHORUS (test code = 10.5 mg/dL 2.5-5 H 8352101212) Lab Interpretation (test code = Abnormal 80874-7) [facility] CenterAC PAN[facility] 20 + LACTIC [id number] 14:27:00 Test Item Value Reference Range Interpretation Comments PH (test code = 2) 7.35-7.45 LL PCO2 (test code = See_Comment L [Automat ed 7834502887) message] The sy stem which generated this result transmitted reference range : 35 - 45 mmHg. The reference range was not used to interpret this result as normal/abnormal . PO2 (test code = See_Comment H [Automated 4064328117) message] The sy stem which generated this result transmitted reference range : 80 - 100 mmHg. The reference range was not used to interpret this result as normal/abnormal . HCO3 (test code = See_Comment L [Automate d 6054847601) message] The sy stem which generated this result transmitted reference range : 22 - 26 mEq/L. The reference range was not used to interpret this result as normal/abnormal . BE (test code = See_Comment L [Automated 0071396212) message] The sy stem which generated this result transmitted reference range : -3.0 - 3.0 mEq/ L. The reference r pernell was not used to interpret this result as normal/abnormal . THB (test code = 12.6 g/dL 12-16 2959367640) %O2HB (test code = 97.0 % 94-99 9144760744) %COHB ART (test code = 0.3 % 0-1.5 6699988009) %METHB ART (test code 0.0 % 0.4-1.5 L = 9076865285) VOL%O2 ART (test code 17.4 % 15-23 = 9385441750) NA (test code = 148 mmol/L 135-145 H 0205991832) K+ (test code = 5.0 mmol/L 3.5-5 4629948935) AC CA IONZ (test code 4.80 mg/dL 4.5-5.3 = 5387485308) GLUCOSE (test code = 340 mg/dL 70-110 H 1564705769) LACTIC ACID (test code 14.49 mmol/L = 0130906405) Lab Interpretation Abnormal (test code = 11675-1) [facility] CenterGLYCOSYLATED HEMOGLOBIN (A1C)2020-09-11 12:53:00 Test Item Value Reference Range Interpretation Comments HGB A1C (test code = 5.8 % 4-6 4548-4) MYNOR (test code = MYNOR) %A1C (NGSP) Interpretation (ADA)4.8-5.6 ? ? Normal or (Non-Diabetic Range)5.7-6.4 ? ? Increased Risk (Pre-Diabetic)>6.5 ?Diabetes Indicated Lab Interpretation Normal (test code = 05347-8) [facility]AC PAN[facility] 20 + LACTIC [id number] 12:10:00 Test Item Value Reference Range Interpretation Comments PH (test code = 2) 7.35-7.45 LL PCO2 (test code = <14 See_Comment L [Automat ed 9978944891) message] The sy stem which generated this result transmitted reference range : 35 - 45 mmHg. The reference range was not used to interpret this result as normal/abnormal . PO2 (test code = See_Comment H [Automated 9614783843) message] The sy stem which generated this result transmitted reference range : 80 - 100 mmHg. The reference range was not used to interpret this result as normal/abnormal . HCO3 (test code = See_Comment L [Automate d 0393779293) message] The sy stem which generated this result transmitted reference range : 22 - 26 mEq/L. The reference range was not used to interpret this result as normal/abnormal . BE (test code = See_Comment L [Automated 5374659037) message] The sy stem which generated this result transmitted reference range : -3.0 - 3.0 mEq/ L. The reference r pernell was not used to interpret this result as normal/abnormal . THB (test code = 11.9 g/dL 12-16 L 1267679065) %O2HB (test code = 97.5 % 94-99 3724239510) %COHB ART (test code = 0.2 % 0-1.5 4009851140) %METHB ART (test code 0.0 % 0.4-1.5 L = 8974611514) VOL%O2 ART (test code 16.6 % 15-23 = 3056731540) NA (test code = 157 mmol/L 135-145 H 1294029705) K+ (test code = 5.5 mmol/L 3.5-5 H 3304925041) AC CA IONZ (test code 4.90 mg/dL 4.5-5.3 = 2180968792) GLUCOSE (test code = 311 mg/dL 70-110 H 8855389065) LACTIC ACID (test code 21.31 mmol/L = 3231173660) Lab Interpretation Abnormal (test code = 27018-1) [facility]AC [facility] + LACTIC [id number] 12:00:00 Test Item Value Reference Range Interpretation Comments PH (test code = 2) 7.35-7.45 LL PCO2 (test code = See_Comment L [Automat ed 7472536936) message] The sy stem which generated this result transmitted reference range : 35 - 45 mmHg. The reference range was not used to interpret this result as normal/abnormal . PO2 (test code = See_Comment H [Automated 5078908086) message] The sy stem which generated this result transmitted reference range : 80 - 100 mmHg. The reference range was not used to interpret this result as normal/abnormal . HCO3 (test code = See_Comment L [Automate d 3850350259) message] The sy stem which generated this result transmitted reference range : 22 - 26 mEq/L. The reference range was not used to interpret this result as normal/abnormal . BE (test code = See_Comment L [Automated 0433580691) message] The sy stem which generated this result transmitted reference range : -3.0 - 3.0 mEq/ L. The reference r pernell was not used to interpret this result as normal/abnormal . THB (test code = 12.2 g/dL 12-16 4704912504) %O2HB (test code = 97.8 % 94-99 3324946935) %COHB ART (test code = 0.3 % 0-1.5 7247658791) %METHB ART (test code 0.1 % 0.4-1.5 L = 6150534037) VOL%O2 ART (test code 17.1 % 15-23 = 5110311697) NA (test code = 153 mmol/L 135-145 H 5779221783) K+ (test code = 5.3 mmol/L 3.5-5 H 4610784911) AC CA IONZ (test code 4.80 mg/dL 4.5-5.3 = 5634385271) GLUCOSE (test code = 336 mg/dL 70-110 H 8713644719) LACTIC ACID (test code 17.82 mmol/L = 8512054262) Lab Interpretation Abnormal (test code = 32541-3) [facility] CenterSODIUM, URINE [id number] 08:31:00 Test Item Value Reference Range Interpretation Comments NA URINE (test code = 6688185471) 149 mmol/L [facility] CenterCREATININE, URINE [id number] 08:31:00 Test Item Value Reference Range Interpretation Comments CREAT U (test code = 6930657068) 28.9 mg/dL [facility] CenterUREA NITROGEN, URINE [id number] 08:31:00 Test Item Value Reference Range Interpretation Comments UREA N UR (test code = 2182834510) 179 mg/dL [facility] CenterPROTHROMBIN TIME / [id number] 08:29:00 Test Item Value Reference Range Interpretation Comments PROTIME PATIENT (test See_Comment [Auto mated message] code = 5964-2) The system [employer] generated this result transmitted ref erence range: 10.1 - 1 2.6 Seconds. The re ference range was not u sed to interpret this result as normal/abnor mal. INR (test code = 6301-6) Nor mal INR <1.1; Warfarin Therap eutic range 2.0 to 3. 0 or 2.5 to 3.5, dep ending upon the indica tions. Lab Interpretation (test Normal code = 10446-0) [facility] CenterACTIVATED PARTIAL THRMPLAS [id number] 08:29:00 Test Item Value Reference Range Interpretation Comments APTT Patient (test code = See_Comment [ Automated message] 3173-2) The system [employer] generated this result transmitted ref erence range: 26 - 36 Seconds. The re ference range was not u sed to interpret this result as normal/abnor mal. Lab Interpretation (test Normal code = 25077-2) [facility] CenterFIBRINOGEN2020-11-29 08:29:00 Test Item Value Reference Range Interpretation Comments Fibrinogen (test code = 4083007790) 380 mg/dL 167-453 Lab Interpretation (test code = Normal 61433-0) [facility] CenterD-[id number] 08:29:00 Test Item Value Reference Interpretation Comments Range D-DIMER (test code = See_Comment H [Autom ated 4147667964) message] The system which generated this result transmitted reference range : <0.50 ?g/mL (FEU). The reference range was not used to interpret this result as normal/abnormal . MYNOR (test code = This test may be MYNOR) used in conjunction with a clinical pretest probability (PTP) assessment model to exclude venous thromboembolism (VTE) in patients suspected of deep venous thrombosis (DVT) and pulmonary embolism (PE) A D-Dimer value less than 0.50 ?g/ml (FEU) has a negative predicative value of 96 to 100% (95% CI)and 97 to 100% (95% CI) as an aid in the diagnosis of deep vein thrombosis (DVT) and pulmonary embolism when there is low or moderate pretest probability of PE or DVT. D-Dimer values are expressed in initial fibrinogen equivalent units (FEU)" The assay results should be used with other information, including the clinical context, in forming a diagnosis. Lab Interpretation Abnormal (test code = 49308-5) [facility] CenterPOCT GLUCOSE (AUTOMATED)2020-09-11 08:08:00 Test Item Value Reference Range Interpretation Comments POCT GLU (test code = 1687744197) 145 mg/dL 70-110 H Lab Interpretation (test code = Abnormal 58829-1) [facility] CenterAC PANEL 20 + LACTIC [id number] 08:06:00 Test Item Value Reference Range Interpretation Comments PH (test code = 2) 7.35-7.45 LL PCO2 (test code = <14 See_Comment L [Automat ed 2314778316) message] The sy stem which generated this result transmitted reference range : 35 - 45 mmHg. The reference range was not used to interpret this result as normal/abnormal . PO2 (test code = See_Comment H [Automated 1276004743) message] The sy stem which generated this result transmitted reference range : 80 - 100 mmHg. The reference range was not used to interpret this result as normal/abnormal . HCO3 (test code = See_Comment L [Automate d 2548307887) message] The sy stem which generated this result transmitted reference range : 22 - 26 mEq/L. The reference range was not used to interpret this result as normal/abnormal . BE (test code = See_Comment L [Automated 6514333043) message] The sy stem which generated this result transmitted reference range : -3.0 - 3.0 mEq/ L. The reference r pernell was not used to interpret this result as normal/abnormal . THB (test code = 13.3 g/dL 12-16 8142952698) %O2HB (test code = 96.9 % 94-99 4829605852) %COHB ART (test code = 0.3 % 0-1.5 7301737507) %METHB ART (test code 0.0 % 0.4-1.5 L = 1085055437) VOL%O2 ART (test code 18.4 % 15-23 = 3312939799) NA (test code = 159 mmol/L 135-145 H 6874999334) K+ (test code = 5.7 mmol/L 3.5-5 H 1271962080) AC CA IONZ (test code 4.90 mg/dL 4.5-5.3 = 1020492288) GLUCOSE (test code = 154 mg/dL 70-110 H 2601172779) LACTIC ACID (test code 17.72 mmol/L = 3126411884) Lab Interpretation Abnormal (test code = 61479-7) [facility] CenterIRON [id number] 06:16:00 Test Item Value Reference Range Interpretation Comments IRON (test code = 6625923832) 48 ug/dL 50-160 L TIBC (test code = 0396575249) 276 ug/dL 250-410 % FE SAT (test code = 0150303749) 17 % 20-50 L Lab Interpretation (test code = Abnormal 89377-5) [facility] CenterETHANOL2020-11-29 06:07:00 Test Item Value Reference Range Interpretation Comments ALCOHOL (test code = <10 mg/dL 0869014195) MYNOR (test code = MYNOR) <10 Hutajojr39-676 Toxic>100 Depression of PLASMA CENTER TECHNICIAN>400 Fatalities Reported [facility] CenterSALICYLATE2020-11-29 06:07:00 Test Item Value Reference Range Interpretation Comments SALICYLATE (test code <10 mg/L = 4779999467) MYNOR (test code = MYNOR) Therapeutic Range: ? Analgesic and Antipyretic Use ? 20-100 mg/L ? ? Anti-Inflammatory Use ? 100-250 mg/L Toxic Range: ? Greater than 300 mg/L [facility] CenterACETAMINOPHEN2020-11-29 06:07:00 Test Item Value Reference Range Interpretation Comments ACETAMINOP (test code = <10.0 10-30 L 8272999897) MYNOR (test code = MYNOR) Toxic: Greater than 200 ug/mL @ 4 hour post ingestion or greater than 50 ug/mL @ 12 hour post ingestion Lab Interpretation (test Abnormal code = 01157-7) [facility] CenterABG+COOX+NA+K+GLU+CA2+2020-09-11 05:28:00 Test Item Value Reference Range Interpretation Comments PH (test code = 2) 7.35-7.45 LL PCO2 (test code = See_Comment L [Automat ed message] 8607108845) The system [employer] generated this result transmit romain reference range : 35 - 45 mmHg. The reference range was not used to interpret this result as normal/abnormal . PO2 (test code = See_Comment H [Automated message] 2675062123) The system [employer] generated this result transmit romain reference range : 80 - 100 mmHg. The reference range was not used to interpret this result as normal/abnormal . HCO3 (test code = See_Comment L [Automate d message] 0565125264) The system [employer] generated this result transmit romain reference range : 22 - 26 mEq/L. The reference range was not used to interpret this result as normal/abnormal . BE (test code = See_Comment L [Automated message] 3652670715) The system [employer] generated this result transmit romain reference range : -3.0 - 3.0 mEq/ L. The reference r pernell was not used to interpret this result as normal/abnormal . THB (test code = 13.0 g/dL 12-16 6407758641) %O2HB (test code = 95.9 % 94-99 2905713586) %COHB ART (test code = 0.3 % 0-1.5 8026811512) %METHB ART (test code = 0.0 % 0.4-1.5 L 0594879741) VOL%O2 ART (test code = 17.7 % 15-23 1437566710) NA (test code = 156 mmol/L 135-145 H 0237249610) K+ (test code = 5.4 mmol/L 3.5-5 H 7079540227) AC CA IONZ (test code = 4.80 mg/dL 4.5-5.3 0550110589) GLUCOSE (test code = 115 mg/dL 70-110 H 6087654769) Lab Interpretation Abnormal (test code = 06377-1) [facility] CenterLactic Acid Whole [id number] 04:51:00 Test Item Value Reference Range Interpretation Comments LACTIC ACID (test code = 13.37 mmol/L 5323046757) [facility] CenterCT ABDOMEN PELVIS WO [id number] 04:25:50Impression: 1. No acute abnormalities evident. Specifically, negative for urolithiasisand obstructive uropathy.2. Atherosclerosis, including atherosclerotic coronary artery disease.3. Colonic diverticulosis. AFC: [id number] For the duration of this shift, I may be reached at [phone]. RL: 460 End of Report Ordering Physician: ZAHEER BAUTISTA History: Hematuria of unknown cause. Stone disease suspected.. Technique: CT abdomen and pelvis without intravenous contrast. Thisexamination was performed according to ALARA principles. Compariso n: None. Findings: There is some respiratory motion artifact. The dome of the liver ispartially excluded from the scan. Otherwise, the liver appearsunremarkable. The gallbladder, spleen, pancreas, and adrenal glands areunremarkable. No radiopaque urinary tract calculi are evident. There is nohydronephrosis. The urinary bladder is grossly unremarkable. Evaluation of the stomach is limited by lack of distention, but no grossgastric abnormalities are apparent. There is atherosclerotic calcificationof the abdominal aorta and its branches, with no evidence of aneurysm. Nouterine or adnexal abnormalitiesare evident. There is colonicdiverticulosis, without diverticulitis. There is no bowel obstruction.There is no free intraperitoneal fluid or free intraperitoneal air. Atherosclerotic coronary artery disease is present. Subsegmentalatelectasis is seen within the included lung bases. There are degenerativechanges of the spine and hips. No acute bony abnormalities are evident. [facility], Radiant Results InftUser - 09/10/2020 10:26 PM CSTOrdering Physician: ZAHEER BAUTISTAHistory: Hematuria of unknown cause.Stone disease suspected..Technique: CT abdomen and pelvis without intravenous contrast. Thisexamination was performed according to ALARA principles.Comparison: None.Findings: There is some respiratory motion artifact. The dome of the liver ispartially excluded from the scan. Otherwise, the liver appearsunremarkable. The gallbladder, spleen, pancreas, and adrenal glands areunremarkable. No radiopaque urinary tract calculi are evident. There is nohydronephrosis. The urinary bladder is grossly unremarkable.Evaluation of the stomach is limited by lack of distention, but no grossgastric abnormalities are apparent. There is atherosclerotic calcificationof the abdominal aorta and its branches, with no evidence of aneurysm. Nouterine or adnexal abnormalities are evident. There is colonicdiverticulosis, without diverticulitis. There is no bowel obstruction.There is no free intraperitoneal fluid or free intraperitoneal air.Atherosclerotic coronary artery disease is present. Subsegmentalatelectasis is seen within the included lung bases. There are degenerativechanges of the spine and hips. No acute bony abnormalities are evident.IMPRESSIONImpression: 1. No acute abnormalities evident. Specifically, negative for urolithiasisand obstructive uropathy.2. Atherosclerosis, including atherosclerotic coronary a rtery disease.3. Colonic diverticulosis.AFC: [id number] the duration of this shift, I may be reached at [phone].RL: 460End of Report [facility]CT [facility] WO [id number] 04:20:11Impression: Involutional changes, with no acute intracranial abnormalities evident. AFC: [id number] For the duration of this shift, I may be reached at [phone]. RL: 460 End of Report Ordering physician: ZAHEER BAUTISTA History: Altered mental status of unclear cause Technique: CT head without intravenous contrast. This examination wasperformed according to ALARA principles. Comparison: None Findings: There is prominence of the ventricles and subarachnoid spaces, compatiblewith atrophy. There is carotid atherosclerosis bilaterally hypodensity,compatible with chronic ischemic white matter disease. Tafoya-whitedifferentiation is preserved. No intracranial mass or intracranialhemorrhage is evident. No acute bony abnormalities are evident. The mastoidsinuses and included paranasal sinuses are clear. The included extracranialsoft tissues are unremarkable. [facility], Radiant Results Inft User - 09/10/2020 10:21 PM CSTOrdering physician: ZAHEER BAUTISTAHistory: Altered mental status of unclear causeTechnique: CT head without intravenous contrast. This examination wasperformed according to ALARA principles.Comparison: NoneFindings: There is prominence of the ventricles and subarachnoid spaces, compatiblewith atrophy. There is carotid atherosclerosis bilaterally hypodensity,compatible with chronic ischemic white matter disease. Tafoya-whitedifferentiation is preserved. No intracranial mass or intracranialhemorrhage is evident. No acute bony abnormalities are evident. The mastoidsinuses and included paranasal sinuses are clear. The included extr acranialsoft tissues are unremarkable.IMPRESSIONImpression:Involutional changes, with no acute intracranial abnormalities evident.AFC: [id number] the duration of this shift, I may be reached at [phone].RL: 460End of Report [facility] CenterXR CHEST 1 [id number] 04:14:41 No acute cardiopulmonary abnormality. Preliminary Report Dictated by Resident: Dinorah Rausch I, Cecilia Arriola MD., have reviewed this study and agree with the abovereport.EXAM: XR CHEST 1VW 09/10/2020 8:00 PM HISTORY: 80 years-old Female with sepsis TECHNIQUE: Frontal portable view of the chest COMPARISON: None FINDINGS: The lungs are well expanded and clear. No pleural effusion, focalconsolidation, or pneumothorax is identified. The cardiomediastinal silhouette is normal in size. Atheroscleroticcalcifications are seen in the aortic arch. No acute osseous abnormality is present. [facility], Radiant Results Inft User - 09/10/2020 10:15 PM CSTEXAM: XR CHEST 1 VW 09/10/2020 8:00 PMHISTORY: 80 years-old Female with sepsis TECHNIQUE: Frontal portable view of the chest COMPARISON: NoneFINDIN GS:The lungs are well expanded and clear. No pleural effusion, focalconsolidation, or pneumothorax is identified. The cardiomediastinal silhouette is normal in size. Atheroscleroticcalcifications are seen in the aortic arch.No acute osseous abnormality is present.IMPRESSIONNo acute cardiopulmonary abnormality.Preliminary Report Dictated by Resident: Cecilia Nieves MD., havereviewed this study and agree with the abovereport.[facility] CenterTROPONIN [id number] 03:14:00 Test Item Value Reference Range Interpretation Comments TROPONIN I (test <0.012 See_Comment [Automated code = 7778314304) message] The system which generated this result transmitted reference range : <=0.034 ng/mL. The reference range was not used to interpr et this result as normal/abnormal . MYNOR (test code = Equal or Less than MYNOR) 0.034 ng/ml---Normal ?Note: Cardiac troponin begins to rise 3-4 hours after the onset of ischemia. Repeat in 4-6 hours if the sample was drawn within 3-4 hours of the onset of the symptom and found normal. Between 0.035 and 0.120 ng/mL--- Borderline. Questionable myocardial injury or necrosis ? ?Note: Serial measurement may be necessary to confirm or exclude the diagnosis of myocardial injury or necrosis; Clinical correlation (symptoms, EKGs, imaging studies, and others) required; Repeat in 4-6 hours if clinically indicated. ? Equal or Higher than 0.121 ng/mL---Abnormal. Myocardial Injury or Necrosis Likely ? Biotin has been reported to cause a negative bias, interpret results relative to patient's use of biotin. ? Lab Interpretation Normal (test code = 07805-4) [facility] WITH [id number] 03:02:00 Test Item Value Reference Range Interpretation Comments WBC (test code = See_Comment H [Automated 5090-2) message] The system which generated this result transmit romain reference range : 4.30 - 11.10 10*3/?L. The reference range was not used to interpret this result as normal/abnormal . RBC (test code = See_Comment [Automated 839-8) message] The system which generated this result transmit romain reference range : 3.93 - 5.25 10*6/?L. The reference range was not used to interpret this result as normal/abnormal . HGB (test code = 13.6 g/dL 11.6-15 718-7) HCT (test code = 43.7 % 35.7-45.2 4544-3) MCV (test code = 100.7 fL 80.6-95.5 H 787-2) MCH (test code = 31.3 pg 25.9-32.8 785-6) MCHC (test code = 31.1 g/dL 31.6-35.1 L 786-4) RDW-SD (test code = 45.2 fL 39-49.9 10742-8) RDW-CV (test code = 12.1 % 12-15.5 788-0) PLT (test code = See_Comment [Automated 777-3) message] The system which generated this result transmit romain reference range : 166 - 358 10*3/ ?L. The reference range was not u sed to interpret th is result as normal/abnormal . MPV (test code = 12.5 fL 9.5-12.9 56644-1) NRBC/100 WBC (test See_Comment [Automat ed code = 2168870371) message] The system which generated this result transmit romain reference range : 0.0 - 10.0 /100 WBCs. The reference range was not used to interpret this result as normal/abnormal . NRBC x10^3 (test code <0.01 See_Comment [Auto mated = 0607437375) message] The system which generated this result transmit romain reference range : 10*3/?L. The reference range was not used to interpret this result as normal/abnormal . GRAN MAT (NEUT) % 93.2 % (test code = 770-8) IMM GRAN % (test code 0.60 % = 7692951722) LYMPH % (test code = 3.9 % 736-9) MONO % (test code = 2.0 % 5905-5) EOS % (test code = 0.0 % 713-8) BASO % (test code = 0.3 % 706-2) GRAN MAT x10^3(ANC) 18.68 10*3/uL 1.88-7.09 H (test code = 9885064566) IMM GRAN x10^3 (test 0.12 10*3/uL 0-0.06 H code = 1017103185) LYMPH x10^3 (test code 0.79 10*3/uL 1.32-3.29 L = 731-0) MONO x10^3 (test code 0.40 10*3/uL 0.33-0.92 = 742-7) EOS x10^3 (test code = <0.03 0.03-0.39 L 711-2) BASO x10^3 (test code 0.06 10*3/uL 0.01-0.07 = 704-7) Lab Interpretation Abnormal (test code = 51120-1) [facility]. METABOLIC PANEL (36772)2020-09-11 02:53:00 Test Item Value Reference Range Interpretation Comments NA (test code = 147 mmol/L 135-145 H 2339047096) K (test code = 6.3 mmol/L 3.5-5 HH 0817461031) CL (test code = 102 mmol/L 98-108 8998488947) CO2 TOTAL (test code = 7 mmol/L 23-31 L 4420901786) AGAP (test code = 2-16 H 2160396393) BUN (test code = 97 mg/dL 7-23 H 8161461277) GLUCOSE (test code = 83 mg/dL 70-110 4002358708) CREATININE (test code = 9.41 mg/dL 0.5-1.04 H 9450040992) TOTAL BILI (test code = 0.4 mg/dL 0.1-1.1 6298002473) CALCIUM (test code = 10.3 mg/dL 8.6-10.6 6897581564) T PROTEIN (test code = 7.3 g/dL 6.3-8.2 1222131657) ALBUMIN (test code = 4.5 g/dL 3.5-5 9880211343) ALK PHOS (test code = 77 U/L 34-122 5665614378) ALTv (test code = 31 U/L 5-35 1742-6) AST(SGOT) (test code = 34 U/L 13-40 3449003266) eGFR Calculation mL/min/1.73m2 (Non-) (test code = 8033944359) eGFR Calculation mL/min/1.73m2 () (test code = 6440015413) MYNOR (test code = MYNOR) Association of Glomerular Filtration Rate (GFR) and Staging of Kidney Disease* + --+ --+ ------+| GFR (mL/min/1.73 m2) ?| With Kidney Damage ?| ?Without Kidney Damage+ --------+ --------+ +| ?>90 ?| ?Stage one ?| ? Normal ?+ ---+ ---+ -------+| ?60-89 ?| ?Stage two ?| ? Decreased GFR ? + --+ --+ ------+| ?30-59 ?| ?Stage three ?| ? Stage three ? + --+ --+ ------+| ?15-29 ?| ?Stage four ? | ? Stage four ?+ ---+ ---+ -------+| ?<15 (or dialysis) ? ?| ?Stage five ? | ? Stage five ?+ ---+ ---+ -------+ *Each stage assumes the associated GFR level has been in effect for at least three months. ?Stages 1 to 5, with or without kidney disease, indicate chronic kidney disease. Notes: Determination of stages one and two (with eGFR >59mL/min/1.73 m2) requires estimation of kidney damage for at least three months as defined by structural or functional abnormalities of the kidney, manifested by either:Pathological abnormalities or Markers of kidney damage (including abnormalities in the composition of the blood or urine or abnormalities in imaging tests). Lab Interpretation Abnormal (test code = 50402-4) [facility] CenterCOVID-19 (ID NOW RAPID TESTING)2020-09-11 02:52:00 Test Item Value Reference Range Interpretation Comments SARS-CoV-2 Rapid ID NOW Not Detected Not Detected (test code = 37095-1) MYNOR (test code = MYNOR) ID NOW COVID-19 Assay is an isothermal nucleic acid amplification test intended for the qualitative detection of nucleic acid from SARS-CoV-2 viral RNA in nasopharyngeal (CANAL BOAT OPERATOR) specimens. It is used under Emergency Use Authorization (EUA) by FDA. The limit of detection (LOD) of the assay is 125 Genome Equivalents/mL. A positive result is indicative of the presence of SARS-CoV-2 RNA. ?Clinical correlation with patient history and other diagnostic information is necessary to determine patient infection status. A negative (Not Detected) result does not preclude SARS-CoV-2 infection. In patients with clinical symptoms and other tests that are consistent with SARS-CoV-2 infection, negative results should be treated as presumptive negative and a new specimen should be tested with alternative PCR molecular test. Invalid: Please collect a new specimen for repeat patient testing if clinically indicated. Lab Interpretation Normal (test code = 96899-4) [facility] CenterLactic Acid Whole [id number] 02:46:00 Test Item Value Reference Range Interpretation Comments LACTIC ACID (test code = 12.55 mmol/L 7775939547) [facility] CenterURINALYSIS2020-11-29 02:45:00 Test Item Value Reference Range Interpretation Comments APPEARANCE (test code = Hazy Clear A 2972662395) COLOR (test code = Yellow Yellow 3882866158) PH (test code = 4.8-8.0 9968502451) SP GRAVITY (test code = 1.003-1.030 6621773491) GLU U QUAL (test code = Normal Normal 8193436741) BLOOD (test code = 1+ Negative A 2019173657) KETONES (test code = 5 mg/dL Negative A 7687376217) PROTEIN (test code = 100 mg/dL Negative A 2887-8) UROBILIN (test code = Normal Normal 4051249457) BILIRUBIN (test code = Negative Negative 0680777309) NITRITE (test code = Negative Negative 8579402605) LEUK GABRIELA (test code = 25/uL Negative A 9019823761) RBC/HPF (test code = See_Comment H [Autom ated message] 6166565086) The system [employer] generated this result transmit romain reference range : 0 - 3 HPF. The refe rence range was not u sed to interpret th is result as normal/abnormal . WBC/HPF (test code = See_Comment H [Autom ated message] 0416156033) The system [employer] generated this result transmit romain reference range : 0 - 5 HPF. The refe rence range was not u sed to interpret th is result as normal/abnormal . BACTERIA (test code = Few Negative A 6200971147) AMORPHOUS (test code = Rare Rare HPF 7110581929) SQ EPITH (test code = <1 HPF 6247665390) Lab Interpretation (test Abnormal code = 81536-6) [facility] CenterLactic Acid Whole [id number] 02:21:00 Test Item Value Reference Range Interpretation Comments LACTIC ACID (test code = 14.12 mmol/L 1220567001) [facility] CenterMG Mammo Digital Screening [id number] 15:53:11Patient: DIRK PICHARDO Date/Time11/19/201913:33 CSTReason for ExamZ12.31ReportLocation R 16BILATERAL SCREENING MAMMOGRAM WITH TOMOSYNTHESIS AND CADHistory: 79 year-old female who presents for screening mammogram.Technique: CC and MLO views ofboth breasts. CC and MLO tomographic images of each breast with C- view provided. Computer-aided detection is utilized.Comparison: Multiple prior studies dating as far back as 03/06/2010 with most recent prior study dated 11/07/2018 .Findings:There are scattered areas of fibroglandular density.No evidence of new dominant mass, asymmetry, architectural distortion or suspicious microcalcifications is seen. Occasional benign punctate calcifications are seen bilaterally.Impression:No mammographic evidenceof malignancy.RECOMMENDATIONS: FOLLOW-UP MAMMOGRAM IN ONE YEAR IN THE ABSENCE OF CLINICAL FINDINGS.BI-RADS CATEGORY 2: Benign Final Dictated by: MD Ortega Eniola FDictated DT/TM: 11/19/2019 3:01 pmSigned by: MD Ortega Eniola FSigned (Electronic Signature): 11/19/2019 3:53 pmMG Mammo Digital Screening [id number] 16:54:09Patient: DIRK PICHARDO Date/Time11/07/2018 12:23 CSTReason for ExamZ12.31ReportLocation R 16BILATERAL SCREENING MAMMOGRAM WITH CADHistory: 78 year-old female who presents for screening mammogram.Bilateral screening mammogram with computer assisted diagnosis was performed and compared to multiple prior studies dating as far back as 03/06/2010 with most recent prior study dated 09/10/2017 .CC AND MLO views of the both breasts were obtained and interpreted.The breasts are primarily fatty.No evidence of new dominant mass, asymmetry, architectural distortion or suspicious microcalcifications is seen.Occasional benign punctate calcifications areseen bilaterally.Impression:No mammographic evidence of malignancy.RECOMMENDATIONS: FOLLOW-UP MAMMOGRAM IN ONE YEAR IN THE ABSENCE OF CLINICAL FINDINGS.BI-RADS CATEGORY 2: Benign Final Dictated by: MD Ortega Eniola FDictated DT/TM: 11/07/2018 4:53 pmSigned by: MD Ortega Eniola FSigned (Electronic Signature): 11/07/2018 4:54 pmMAM MAMMO SCREENING MICHAEL [id number] 12:30:13 EUGENIE MAMMO SCREENING MICHAEL W/CADZ12.31: ENCNTR SCREEN MAMMOGRAM FOR MALIGNANT NEOPLASM OF BREAST.Dictation Location: [id number] Information: Screening mammogram. Patient with a family historyof breast cancer in her cousin.Technique: Bilateral digital mammogram with computer assisted diagnosis. BilateralCC and MLO views were obtained.Comparison: Prior mammograms dating back to 10/30/2013Findings: Thereare scattered areas of fibroglandular density. There are nosuspicious masses or microcalcifications.IMPRESSION: No mammographic evidence of malignancy.ACR BI-RADS CATEGORY 1: NEGATIVERECOMMENDATION: FOLLOW UP MAMMOGRAM IN 1 YEAR.US DUPLX EXT VEIN COMPRS, [id number] 16:09:40EXAM: Venous duplex left lower extremity ultrasoundLocation: W41Bgmckqkqpm: R22.42: LOCALIZED SWELLING, MASS AND LUMP, LEFT LOWER LIMBCOMPARISON: NoneDISCUSSION: Tafoya-scale, color Doppler, and spectralwaveform ultrasoundanalysis of the left lower extremity was performed. The common femoralvein, proximal, mid and distal superficial femoral vein, and poplitealvein are compressible and show normal response to augmentation. Themajor veins at the ankle show normal flow.IMPRESSION: No evidence for deepvenous thrombosis in the left lowerextremity.XR FOOT 3+V, [id number] 14:02:33XR FOOT 3+V, COMPLETE-LEFTLOCATION: R16 INDICATION: M79.672: PAIN IN LEFT FOOT TECHNIQUE: 3 viewsof the footCOMPARISON: noneFINDINGS: No fracture or dislocation is identified. No lytic or blastic lesion isidentified. There is no radiopaque foreign body identified. The softtissues are unremarkable. There is posterior and plantar calcanealspurring.IMPRESSION:No fracture or dislocation. Posterior and plantar calcaneal spurring.
[2022-03-11 18:09] LABS: Absolute Lymphocytes (CBC) 1.1 K/uL (0.7-4.9); Hematocrit 41.2 % (36.0-45.0); MPV 9.2 fL (7.6-11.3); RBC Red Blood Cell Count 4.43 M/uL (3.86-4.86)
--- NOTE | 2022-03-11 18:27 | RAD REPORT ---
EXAM DESCRIPTION: CT - Head Brain Wo Cont - 03/11/2022 6:19 pm CLINICAL HISTORY: Seizure, new-onset, no history of trauma COMPARISON: No comparisonsNo comparisons TECHNIQUE: All CT scans are performed using dose optimization technique as appropriate and may inclu de automated exposure control or mA/KV adjustment according to patient size. FINDINGS: No intracranial hemorrhage, hydrocephalus or extra-axial fluid collection.Advanced brain a trophy is present.No areas of brain edema or evidence of midline shift. The paranasal sinuses and mastoids are clear. The calvarium is intact. IMPRESSION: No acute intracranial abnormality.
[2022-03-11 18:42] LABS: Albumin 3.1 g/dL (3.4-5.0); Bilirubin Total 0.5 mg/dL (0.2-1.0); Potassium 4.4 mmol/L (3.5-5.1); Protein, Total 6.7 g/dL (6.4-8.2)
[2022-03-11] MEDS ORDERED: NA CHLORIDE 0.9% 1,000 ML ONE (19:28)
[2022-03-11 19:57] LABS: Urine Blood Negative (Negative); Urine Glucose Negative (Negative); Urine Protein Negative (Negative); Urine Specific Gravity 1.025 (1.005-1.030)
[2022-03-11 20:19] LABS: Urine Bacteria <20 /HPF (<20); Urine Mucus MOD /HPF (NONE SEEN); Urine RBC NONE SEEN /HPF (NONE SEEN)
--- NOTE | 2022-03-11 21:15 | ER ---
Nurse's Notes [facility] Name: Velma Pichardo Age: 81 yrs Sex: Female : 1940 Arrival Date: 03/11/2022 Time: 17:18 Bed 2 Private MD: Diagnosis: Dehydration Presentation: 03/11 17:21 Chief complaint: EMS states: Toned out for possible seizure, EMS reports no seizure jl7 like activity noted, pt did vomit x1 and mild tremors noted. EMS reports pts mentation is baseline, A\T\Ox1 to self only. Coronavirus screen: At this time, the client does not indicate any symptoms associated with coronavirus-19. Ebola Screen: No symptoms or risks identified at this time. Initial Sepsis Screen: Does the patient meet any 2 criteria? No. Patient's initial sepsis screen is negative. Does the patient have a suspected source of infection? No. Patient's initial sepsis screen is negative. Risk Assessment: Do you want to hurt yourself or someone else? Patient reports no desire to harm self or others. Onset of symptoms was March 11, 2022 at 16:40. Care prior to arrival: Medication(s) given: Normal saline infusion, 300 mL IV initiated. 20 GA, in the left hand, Glucose check: 220. 17:21 Method Of Arrival: EMS: [facility]7 17:21 Acuity: SHEMAR 3 jl7 Triage Assessment: 17:27 General: Appears in no apparent distress. uncomfortable, Behavior is calm, cooperative, jl7 appropriate for age. Pain: Denies pain. Neuro: Level of Consciousness is awake, alert, obeys commands, Oriented to person. Cardiovascular: Patient's skin is warm and dry. Respiratory: Airway is patent Respiratory effort is even, unlabored, Respiratory pattern is regular, symmetrical. Derm: Skin is pink, warm \T\ dry. Historical: - Allergies: 17:27 No Known Allergies; jl7 - PMHx: 17:27 Diabetes - NIDDM; Alzheimer's disease; jl7 - Immunization history:: Adult Immunizations unknown. - Social history:: Smoking status: unknown. Screenin:49 Abuse screen: Denies threats or abuse. Nutritional screening: No deficits noted. jd3 Tuberculosis screening: No symptoms or risk factors identified. Fall Risk Ambulatory Aid- None/Bed Rest/Nurse Assist (0 pts). Gait- Normal/Bed Rest/Wheelchair (0 pts) Mental Status- Oriented to own ability (0 pts). Total Otto Fall Scale indicates No Risk (0-24 pts). Assessment: 17:45 General: Appears in no apparent distress. comfortable, Behavior is calm, cooperative, jd3 drowsy. Pain: Denies pain. Neuro: Cain Agitation-Sedation Scale (RASS): -1 Drowsy Level of Consciousness is awake, obeys commands, confused, Oriented to person, pt's reports that pt is at baseline mentation, just drowsy. Reports reports seizure like activity with an episode of vomiting afterwards. Cardiovascular: Denies chest pain, Heart tones present Capillary refill < 3 seconds Patient's skin is warm and dry. Rhythm is regular. Respiratory: Airway is patent Respiratory effort is even, unlabored, Respiratory pattern is regular, symmetrical, Breath sounds are clear bilaterally. Denies cough, shortness of breath. GI: Abdomen is round non-distended, Bowel sounds present X 4 quads. Abd is soft and non tender X 4 quads. Parent/caregiver reports the patient having vomiting. : No signs and/or symptoms were reported regarding the genitourinary system. EENT: No signs and/or symptoms were reported regarding the EENT system. Derm: Skin is intact, Skin is dry, Skin is normal, Skin temperature is warm. Musculoskeletal: Circulation, motion, and sensation intact. Range of motion: intact in all extremities. 19:01 Reassessment: No changes from previously documented assessment. Patient and/or family jd3 updated on plan of care and expected duration. Pain level reassessed. 20:02 General: Appears in no apparent distress. comfortable, Behavior is calm, cooperative. lg3 Pain: Denies pain. Neuro: Cain Agitation-Sedation Scale (RASS): -1 Drowsy Level of Consciousness is awake, obeys commands, confused, Oriented to person. Cardiovascular: No deficits noted. Denies chest pain, Capillary refill < 3 seconds Clubbing of nail beds is absent JVD is absent Patient's skin is warm and dry. Respiratory: No deficits noted. Reports Airway is patent Trachea midline Respiratory effort is even, unlabored, Respiratory pattern is regular, symmetrical. GI: No deficits noted. No signs and/or symptoms were reported involving the gastrointestinal system. Abdomen is round non-distended, Last BM was March 11, 2022. at 20:03. : No deficits noted. No signs and/or symptoms were reported regarding the genitourinary system. EENT: No deficits noted. No signs and/or symptoms were reported regarding the EENT system. Derm: No deficits noted. No signs and/or symptoms reported regarding the dermatologic system. Skin is intact, is thin, Skin is dry, Skin is normal, Skin temperature is warm. Musculoskeletal: Circulation, motion, and sensation intact. Range of motion: intact in all extremities. 20:58 Reassessment: No changes from previously documented assessment. Patient and/or family vc1 updated on plan of care and expected duration. Pain level reassessed. Patient states feeling better. Patient states symptoms have improved. Vital Signs: 17:21 Pulse 68; Resp 15; Temp 98.3; Pulse Ox 96% ; jl7 18:12 BP 113 / 55; jd3 19:01 Pulse 60; Resp 19 S; Pulse Ox 97% on R/A; jd3 20:04 BP 123 / 61; Pulse 72; Resp 18; Pulse Ox 97% on R/A; lg3 20:30 BP 103 / 58; Pulse 69; Resp 19; Pulse Ox 99% ; vc1 ED Course: 17:18 Patient arrived in ED. eb 17:22 Benito Stone NP is PHCP. pm1 17:22 Barber King MD is Attending Physician. pm1 17:26 Triage completed. jl7 17:27 Arm band placed on right wrist. jl7 17:45 Jaylen Harris, ESEQUIEL is Primary Nurse. jd3 17:49 Patient has correct armband on for positive identification. Placed in gown. Bed in low jd3 position. Call light in reach. Side rails up X2. Adult w/ patient. Client placed on continuous cardiac and pulse oximetry monitoring. NIBP monitoring applied. high school english teacher on. Pulse ox on. NIBP on. 18:22 CT Head Brain wo Cont In Process Unspecified. EDMS 19:21 Primary Nurse role handed off by Jaylen Harris, ESEQUIEL eb 19:51 Edyta Manning, ESEQUIEL is Primary Nurse. lg3 20:01 Urine Microscopic Only Sent. lg3 21:37 No provider procedures requiring assistance completed. vc1 21:41 IV discontinued, intact, bleeding controlled, No redness/swelling at site. Pressure bb dressing applied. Administered Medications: 19:51 Drug: NS 0.9% 500 ml Route: IV; Rate: bolus; Site: left forearm; lg3 21:03 Drug: NS 0.9% 500 ml Route: IV; Rate: bolus; Site: right antecubital; vc1 Medication: 17:49 VIS not applicable for this client. jd3 Outcome: 21:14 Discharge ordered by MD. pm1 21:41 Discharged to home via wheelchair, with family. bb 21:41 Condition: stable 21:41 Discharge instructions given to patient, family, Instructed on discharge instructions, follow up and referral plans. Demonstrated understanding of instructions, follow-up care. 21:56 Patient left the ED. vc1 Signatures: Dispatcher [employer] EDMS Cadence Brown, RN RN bb Benito Stone, INGREDIENT SPECIALIST INGREDIENT SPECIALIST pm1 Aubrey Rawls RN RN [id number] Jaylen Harris RN RN jLissette Dove Lacie RN RN lg3 Mariluz Dewey RN RN vc1
--- NOTE | 2022-03-11 21:15 | EDPHYS ---
Physician Documentation [facility] Name: Velma Pichardo Age: 81 yrs Sex: Female : 1940 Arrival Date: 03/11/2022 Time: 17:18 Bed 2 Private MD: ED Physician Barber King HPI: 03/11 17:48 This 81 yrs old Female presents to ER via EMS with complaints of possible seizure and pm1 dehydration. 17:48 The patient presents after having a possible seizure episode, the episode(s) was pm1 witnessed, by family, . Character of seizure(s): Loss of consciousness: the patient did not lose consciousness, Motor activity: focal activity, Incontinence: none. Seizure onset: just prior to arrival. Context: the seizure(s) was witnessed, by family, , occurred at home, occurred while the patient was sitting, Contributing factors: possibly dehydration. Seizure Hx: the patient has no previous seizure history. Associated injury: The patient did not suffer any apparent associated injury. EMS care: none. Current symptoms: Currently, the patient is not experiencing any symptoms. The patient has not experienced similar symptoms in the past. The patient has not recently seen a physician. Historical: - Allergies: 17:27 No Known Allergies; jl7 - PMHx: 17:27 Diabetes - NIDDM; Alzheimer's disease; jl7 - Immunization history:: Adult Immunizations unknown. - Social history:: Smoking status: unknown. ROS: 17:48 Constitutional: Negative for fever, chills, and weight loss, Cardiovascular: Negative pm1 for chest pain, palpitations, and edema, Respiratory: Negative for shortness of breath, cough, wheezing, and pleuritic chest pain, Abdomen/GI: Negative for abdominal pain, nausea, vomiting, diarrhea, and constipation, Back: Negative for injury and pain, MS/Extremity: Negative for injury and deformity, Skin: Negative for injury, rash, and discoloration. 17:48 Neuro: Positive for possible seizure episode. 17:48 All other systems are negative. Exam: 17:48 Constitutional: This is a well developed, well nourished patient who is awake, alert, pm1 and in no acute distress. Head/Face: Normocephalic, atraumatic. 17:48 Back: No spinal tenderness. No costovertebral tenderness. Full range of motion. Skin: Warm, dry with normal turgor. Normal color with no rashes, no lesions, and no evidence of cellulitis. MS/ Extremity: Pulses equal, no cyanosis. Neurovascular intact. Full, normal range of motion. 17:48 Eyes: Exam is negative for acute changes, Periorbital structures: appear normal, Extraocular movements: no acute changes, Conjunctiva: no acute changes, no injection. 17:48 Cardiovascular: Exam negative for acute changes, Rate: normal, Rhythm: regular, Pulses: no pulse deficits are appreciated, Heart sounds: normal, normal S1and S2. 17:48 Respiratory: Exam negative for acute changes, respiratory distress, shortness of breath, Breath sounds: are clear throughout. 17:48 Abdomen/GI: Inspection: abdomen appears normal, Palpation: abdomen is soft and non-tender, in all quadrants. 17:48 Neuro: Exam negative for acute changes, Orientation: no acute changes, Mentation: no acute changes, per family, Motor: is normal, moves all fours. Vital Signs: 17:21 Pulse 68; Resp 15; Temp 98.3; Pulse Ox 96% ; jl7 18:12 BP 113 / 55; jd3 19:01 Pulse 60; Resp 19 S; Pulse Ox 97% on R/A; jd3 20:04 BP 123 / 61; Pulse 72; Resp 18; Pulse Ox 97% on R/A; lg3 20:30 BP 103 / 58; Pulse 69; Resp 19; Pulse Ox 99% ; vc1 MDM: 17:43 Patient medically screened. pm1 21:14 Data reviewed: vital signs. Data interpreted: Pulse oximetry: on room air is 99 %. pm1 Interpretation: normal. Counseling: I had a detailed discussion with the patient and/or guardian regarding: the historical points, exam findings, and any diagnostic results supporting the discharge/admit diagnosis, lab results, radiology results, the need for outpatient follow up, to return to the emergency department if symptoms worsen or persist or if there are any questions or concerns that arise at home. 21:14 ED course: Patient without any seizure activity in the ER. Patient with possible pm1 seizure activity at home not witnessed by EMS on arrival. Therefore explained to the patient's that she will need to follow-up with her neurologist for further testing and evaluation. Patient improved in alertness with IV fluids given in the ER. 05/29 17:47 Order name: Urine Microscopic Only; Complete Time: 20:41 pm1 03/11 17:47 Order name: CBC with Diff; Complete Time: 18:11 pm1 03/11 17:47 Order name: CT Head Brain wo Cont; Complete Time: 18:29 pm1 03/11 17:47 Order name: CMP; Complete Time: 18:43 pm1 03/11 18:14 Order name: Glucose, Ancillary Testing; Complete Time: 18:21 EDMS 03/11 19:57 Order name: Urine Dipstick-Ancillary; Complete Time: 19:57 EDMS 03/11 17:47 Order name: Urine Dipstick-Ancillary (obtain specimen); Complete Time: 19:54 pm1 03/11 17:47 Order name: EKG; Complete Time: 17:48 pm1 03/11 17:47 Order name: EKG - Nurse/Tech; Complete Time: 18:11 pm1 03/11 17:47 Order name: IV Saline Lock; Complete Time: 18:02 pm1 03/11 17:47 Order name: Glucose Level; Complete Time: 18:02 pm1 03/11 18:22 Order name: Cath; Complete Time: 19:51 jd3 Administered Medications: 19:51 Drug: NS 0.9% 500 ml Route: IV; Rate: bolus; Site: left forearm; lg3 21:03 Drug: NS 0.9% 500 ml Route: IV; Rate: bolus; Site: right antecubital; vc1 Disposition Summary: 03/11/22 21:14 Discharge Ordered Location: Home pm1 Problem: new pm1 Symptoms: have improved pm1 Condition: Stable pm1 Diagnosis - Dehydration pm1 Followup: pm1 - With: Emergency Department - When: As needed - Reason: Worsening of condition Followup: pm1 - With: Private Physician - When: 2 - 3 days - Reason: Recheck today's complaints, Continuance of care, Re-evaluation by your physician Discharge Instructions: - Discharge Summary Sheet pm1 - Dehydration, Elderly pm1 - Rehydration, Elderly pm1 Forms: - Medication Reconciliation Form pm1 - Thank You Letter pm1 - Antibiotic Education pm1 - Prescription Opioid Use pm1 Signatures: Dispatcher [employer] EDMS Benito Stone, SIZER HAND SIZER HAND pm1 Aubrey Rawls RN RN [email or web address] Jaylen Harris, RN RN jd3 Edyta Manning, RN RN lg3 Mariluz Dewey, RN RN vc1
[2022-03-11 22:11] VITALS: TEMP 98.3
[2022-03-11 22:15] VITALS: BP 103/58; O2SAT 99
--- NOTE | 2022-03-13 12:21 | EKG ---
Test Date: 2022-03-11 Test Time: 18:04:39 Peripheral Vascular Tech: RANDALL MEASUREMENT RESULTS: Intervals: Rate: 67 LA: 222 QRSD: 82 QT: 426 QTc: 450 [place]: P: 71 LA: 222 QRS: -24 T: 129 INTERPRETIVE STATEMENTS: Sinus rhythm with 1st degree AV block Anterior infarct, age undetermined T wave abnormality, consider lateral ischemia Abnormal ECG No previous ECG available for comparison Electronically Signed On 03-13-22 12:16:57 CDT by Vamshi Corona
== END 2022-03-11 21:56 | disposition home or self-care (01) ==
LOC: ER 17:16
DX: E86.0 Dehydration (principal); E11.9 Type 2 diabetes mellitus without complications; G30.9 Alzheimer's disease, unspecified; F02.80 Dementia in other diseases classified elsewhere, unspecified severity, without behavioral disturbance, psychotic disturbance, mood disturbance, and anxiety
CPT/HCPCS: 93005; 85025; 36415; 82947; 80053; 70450; 99284; J7030; 81003; 81015

== ENCOUNTER 2024-01-14 15:37 | Emergency (ER) | payer OTHER ==
[2024-01-14 16:14] LABS: Absolute Eosinophils 0.2 K/uL (0-0.5); Absolute Lymphocytes (CBC) 1.3 K/uL (0.7-4.9); Absolute Monocytes 0.5 K/uL (0.1-1.3); Absolute Neutrophil 4.6 K/uL (1.8-8.0); Basophils % 0.6 % (0-1.3); Eosinophils % 2.5 % (0-4.4); Hematocrit 39.2 % (36.0-45.0); Hemoglobin 13.5 g/dL (12.0-15.0); Lymphocytes % 19.5 % (15.3-44.8); MCH 31.8 pg (27.0-35.0); MCHC 34.5 g/dL (32.0-36.0); MCV 92.3 fL (80-100); MPV 9.5 fL (7.6-11.3); Monocytes % 7.2 % (3.3-12.3); Neutrophils % 70.2 % (41.7-73.7); Nucleated Red Blood Cells % 0.1 % (0-0); Platelets 185 thou/uL (152-406); RBC Red Blood Cell Count 4.25 M/uL (3.86-4.86); Red Cell Distribution Width 13.8 % (12.1-15.2)
--- NOTE | 2024-01-14 16:20 | RAD REPORT ---
EXAM DESCRIPTION: CT - Head Brain Wo Cont - 01/14/2024 4:13 pm CLINICAL HISTORY: SEIZURE Headache, drowsiness COMPARISON: Head Brain Wo Cont dated 03/11/2022 TECHNIQUE: All CT scans are performed using dose optimization technique as appropriate and may inclu de automated exposure control or mA/KV adjustment according to patient size. FINDINGS: No intracranial hemorrhage, hydrocephalus or extra-axial fluid collection.Advanced global brain atrophy pattern.No areas of brain edema or evidence of midline shift. The paranasal sinuses and mastoids are clear. The calvarium is intact. IMPRESSION: No acute intracranial abnormality.
[2024-01-14 16:42] LABS: Albumin 2.8 g/dL (3.4-5.0); Albumin/Globulin Ratio 0.8 (1.1-1.8); Anion Gap 5.9 mEq/L (5.0-15.0); Bilirubin Direct 0.1 mg/dL (0-0.2); Bilirubin Indirect, Calculated 0.3 mg/dL (0.2-0.8); Bilirubin Total 0.4 mg/dL (0.2-1.0); Globulin 3.7 g/dL (2.3-3.5); Potassium 3.9 mEq/L (3.5-5.1); Protein, Total 6.5 g/dL (6.4-8.2); Troponin High Sensitivity 3.9 pg/mL (<58.9)
--- NOTE | 2024-01-14 16:48 | RAD REPORT ---
EXAM DESCRIPTION: RAD - Chest Single View - 01/14/2024 4:41 pm CLINICAL HISTORY: syncope Chest pain. COMPARISON: No comparisons FINDINGS: Portable technique limits examination quality. The lungs are emphysematous but grossly clear. The heart is normal in size. No displaced fractures. IMPRESSION: COPD.
--- NOTE | 2024-01-14 18:55 | ER ---
Nurse's Notes [facility] Name: Velma Pichardo Age: 83 yrs Sex: Female : 1940 Arrival Date: 01/14/2024 Time: 15:37 Bed 2 Private MD: Diagnosis: Syncope Presentation: 01/13 15:35 Initial Sepsis Screen: Does the patient meet any 2 criteria? No. Patient's initial ko1 sepsis screen is negative. Does the patient have a suspected source of infection? No. Patient's initial sepsis screen is negative. Risk Assessment: Do you want to hurt yourself or someone else? Patient reports no desire to harm self or others. Onset of symptoms was January 14, 2024. Care prior to arrival: Medication(s) given: Normal saline infusion, 500 mL, IV initiated. 20 GA, in the left antecubital area. Activity prior to arrival: seizure, unresponsive. Mechanism of Injury: No Mechanism of Injury. Transition of care: patient was not received from another setting of care. 15:35 Acuity: SHEMAR 2 ko1 15:59 Chief complaint: EMS states: patient was at exercise rehab and collapsed, had a grand ko1 mal seizure and then was unresponsive. Never had a sz before, does have advanced Alzheimer's, bp was initially in the 50's systolic. Coronavirus screen: At this time, the client does not indicate any symptoms associated with coronavirus-19. Ebola Screen: No symptoms or risks identified at this time. 15:59 Method Of Arrival: EMS: [facility] ko1 Triage Assessment: 16:03 General: Appears in no apparent distress. Behavior is drowsy. Pain: Denies pain. ko1 Historical: - Allergies: 16:03 No Known Allergies; ko1 - PMHx: 16:03 Alzheimer's disease; Diabetes - NIDDM; ko1 - PSHx: 16:03 Unable to Obtain; ko1 - Immunization history:: Adult Immunizations up to date. - Infectious Disease History:: Denies. - Social history:: Smoking status: Patient denies any tobacco usage or history of. - Family history:: not pertinent. Screenin:04 [facility] ED Fall Risk Assessment (Adult) History of falling in the last 3 months, ko1 including since admission No falls in past 3 months (0 pts) Confusion or Disorientation Yes (5 pts) Intoxicated or Sedated No (0 pts) Impaired Gait No (0 pts) Mobility Assist Device Used No (0 pt) Altered Elimination Yes (1 pt) Score/Fall Risk Level 3 or more points = High Risk Oriented to surroundings, Maintained a safe environment, Educated pt \T\ family on fall prevention, incl call for assistance when getting out of bed, Assessed \T\ reinforced patient's understanding of fall precautions, Provided non-skid footwear, Hourly rounding (assess needs \T\ fall precautionary measures) done, Used ambulatory aids as needed (educated on \T\ assisted with), Used gait belt as appropriate Implemented a Fall Risk Plan of Care, Apply high fall risk patient identification: yellow non skid footwear/ fall signage, Offered frequent toileting (1:1 observation), Remained with patient while ambulating, Utilized family, sitter, or virtual forest supervisor as indicated. Abuse screen: Denies threats or abuse. Denies injuries from another. Nutritional screening: No deficits noted. Tuberculosis screening: No symptoms or risk factors identified. Assessment: 16:04 Neuro: Seizure activity reported prior to arrival. Type of seizure: grand mal seizure. ko1 Cardiovascular: No deficits noted. Respiratory: No deficits noted. GI: No deficits noted. : No deficits noted. EENT: No deficits noted. Derm: No deficits noted. Musculoskeletal: No deficits noted. 19:00 Reassessment: Patient and/or family updated on plan of care and expected duration. Pain vc1 level reassessed. Pt waiting to be discharged. Vital Signs: 15:35 BP 113 / 74; Pulse 50; Resp 14; Temp 98; Pulse Ox 100% on R/A; ko1 16:04 BP 125 / 45; Pulse 53; Resp 15; Pulse Ox 100% ; ko1 17:11 BP 137 / 69; Pulse 60; Resp 15; Pulse Ox 97% ; ko1 18:28 BP 140 / 82; Pulse 53; Resp 16; Pulse Ox 100% ; ko1 19:15 BP 137 / 61; Pulse 54; Resp 16; Temp 97.9; Pulse Ox 99% ; pf1 ED Course: 15:38 Patient arrived in ED. ko1 15:38 Carlos Alberto Guadarrama MD is Attending Physician. rt 15:42 Elisa Nino RN is Primary Nurse. ko1 15:57 Lactate w/ 2H reflex if indic. Sent. ko1 15:57 Basic Metabolic Panel Sent. ko1 15:57 CBC with Diff Sent. ko1 15:57 LFT's Sent. ko1 15:57 Magnesium Sent. ko1 15:57 Troponin HS Sent. ko1 16:00 Initial lab(s) drawn, by me, sent to lab. EKG done, by ED staff, reviewed by Carlos Alberto Guadarrama MD. 16:03 Triage completed. ko1 16:03 Arm band placed on right wrist. Patient placed in an exam room, on a stretcher, on ko1 youth nutritional monitor, on pulse oximetry, Patient notified of wait time. 16:04 Maintain EMS IV. Dressing intact. Good blood return noted. Site clean \T\ dry. Gauge \T\ ko 1 site: 20g left AC. 16:04 Patient has correct armband on for positive identification. Fall risk band placed. ko1 Placed in gown. Bed in low position. Call light in reach. Side rails up X2. Seizure precautions initiated. Provided Education on: na. Client placed on continuous cardiac and pulse oximetry monitoring. NIBP monitoring applied. gambling monitor on. Door closed. Noise minimized. Lights dimmed. Warm blanket given. Cleaned of incontinence. 16:15 CT Head Brain wo Cont In Process Unspecified. EDMS 16:43 XRAY Chest (1 view) In Process Unspecified. EDMS 19:27 No provider procedures requiring assistance completed. IV discontinued, intact, vc1 bleeding controlled, No redness/swelling at site. Pressure dressing applied. Administered Medications: No medications were administered Medication: 16:04 VIS not applicable for this client. ko1 Outcome: 18:54 Discharge ordered by . rt 19:28 Discharged to home via wheelchair, with significant other, vc1 19:28 Condition: good 19:28 Instructed on discharge instructions, follow up and referral plans. 19:42 Patient left the ED. pf1 Signatures: Dispatcher [employer] EDMS Mariluz Dewey RN RN vc1 Elisa Nino RN RN ko1 Carlos Alberto Guadarrama MD MD rt Freda Hwang RN RN pf1 Corrections: (The following items were deleted from the chart) 19:42 19:15 BP 137 / 61; Pulse 54bpm; Resp 16bpm; Pulse Ox 99%; vc1 pf1
--- NOTE | 2024-01-14 18:55 | EDPHYS ---
Physician Documentation [facility] Name: Velma Pichardo Age: 83 yrs Sex: Female : 1940 Arrival Date: 01/14/2024 Time: 15:37 Bed 2 Private MD: ED Physician Carlos Alberto Guadarrama HPI: 01/13 17:08 This 83 yrs old Female presents to ER via EMS with complaints of syncope. rt 17:08 Patient presents to the ED with reported syncopal event, 1 episode of reported rt seizure-like activity. No previous history of seizure-like activity. Patient's blood pressure was initially 70 systolic, did improve with IV fluids, patient's mentation did improve as well. No further history could be obtained, history limited due to patient with advanced dementia, symptoms are moderate severity, no other aggravating or alleviating factors.. Historical: - Allergies: 16:03 No Known Allergies; ko1 - PMHx: 16:03 Alzheimer's disease; Diabetes - NIDDM; ko1 - PSHx: 16:03 Unable to Obtain; ko1 - Immunization history:: Adult Immunizations up to date. - Infectious Disease History:: Denies. - Social history:: Smoking status: Patient denies any tobacco usage or history of. - Family history:: not pertinent. ROS: 17:08 Unable to obtain ROS due to baseline dementia, rt Exam: 17:08 Constitutional: This is a well developed, well nourished patient who is awake, alert, rt and in no acute distress. Head/Face: Normocephalic, atraumatic. Chest/axilla: Normal chest wall appearance and motion. Nontender with no deformity. No lesions are appreciated. Cardiovascular: Regular rate and rhythm with a normal S1 and S2. No gallops, murmurs, or rubs. Normal PMI, no JVD. No pulse deficits. Respiratory: Lungs have equal breath sounds bilaterally, clear to auscultation and percussion. No rales, rhonchi or wheezes noted. No increased work of breathing, no retractions or nasal flaring. Abdomen/GI: Soft, non-tender, with normal bowel sounds. No distension or tympany. No guarding or rebound. No evidence of tenderness throughout. Skin: Warm, dry with normal turgor. Normal color with no rashes, no lesions, and no evidence of cellulitis. MS/ Extremity: Pulses equal, no cyanosis. Neurovascular intact. Full, normal range of motion. 17:08 ECG was reviewed by the Attending Physician. Vital Signs: 15:35 BP 113 / 74; Pulse 50; Resp 14; Temp 98; Pulse Ox 100% on R/A; ko1 16:04 BP 125 / 45; Pulse 53; Resp 15; Pulse Ox 100% ; ko1 17:11 BP 137 / 69; Pulse 60; Resp 15; Pulse Ox 97% ; ko1 18:28 BP 140 / 82; Pulse 53; Resp 16; Pulse Ox 100% ; ko1 19:15 BP 137 / 61; Pulse 54; Resp 16; Temp 97.9; Pulse Ox 99% ; pf1 MDM: 15:38 Patient medically screened. rt 20:24 Differential Diagnosis Seizure, syncope, dysrhythmia. Data reviewed: vital signs, rt nurses notes, lab test result(s), EKG, radiologic studies. Consideration of Admission/Observation Escalation of care including admission/observation considered. Consideration was given to dysrhythmia, seizure, syncope. Patient's workup is fairly benign. I discussed the findings with the , I did recommend that the patient be admitted to the hospital for further evaluation. Asthma states that he does not wish for her to be admitted to the hospital. He understands that dysrhythmia, cardiac event have not been ruled out. He will follow-up as an outpatient. Strict return precautions were discussed, he understands that he may return at any time if he changes his mind.. I considered the following discharge prescriptions or medication management in the emergency department Medications were administered in the Emergency Department. See MAR. Independent interpretation of the following test(s) in the Emergency Department CT Scan: My interpretation is No intracranial hemorrhage seen on interpretation of CT scan images. Care significantly affected by the following chronic conditions: Diabetes. Counseling: I had a detailed discussion with the patient and/or guardian regarding the historical points, exam findings, and any diagnostic results supporting the discharge/admit diagnosis, lab results, radiology results, the need for outpatient follow up, to return to the emergency department if symptoms worsen or persist or if there are any questions or concerns that arise at home. 01/13 15:39 Order name: Basic Metabolic Panel; Complete Time: 16:49 rt 01/13 15:39 Order name: CBC with Diff; Complete Time: 16:23 rt 04 15:39 Order name: LFT's; Complete Time: 16:49 rt 04 15:39 Order name: Magnesium; Complete Time: 16:49 rt 01/13 15:39 Order name: Troponin HS; Complete Time: 16:49 rt 01/13 15:39 Order name: Lactate w/ 2H reflex if indic.; Complete Time: 16:35 rt 04 15:39 Order name: XRAY Chest (1 view); Complete Time: 16:49 rt 04 15:39 Order name: CT Head Brain wo Cont; Complete Time: 16:23 rt 04 15:39 Order name: Cardiac monitoring; Complete Time: 15:43 rt 04 15:39 Order name: EKG - Nurse/Tech; Complete Time: 16:40 rt 04 15:39 Order name: IV Saline Lock; Complete Time: 15:43 rt 04 15:39 Order name: Labs collected and sent; Complete Time: 15:57 rt 01/13 15:39 Order name: O2 Per Protocol; Complete Time: 15:43 rt 04 15:39 Order name: O2 Sat Monitoring; Complete Time: 15:43 rt EC:08 Rate is 53 beats/min. Rhythm is regular, Sinus bradycardia with No ectopy. QRS [place] is rt Normal. [place] interval is prolonged at 224 msec. QRS interval is normal. QT interval is normal. No Q waves. T waves are Normal. No ST changes noted. Interpreted by me. Administered Medications: No medications were administered Disposition Summary: 01/14/24 18:54 Discharge Ordered Notes: Location: Home rt Problem: new rt Symptoms: have improved rt Condition: Fair rt Diagnosis - Syncope rt Followup: rt - With: Private Physician - When: 2 - 3 days - Reason: Discharge Instructions: - Discharge Summary Sheet rt - Syncope rt Forms: - Medication Reconciliation Form rt - Thank You Letter rt - Antibiotic Education rt - Prescription Opioid Use rt - Patient Portal Instructions rt - Leadership Thank You Letter rt Signatures: Dispatcher [employer] EDMS Elisa Nino, RN RN ko1 Carlos Alberto Guadarrama MD MD rt Corrections: (The following items were deleted from the chart) 15:40 15:40 BASIC METABOLIC PANEL+C.LAB.BRZ ordered. EDMS EDMS 15:40 15:40 CBC+H.LAB.BRZ ordered. EDMS EDMS 15:40 15:40 HEPATIC FUNCTION+C.LAB.BRZ ordered. EDMS EDMS 15:40 15:40 MAGNESIUM+C.LAB.BRZ ordered. EDMS EDMS 15:40 15:40 Troponin High Sensitivity+C.LAB.BRZ ordered. EDMS EDMS 15:40 15:40 LACTATE+C.LAB.BRZ ordered. EDMS EDMS 15:40 15:40 Urinalysis W/Microscopic+U.LAB.BRZ ordered. EDMS EDMS 15:40 15:40 Chest Single View+RAD.RAD.BRZ ordered. EDMS EDMS 15:40 15:40 Head Brain Wo Cont+CT.RAD.BRZ ordered. EDMS EDMS
[2024-01-14 22:16] VITALS: BP 137/61; TEMP 97.9; O2SAT 99
--- NOTE | 2024-01-16 15:44 | EKG ---
Test Date: 2024-01-14 Test Time: 16:38:16 Access Liaison: PH MEASUREMENT RESULTS: Intervals: Rate: 53 MA: 224 QRSD: 82 QT: 448 QTc: 420 [place]: P: 97 MA: 224 QRS: 16 T: 49 INTERPRETIVE STATEMENTS: Sinus bradycardia with 1st degree AV block Otherwise normal ECG Compared to ECG 03/11/2022 18:04:39 Sinus rhythm no longer present Myocardial infarct finding no longer present T-wave abnormality no longer present Possible ischemia no longer present Electronically Signed On 01-16-24 15:40:12 CDT by Fareed Baez
== END 2024-01-14 19:42 | disposition home or self-care (01) ==
LOC: ER 15:37
DX: R55 Syncope and collapse (principal); G30.9 Alzheimer's disease, unspecified; F02.80 Dementia in other diseases classified elsewhere, unspecified severity, without behavioral disturbance, psychotic disturbance, mood disturbance, and anxiety
CPT/HCPCS: 36415; 70450; 71045; 80048; 80076; 83605; 83735; 84484; 85025; 93005; 99285